=== PATIENT | female | born 1985 | race Caucasian/White ===

== ENCOUNTER 2016-02-13 06:37 | Inpatient (IN) | payer OTHER ==
[2016-02-13] MEDS ORDERED: OXYTOCIN/NORMAL SALINE 1,000 ML IV PRN ×2 (06:58→18:13)
[2016-02-13] MEDS ORDERED: RINGERS SOLUTION,LACTATED 300 ML IV ONE (06:58)
[2016-02-13 07:08] LABS: APPEARANCE,URINE CLOUDY; BILIRUBIN,URINE NEGATIVE (NEGATIVE); GLUCOSE, URINE NEGATIVE (NEGATIVE); KETONES,URINE NEGATIVE (NEGATIVE); LEUKOCYTE ESTERASE,URINE LARGE (NEGATIVE); NITRITE,URINE NEGATIVE (NEGATIVE); PROTEIN,URINE NEGATIVE (NEGATIVE); UROBILINOGEN,URINE NEGATIVE mg/dL (<2.0)
[2016-02-13 07:29] LABS: URINE BARBITURATES SCREEN NEGATIVE; URINE METHADONE SCREEN NEGATIVE; URINE PHENCYCLIDINE SCREEN NEGATIVE
[2016-02-13 07:39] LABS: ABSOLUTE EOSINOPHILS # (AUTO) 0.1 10^3/uL (0.0-0.6); ABSOLUTE LYMPHOCYTES (AUTO) 1.2 10^3/uL (0.5-4.7); ABSOLUTE MONOCYTES (AUTO) 0.7 10^3/uL (0.1-1.4); ABSOLUTE NEUT (AUTO) 7.1 10^3/uL (1.7-8.2); BASOPHILS % (AUTO) 0.3 % (0-2); EOSINOPHILS % (AUTO) 0.8 % (0-6); HEMATOCRIT 36.5 % (36.0-47.0); HEMOGLOBIN 12.5 g/dL (12.0-15.5); LYMPHOCYTES % (AUTO) 12.8 % (13-45); MEAN CORPUSCULAR HGB CONC 34.4 g/dL (32.0-36.0); MEAN CORPUSCULAR VOLUME 87 fl (80-97); MONOCYTES % (AUTO) 7.4 % (3-13); RED BLOOD COUNT 4.18 10^6/uL (3.72-5.28); RED CELL DISTRIBUTION WIDTH 13.5 % (11.5-14.0); SEGMENTED NEUTROPHILS % (AUTO) 78.7 % (42-78); WHITE BLOOD COUNT 9.1 10^3/uL (4.0-10.5)
[2016-02-13] MEDS ORDERED: MAG HYDROX/AL HYDROX/SIMETH SUSP 30 ML UDCUP ONE (07:59)
[2016-02-13] MEDS ORDERED: MAG HYDROX/AL HYDROX/SIMETH SUSP 30 ML UDCUP PO ONE (08:00)
--- NOTE | 2016-02-13 08:01 | L&D Flow Sheet ---
LD Flowsheet Datetime Report Generated by CPN: 02/13/2016 08:00 Datetime: 02/13/2016 07:33 NBP Sys/Dianne/Mean (mmHg): 116 (QS system process) : 74 (QS system process) : 90 (QS system process) Pulse: 93 (QS system process) LaborFlag: Labor (QS system process) Datetime: 02/13/2016 07:30 Vital Signs Stage of : Labor (Aida Mills, RN) Respirations: 16 (Aida Mills, RN) Temperature (F): 98.2 (Aida Mills, RN) Temperature (C): 36.8 (QS system process) Uterine Activity Monitor Mode: External (Aida Mills, RN) Frequency (min): NONE (Aida Mills, RN) Resting Tone (Palpate): Relaxed (Aida Mills, RN) Assessment A Monitor Mode: External US (Aida Mills, RN) FHR Baseline Rate : 140 (Aida Mills, RN) FHR Baseline Changes: No Baseline Change (Aida Mills, RN) Variability: Moderate 6-25 bpm (Aida Mills, RN) Accelerations: 15X15 (Aida Mills, RN) Decelerations: None (Aida Mills, RN) Pain Pain Scale: 0 (Aida Mills, [place]) Pain Presence: None/Denies (Aida Mills, RN) Pain Type: N/A (Aida Mills, RN) Pain Relief Measures: Comfort Measures (Aida Mills, RN) Vaginal Exam Membrane Status: Intact (Aida Mills, [place]) Patient Position/Activity: Left Tilt; Semi-Fowlers (Aida Mills, RN) Comfort Measures: Family Support (Aida Mills, [place]) Teaching Instructional Method: Verbal; Patient Instructed; Family/Support Person Instructed; Verbalized Understanding (Aida Mills RN) Plan of Care: Plan of Care Discussed; Induction (Aida Mills RN) Labor/Induction: Labor Stages; Induction (Aida Mills RN) Pain Management: Pain Scale/Goals; Comfort Measures (Aida Mills RN) Medications: Pitocin (Aida Mills RN) Communication Communication: RN at Bedside; RN Reviewed Strip (Aida Mills RN) LaborFlag: Labor (QS system process) Datetime: 02/13/2016 07:18 Communication Comments: Bedside report given to L Rouland, RN (Maame Seth, RN) Datetime: 02/13/2016 07:15 Patient Care IV/Blood Work: Labs Drawn (Maame Seth, RN) Datetime: 02/13/2016 07:11 Patient Care IV/Blood Work: IV Started; IV Bolus Started; IV Infusing per Order; New IV Bag Silvino (Opal Buck RN)
[2016-02-13] MEDS ORDERED: MISOPROSTOL 0.2 MG TABLET ONE (08:08)
[2016-02-13] MEDS ORDERED: OXYTOCIN/NORMAL SALINE 20 UNIT/1,000 ML RTUINJ ONE (08:08)
[2016-02-13] MEDS ORDERED: LIDOCAINE 1% INJ-PF (10 MG/ML) 30 ML SDV ONE (08:08)
[2016-02-13] MEDS: RINGERS SOLUTION,LACTATED 1,000 ML IV PRN ×3 (10:06→14:21)
[2016-02-13] MEDS ORDERED: ONDANSETRON 4 MG TAB.RAPDIS ONE (11:17)
[2016-02-13] MEDS ORDERED: ONDANSETRON 4 MG TAB.RAPDIS PO ONE (11:30)
--- NOTE | 2016-02-13 12:02 | L&D Flow Sheet ---
LD Flowsheet Datetime Report Generated by CPN: 02/13/2016 12:00 Datetime: 02/13/2016 11:45 Stage of : Labor (Aida Mills RN) Respirations: 18 (Aida Mills RN) Monitor Mode: External (Aida Mills RN) Monitor Interventions for UA: [place] Adjusted (Aida Mills RN) Frequency (min): 1.5-5.5 (Aida Mills RN) Quality: Mild/Moderate (Aida Mills RN) Duration (sec): 55-120 (Aida Mills RN) Resting Tone (Palpate): Relaxed (Aida Mills RN) Monitor Mode: External US (Aida Mills RN) Monitor Interventions for FHR: Ultrasound Adjusted (Aida Mills RN) FHR Baseline Rate : 130 (Aida Mills RN) FHR Baseline Changes: No Baseline Change (Aida Mills RN) Variability: Moderate 6-25 bpm (Aida Mills RN) Accelerations: None (Aida Mills RN) Decelerations: None (Aida Mills RN) Pain Scale: 1 (Aida Mills RN) Pain Presence: Intermittent (Aida Mills RN) Pain Type: Contraction (Aida Mills RN) Pain Location: Abdomen (Aida Mills RN) Pain Relief Measures: Comfort Measures (Aida Mills RN) Pain Coping: Talking Through Contractions (Aida Mills RN) Pitocin (milliunit): Pitocin Remains (milliunits) @ 20 (Aida Mills, [place]) IV/Blood Work: IV Infusing per Order (Adia Mills, [place]) Comfort Measures: Rocking Chair; Family Support (Aida Mills, [place]) Communication: RN at Bedside; RN Reviewed Strip (Aida Mills RN) LaborFlag: Labor (QS system process) Datetime: 02/13/2016 11:40 Stage of : Labor (Aida Mills RN) Monitor Interventions for FHR: Ultrasound Adjusted (Aida Mills RN) Communication: RN at Bedside; RN Reviewed Strip (Aida Mills RN) Datetime: 02/13/2016 11:33 NBP Sys/Dianne/Mean (mmHg): 114 (QS system process) : 72 (QS system process) : 87 (QS system process) Pulse: 94 (QS system process) LaborFlag: Labor (QS system process) Datetime: 02/13/2016 11:30 Stage of : Labor (Aida Mills RN) Respirations: 18 (Aida Mills RN) Monitor Mode: External (Aida Mills RN) Monitor Interventions for UA: [place] Adjusted (Aida Mills RN) Frequency (min): 2.5-3 (Aida Mills RN) Quality: Mild/Moderate (Aida Mills RN) Duration (sec): 60-70 (Aida Mills, RN) Resting Tone (Palpate): Relaxed (Aida Mills RN) Monitor Mode: External US (Aida Mills RN) Monitor Interventions for FHR: Ultrasound Adjusted (Aida Mills RN) FHR Baseline Rate : 125 (Aida Mills RN) FHR Baseline Changes: No Baseline Change (Aida Mills RN) Variability: Moderate 6-25 bpm (Aida Jess Roulund, RN) Accelerations: 15X15 (Aida Mills, [place]) Decelerations: None (Aida Mills, RN) Pain Scale: 1 (Aida Mills RN) Pain Presence: Intermittent (Aida Mills RN) Pain Type: Contraction (Aida Mills RN) Pain Location: Abdomen (Aida Mills, RN) Pain Relief Measures: Comfort Measures (Aida Mills RN) Pain Coping: Talking Through Contractions (iAda Mills, [place]) Pitocin (milliunit): Pitocin Remains (milliunits) @ 20 (Aida Mills, RN) IV/Blood Work: IV Infusing per Order; New IV Bag Hung (Aida Mills, [place]) Comfort Measures: Rocking Chair; Family Support (Aida Mills, [place]) I/O Interventions: Ice Chips Given (Aida Mills, RN) Communication: RN at Bedside; RN Reviewed Strip (Aida Mills, [place]) LaborFlag: Labor (QS system process) Datetime: 02/13/2016 11:20 Stage of : Labor (Aida Mills, [place]) Monitor Interventions for UA: [place] Adjusted (Aida Mills, [place]) Monitor Interventions for FHR: Ultrasound Adjusted (Aida Mills, [place]) Antiemetics/Antacids: Zofran PO (mg) @ 1120 (Aida Mills, RN) I/O Interventions: Up to BR (Aida Mills, [place]) Communication: RN at Bedside (Aida Mills RN) Datetime: 02/13/2016 11:15 Stage of : Labor (Aida Mills RN) Respirations: 18 (Aida Mills RN) Monitor Mode: External (Aida Mills RN) Frequency (min): 2-3 (Aida Mills RN) Quality: Mild/Moderate (Aida Mills RN) Duration (sec): 60-80 (Aida Mills RN) Resting Tone (Palpate): Relaxed (Aida Mills RN) Monitor Mode: External US (Aida Mills RN) FHR Baseline Rate : 130 (Aida Mills RN) FHR Baseline Changes: No Baseline Change (Aida Mills RN) Variability: Moderate 6-25 bpm (Aida Mills RN) Accelerations: 15X15 (Aida Mills RN) Decelerations: None (Aida Mills RN) Pain Scale: 1 (Aida Mills RN) Pain Presence: Intermittent (Aida Mills RN) Pain Type: Contraction (Aida Mills RN) Pain Location: Abdomen (Aida Mills RN) Pain Relief Measures: Comfort Measures (Aida Mills RN) Pain Coping: Talking Through Contractions (Aida Mills RN) Nausea/Vomiting: Present (Aida Mills RN) Pitocin (milliunit): Pitocin Remains (milliunits) @ 20 (Aida Mills RN) Patient Position/Activity: Right Tilt; Semi-Fowlers (Aida Mills, RN) Comfort Measures: Family Support (Aida Mills, RN) Patient Care Comments: emesis X1 (Aida Mills, RN) Communication: Provider Orders Received (Aida Mills, RN) Communication: RN at Bedside; RN Reviewed Strip; Report Given to @ Blanca TELLO CNM (Aida Mills, [place]) Notification Reason: Status Update (Aida Mills RN) LaborFlag: Labor (QS system process) Datetime: 02/13/2016 11:04 NBP Sys/Dianne/Mean (mmHg): 117 (QS system process) : 77 (QS system process) : 92 (QS system process) Pulse: 81 (QS system process) LaborFlag: Antepartum (QS system process) Datetime: 02/13/2016 11:00 Stage of : Antepartum (Aida Mills RN) Respirations: 18 (Aida Mills RN) Monitor Mode: External (Aida Mills RN) Frequency (min): 2.5-3 (Aida Mills RN) Quality: Mild (Aida Mills RN) Duration (sec): 60-80 (Aida Mills, [place]) Resting Tone (Palpate): Relaxed (Aida Mills, [place]) Monitor Mode: External US (Aida Mills RN) FHR Baseline Rate : 130 (Aida Mills RN) FHR Baseline Changes: No Baseline Change (Aida Mills RN) Variability: Moderate 6-25 bpm (Aida Mills, [place]) Accelerations: 15X15 (Aida Mills, [place]) Decelerations: None (Aida Mills, [place]) Pain Scale: 0 (Aida Mills RN) Pain Presence: Intermittent (Aida Mills RN) Pain Type: Cramping (Aida Mills, [place]) Pain Location: Abdomen (Aida Mills, [place]) Pain Relief Measures: Comfort Measures (Aida Mills, [place]) Pain Coping: Talking Through Contractions (Aida Mills, [place]) Pitocin (milliunit): Pitocin Remains (milliunits) @ 20 (Aida Mills, RN) IV/Blood Work: IV Infusing per Order (Aida Mills, RN) Patient Position/Activity: Left Tilt; Semi-Fowlers (Aida Mills, RN) Comfort Measures: Family Support (Aida Mills, RN) Communication: RN at Bedside; RN Reviewed Strip (Aida Mills, [place]) LaborFlag: Antepartum (QS system process) Datetime: 02/13/2016 10:45 Stage of : Antepartum (Aida Mills RN) Respirations: 16 (Aida Mills RN) Monitor Mode: External (Aida Mills RN) Frequency (min): 3.5 (Aida Mills RN) Quality: Mild (Aida Mills RN) Duration (sec): 60-80 (Aida Mills, RN) Resting Tone (Palpate): Relaxed (Aida Mills, [place]) Monitor Mode: External US (Aida Mills RN) FHR Baseline Rate : 130 (Aida Mills RN) FHR Baseline Changes: No Baseline Change (Aida Mills RN) Variability: Moderate 6-25 bpm (Aida Mills RN) Accelerations: 15X15 (Aida Mills, RN) Decelerations: None (Aida Mills, [place]) Pain Relief Measures: Comfort Measures (Aida Mills RN) Pain Coping: Talking Through Contractions (Aida Mills, [place]) Pitocin (milliunit): Pitocin Remains (milliunits) @ 20 (Aida Mills, [place]) IV/Blood Work: IV Infusing per Order (Aida Mills, [place]) Patient Position/Activity: Left Tilt; Semi-Fowlers (Aida Mills, RN) Comfort Measures: Family Support (Aida Mills, [place]) Communication: RN at Bedside; RN Reviewed Strip (Aida Mills RN) LaborFlag: Antepartum (QS system process) Datetime: 02/13/2016 10:33 NBP Sys/Dianne/Mean (mmHg): 120 (QS system process) : 74 (QS system process) : 91 (QS system process) Pulse: 86 (QS system process) LaborFlag: Antepartum (QS system process) Datetime: 02/13/2016 10:30 Stage of : Antepartum (Aida Mills RN) Respirations: 18 (Aida Mills RN) Monitor Mode: External (Aida Mills RN) Frequency (min): 3-4 (Aida Mills RN) Quality: Mild (Aida Mills RN) Duration (sec): 60-80 (Aida Mills RN) Resting Tone (Palpate): Relaxed (Aida Mills RN) Monitor Mode: External US (Aida Mills RN) FHR Baseline Rate : 135 (Aida Mills RN) FHR Baseline Changes: No Baseline Change (Aida Mills RN) Variability: Moderate 6-25 bpm (Aida Mills RN) Accelerations: 15X15 (Aida Mills RN) Decelerations: None (Aida Mills RN) Pain Relief Measures: Comfort Measures (Aida Mills RN) Pain Coping: Talking Through Contractions (Aida Mills RN) Pitocin (milliunit): Pitocin Increased to (milliunits) @ 20 (Aida Mills, [place]) Patient Position/Activity: Left Tilt; Semi-Fowlers (Aida Mills, [place]) Comfort Measures: Family Support (Aida Mills RN) Communication: RN at Bedside; RN Reviewed Strip (Aida Mills RN) LaborFlag: Antepartum (QS system process) Datetime: 02/13/2016 10:14 Stage of : Antepartum (Aida Mills RN) Respirations: 18 (Aida Mills RN) Monitor Mode: External (Aida Mills RN) Frequency (min): 2.5-3 (Aida Mills RN) Quality: Mild (Aida Mills RN) Duration (sec): 60-80 (Aida Mills RN) Resting Tone (Palpate): Relaxed (Aida Mills RN) Monitor Mode: External US (Aida Mills RN) FHR Baseline Rate : 135 (Aida Mills RN) FHR Baseline Changes: No Baseline Change (Aida Mills RN) Variability: Moderate 6-25 bpm (Aida Mills RN) Accelerations: 15X15 (Aida Mills RN) Decelerations: None (Aida Mills RN) Pain Relief Measures: Comfort Measures (Aida Mills RN) Pain Coping: Talking Through Contractions (Aida Mills RN) Pitocin (milliunit): Pitocin Increased to (milliunits) @ 18 (Aida Mills RN) Patient Position/Activity: Left Tilt; Semi-Fowlers (Aida Mills RN) Comfort Measures: Family Support (Aida Mills RN) Communication: RN at Bedside; RN Reviewed Strip (Aida Mills RN) LaborFlag: Antepartum (QS system process) Datetime: 02/13/2016 10:03 NBP Sys/Dianne/Mean (mmHg): 112 (QS system process) : 72 (QS system process) : 87 (QS system process) Pulse: 90 (QS system process) LaborFlag: Antepartum (QS system process) Datetime: 02/13/2016 10:00 Stage of : Antepartum (Aida Mills RN) Respirations: 16 (Aida Mills RN) Monitor Mode: External (Aida Mills RN) Frequency (min): 2.5-4 (Aida Mills RN) Quality: Mild (Aida Mills RN) Duration (sec): 80-100 (Aida Mills, [place]) Resting Tone (Palpate): Relaxed (Aida Mills RN) Monitor Mode: External US (Aida Mills RN) FHR Baseline Rate : 135 (Aida Mills RN) FHR Baseline Changes: No Baseline Change (Aida Mills RN) Variability: Moderate 6-25 bpm (Aida Mills, [place]) Accelerations: 15X15 (Aida Mills, [place]) Decelerations: None (Aida Mills RN) Pain Scale: 1 (Aida Mills RN) Pain Presence: None/Denies (Aida Mills RN) Pain Type: Cramping (Aida Mills RN) Pain Location: Abdomen (Aida Mills RN) Pain Relief Measures: Comfort Measures (Aida Mills RN) Pain Coping: Talking Through Contractions (Aida Mills, [place]) Pitocin (milliunit): Pitocin Increased to (milliunits) @ 16 (Aida Mills, [place]) Patient Position/Activity: Left Tilt; Semi-Fowlers (Aida Mills, RN) Comfort Measures: Family Support (Aida Mills, [place]) Communication: RN at Bedside; RN Reviewed Strip (Aida Mills RN) LaborFlag: Antepartum (QS system process) Datetime: 02/13/2016 09:45 Stage of : Antepartum (Aida Mills RN) Respirations: 16 (Aida Mills RN) Monitor Mode: External (Aida Mills RN) Frequency (min): 3-5 (Aida Mills RN) Quality: Mild (Aida Mills RN) Duration (sec): 80-120 (Aida Mills RN) Resting Tone (Palpate): Relaxed (Aida Mills RN) Monitor Mode: External US (Aida Mills RN) FHR Baseline Rate : 135 (Aida Mills RN) FHR Baseline Changes: No Baseline Change (Aida Mills RN) Variability: Moderate 6-25 bpm (Aida Mills RN) Accelerations: 15X15 (Aida Mills RN) Decelerations: None (Aida Mills RN) Pain Relief Measures: Comfort Measures (Aida Mills RN) Pain Coping: Talking Through Contractions (Aida Mills, [place]) Pitocin (milliunit): Pitocin Increased to (milliunits) @ 14 (Aida Mills, [place]) IV/Blood Work: IV Infusing per Order (Aida Mills, [place]) Patient Position/Activity: Left Tilt; Semi-Fowlers (Aida Mills, RN) Comfort Measures: Family Support (Aida Mills, [place]) Communication: RN at Bedside; RN Reviewed Strip (Aida Mills, [place]) LaborFlag: Antepartum (QS system process) Datetime: 02/13/2016 09:34 NBP Sys/Dianne/Mean (mmHg): 115 (QS system process) : 74 (QS system process) : 90 (QS system process) Pulse: 93 (QS system process) LaborFlag: Antepartum (QS system process) Datetime: 02/13/2016 09:30 Stage of : Antepartum (Aida Mills RN) Respirations: 16 (Aida Mlils RN) Monitor Mode: External (Aida Mills RN) Frequency (min): 3-4 (Aida Mills RN) Quality: Mild (Aida Mills RN) Duration (sec): 80-100 (Aida Mills RN) Resting Tone (Palpate): Relaxed (Aida Mills RN) Monitor Mode: External US (Aida Mills RN) FHR Baseline Rate : 135 (Aida Mills RN) FHR Baseline Changes: No Baseline Change (Aida Mills RN) Variability: Moderate 6-25 bpm (Aida Mills RN) Accelerations: 15X15 (Aida Mills RN) Decelerations: None (Aida Mills RN) Pain Scale: 0 (Aida Mills RN) Pain Presence: Intermittent (Aida Mills RN) Pain Type: Cramping (Aida Jess Roulund, RN) Pain Location: Abdomen (Aida Mills, RN) Pain Relief Measures: Comfort Measures (Aiad Mills, RN) Pain Coping: Talking Through Contractions (Aida Mills, RN) Pitocin (milliunit): Pitocin Increased to (milliunits) @ 12 (Aida Mills, RN) Patient Position/Activity: Left Tilt; Semi-Fowlers (Aida Mills, RN) Comfort Measures: Family Support (Aida Mills, RN) Communication: RN at Bedside; RN Reviewed Strip; Provider at Bedside (Aida Mills, RN) Communication Comments: Blanca TELLO, JEAN @ BS (Aida Mills, RN) LaborFlag: Antepartum (QS system process) Datetime: 02/13/2016 09:15 Stage of : Antepartum (Aida Mills RN) Respirations: 16 (Aida Mills RN) Monitor Mode: External (Aida Mills RN) Frequency (min): 3.5-4.5 (Aida Mills, [place]) Quality: Mild (Aida Mills, RN) Duration (sec): 70-90 (Aida Mills, RN) Resting Tone (Palpate): Relaxed (Aida Mills, [place]) Monitor Mode: External US (Aida Mills RN) FHR Baseline Rate : 135 (Aida Mills RN) FHR Baseline Changes: No Baseline Change (Aida Mills RN) Variability: Moderate 6-25 bpm (Aida Mills RN) Accelerations: 10X10 (Aida Mills RN) Decelerations: None (Aida Mills RN) Pain Relief Measures: Comfort Measures (Aida Mills RN) Pain Coping: Talking Through Contractions (Aida Mills RN) Pitocin (milliunit): Pitocin Increased to (milliunits) @ 10 (Aida Mills, RN) Patient Position/Activity: Left Tilt; Semi-Fowlers (Aida Mills, [place]) Comfort Measures: Family Support (Aida Mills RN) Communication: RN at Bedside; RN Reviewed Strip (Aida Mills RN) LaborFlag: Antepartum (QS system process) Datetime: 02/13/2016 09:04 NBP Sys/Dianne/Mean (mmHg): 111 (QS system process) : 71 (QS system process) : 85 (QS system process) Pulse: 93 (QS system process) LaborFlag: Antepartum (QS system process) Datetime: 02/13/2016 09:00 Stage of : Antepartum (Aida Mills RN) Respirations: 16 (Aida Mills RN) Monitor Mode: External (Aida Mills RN) Frequency (min): 2.5-4 (Aida Mills RN) Quality: Mild (Aida Mills RN) Duration (sec): 60-70 (Aida Mills RN) Resting Tone (Palpate): Relaxed (Aida Mills RN) Monitor Mode: External US (Aida Mills RN) FHR Baseline Rate : 135 (Aida Mills RN) FHR Baseline Changes: No Baseline Change (Aida Mills RN) Variability: Moderate 6-25 bpm (Aida Mills RN) Accelerations: 15X15 (Aida Mills, [place]) Decelerations: None (Aida Mills RN) Pain Scale: 0 (Aida Mills RN) Pain Presence: None/Denies (Aida Mills RN) Pain Type: N/A (Aida Mills, [place]) Pain Relief Measures: Comfort Measures (Aida Mills RN) Pain Coping: Talking Through Contractions (Aida Mills, [place]) Pitocin (milliunit): Pitocin Increased to (milliunits) @ 8 (Aida Mills, [place]) IV/Blood Work: IV Infusing per Order (Aida Mills, [place]) Patient Position/Activity: Left Tilt; Semi-Fowlers (Aida Mills, RN) Comfort Measures: Family Support (Aida Mlils, [place]) Communication: RN at Bedside; RN Reviewed Strip (Aida Mills RN) LaborFlag: Antepartum (QS system process) Datetime: 02/13/2016 08:45 Stage of : Antepartum (Aida Mills, [place]) Respirations: 16 (Aida Mills, RN) Monitor Mode: External (Aida Mills, RN) Monitor Interventions for UA: [place] Adjusted (Aida Mills, RN) Frequency (min): X2 (Aida Mills, RN) Quality: Mild (Aida Mills, [place]) Duration (sec): 80-150 (Aida Mills, RN) Resting Tone (Palpate): Relaxed (Aida Mills, RN) Monitor Mode: External US (Aida Mills, RN) Monitor Interventions for FHR: Ultrasound Adjusted (Aida Mills RN) FHR Baseline Rate : 135 (Aida Mills RN) FHR Baseline Changes: No Baseline Change (Aida Mills, [place]) Variability: Moderate 6-25 bpm (Aida Mills, [place]) Accelerations: 15X15 (Aida Mills, RN) Decelerations: None (Aida Mills, [place]) Pain Relief Measures: Comfort Measures (Aida Mills, [place]) Pain Coping: Talking Through Contractions (Aida Mills, [place]) Pitocin (milliunit): Pitocin Increased to (milliunits) @ 6 (Aida Mills, RN) IV/Blood Work: IV Infusing per Order (Aida Mills, [place]) Patient Position/Activity: Left Tilt; Semi-Fowlers (Aida Mills, RN) Comfort Measures: Family Support (Aida Mills, [place]) Communication: RN at Bedside; RN Reviewed Strip (Aida Mills, [place]) LaborFlag: Antepartum (QS system process) Datetime: 02/13/2016 08:30 Stage of : Antepartum (Aida Mills RN) Respirations: 16 (Aida Mills RN) Monitor Mode: External (Aida Mills RN) Monitor Interventions for UA: [place] Adjusted (Aida Mills RN) Frequency (min): X1 (Aida Mills RN) Quality: Mild (Aida Mills RN) Duration (sec): 120 (Aida Mills RN) Resting Tone (Palpate): Relaxed (Aida Mills RN) Monitor Mode: External US (Aida Mills RN) Monitor Interventions for FHR: Ultrasound Adjusted (Aida Mills RN) FHR Baseline Rate : 135 (Aida Mills RN) FHR Baseline Changes: No Baseline Change (Aida Mills, [place]) Variability: Moderate 6-25 bpm (Aida Mills RN) Accelerations: 15X15 (Aida Mills, [place]) Decelerations: None (Aida Mills, [place]) Pain Scale: 0 (Aida Mills RN) Pain Presence: None/Denies (Aida Mills RN) Pain Type: N/A (Aida Mills RN) Pain Relief Measures: Comfort Measures (Aida Mills RN) Pain Coping: Talking Through Contractions (Aida Mills RN) Pitocin (milliunit): Pitocin Increased to (milliunits) @ 4 (Aida Mills RN) IV/Blood Work: IV Infusing per Order (Aida Mills, RN) Patient Position/Activity: Left Tilt; Semi-Fowlers (Aida Mills, [place]) Comfort Measures: Family Support (Aida Mills RN) I/O Interventions: Up to BR (Aida Mills RN) Communication: RN at Bedside; RN Reviewed Strip (Aida Mills RN) LaborFlag: Antepartum (QS system process) Datetime: 02/13/2016 08:15 Stage of : Antepartum (Aida Mills RN) Respirations: 16 (Aida Mills RN) Monitor Mode: External (Aida Mills RN) Frequency (min): x1 (Aida Mills RN) Quality: Mild (Aida Mills RN) Duration (sec): 120 (Aida Mills RN) Resting Tone (Palpate): Relaxed (Aida Mills RN) Monitor Mode: External US (Aida Mills RN) FHR Baseline Rate : 135 (Aida Mills RN) FHR Baseline Changes: No Baseline Change (Aida Mills RN) Variability: Moderate 6-25 bpm (Aida Mills RN) Accelerations: 15X15 (Aida Mills, [place]) Decelerations: None (Aida Mills RN) Pain Relief Measures: Comfort Measures (Aida Mills RN) Pain Coping: Talking Through Contractions (Aida Mills RN) Pitocin (milliunit): Pitocin Started (milliunits) @ 2 (Aida Mills, RN) Patient Position/Activity: Left Tilt; Semi-Fowlers (Aida Mills, RN) Comfort Measures: Family Support (Aida Mills, RN) Instructional Method: Verbal; Patient Instructed; Family/Support Person Instructed; Verbalized Understanding (Aida Mills, [place]) Plan of Care: Plan of Care Discussed; Induction (Aida Mills, RN) Labor/Induction: Labor Stages; Induction (Aida Mills, RN) Pain Management: Epidural; Pain Scale/Goals; Comfort Measures (Aida Mills, [place]) Medications: Pitocin (Aida Mills, [place]) Communication: RN at Bedside; RN Reviewed Strip (Aida Mills RN) LaborFlag: Antepartum (QS system process) Datetime: 02/13/2016 08:03 NBP Sys/Dianne/Mean (mmHg): 107 (QS system process) : 70 (QS system process) : 84 (QS system process) Pulse: 101 (QS system process) LaborFlag: Antepartum (QS system process) Datetime: 02/13/2016 08:02 Stage of : Antepartum (Aida Mills RN) Respirations: 16 (Aida Mills RN) Monitor Mode: External (Aida Mills RN) Frequency (min): x1 (Aida Mills RN) Quality: Mild (Aida Mills RN) Duration (sec): 90 (Aida Mills RN) Resting Tone (Palpate): Relaxed (Aida Mills, [place]) Monitor Mode: External US (Aida Mills RN) FHR Baseline Rate : 135 (Aida Mills RN) FHR Baseline Changes: No Baseline Change (Aida Mills RN) Variability: Moderate 6-25 bpm (Aida Mills RN) Accelerations: 15X15 (Aida Mills, [place]) Decelerations: None (Aida Mills RN) Pain Scale: 0 (Aida Mills RN) Pain Presence: None/Denies (Aida Mills, [place]) Pain Type: N/A (Aida Mills, [place]) Pain Relief Measures: Comfort Measures (Aida Mills RN) Pain Coping: Talking Through Contractions (Aida Mills, [place]) IV/Blood Work: IV Infusing per Order (Aida Mills, [place]) Patient Position/Activity: Left Tilt; Semi-Fowlers (Aida Mills, [place]) Comfort Measures: Family Support (Aida Mills, [place]) Communication: RN at Bedside; RN Reviewed Strip (Aida Mills RN) LaborFlag: Antepartum (QS system process)
--- NOTE | 2016-02-13 12:08 | L&D Progress Notes ---
PROGRESS NOTES Datetime Report Generated by CPN: 02/13/2016 12:07 PROGRESS NOTE Impression Other: IOL-stable Procedures: Artificial ROM; Sterile Vag Exam Plan: Continue Present Management Plan Other: epidural for pain relief when requested Informed Consent Obtained: Vaginal Delivery; Vacuum/Forceps Assist; Risks, Benefits and Alternatives Discussed Vital Signs : Reviewed; Within Normal Limits Comment: S: Pt. breathing with contractions. Episode of vomiting x1 feeling better after zofran. Desires to proceed with AROM, desires epidural at some point for pain management O: as stated above, pit @ 20mu/min A: IOL-stable, progressing, AROM-Moderate amount of clear fluid P: continue IOL with pitocin, epidural prn. Reasess in 4 hours or as clinically indicated. Pt. and asked questions and verbalized understanding. VAGINAL EXAM Dilatation: 4 Effacement: 60 Station: -1 Contractions: q 2-4 min MEMBRANES Membranes: Ruptured Amniotic Fluid Color: Clear FETUS A FHR - Baseline: 125 Monitoring: External US Variability: Moderate 6-25bpm Accelerations: 15X15 Decelerations: None FHR Category: Category I Presentation: Vertex SIGNATURE SIGNATURE: [id number] Assignment: Harmony Cardona MD Signature: with User ID: Saira : with User ID: [email or web address]
[2016-02-13] MEDS ORDERED: FENTANYL CITRATE INJ/PF 100 MCG/2 ML AMPUL ONE ×2 (13:06→17:10)
[2016-02-13] MEDS ORDERED: PHENYLEPHRINE HCL INJ/PF 10 MG/1 ML SDV ONE (13:07)
[2016-02-13] MEDS ORDERED: FENTANYL/BUPIVACAINE/NS/PF 200 MCG/100 ML RTUINJ EPI ONE (13:07)
[2016-02-13] MEDS ORDERED: EPHEDRINE SULFATE INJ 50 MG/1 ML AMPULE ONE (13:07)
[2016-02-13] MEDS ORDERED: BUPIVACAINE HCL 0.25 % INJ/PF (2.5 MG/1 ML) 30 ML VIAL ONE (13:07)
--- NOTE | 2016-02-13 16:01 | L&D Flow Sheet ---
LD Flowsheet Datetime Report Generated by CPN: 02/13/2016 16:00 Datetime: 02/13/2016 15:57 Provider Reviewed Strip: Yes (Kamala Vitrano, RN) Communication: RN at Bedside; Provider at Bedside (Kamala Vitrano, RN) Communication Comments: C. Eason, CNM at bedside for delivery (Kamala Vitrano, RN) Datetime: 02/13/2016 15:56 I/O Interventions: Montes Discontinued (Kamala Vitrano, RN) Datetime: 02/13/2016 15:53 Dilatation (cm): 10.0 (Kamala Vitrano, RN) Effacement (%): 100 (Kamala Vitrano, RN) Station: 2 (Kamala Vitrano, RN) Exam by: Geovanna Mills RN (Kamala Vitrano, RN) Communication Comments: Kenney Eason CNM on unit and notified of SVE (Kamala Vitrano, RN) Datetime: 02/13/2016 15:51 Communication Comments: CHRISTY QuinnM called (Kamala Vitrano, RN) Datetime: 02/13/2016 15:46 Stage of : Labor (Aida Mills RN) NBP Sys/Dianne/Mean (mmHg): 98 (QS system process) : 67 (QS system process) : 78 (QS system process) Pulse: 107 (QS system process) Respirations: 18 (Aida Mills RN) Monitor Mode: External (Aida Mills RN) Frequency (min): 1.5-3 (Aida Mills RN) Quality: Moderate to Strong (Aida Mills RN) Duration (sec): 55-70 (Aida Mills RN) Resting Tone (Palpate): Relaxed (Aida Mills RN) Monitor Mode: External US (Aida Mills RN) FHR Baseline Rate : 125 (Aida Mills RN) FHR Baseline Changes: No Baseline Change (Aida Mills RN) Variability: Moderate 6-25 bpm (Aida Mills, HAMMAD) Accelerations: 15X15 (Aida Mills, HAMMAD) Decelerations: Early (Aida Mills, HAMMAD) Pain Scale: 1 (Aida Mills RN) Pain Presence: Intermittent (Aida Mills RN) Pain Type: Pressure (Aida Mills RN) Pain Location: Perineum (Aida Mills RN) Pain Relief Measures: Comfort Measures (Aida Mills RN) Pain Coping: Talking Through Contractions (Aida Mills, HAMMAD) Pitocin (milliunit): Pitocin Remains (milliunits) @ 14 (Aida Mills, HAMMAD) Patient Position/Activity: Peanut Ball; Right Extreme (Aida Mills, HAMMAD) Comfort Measures: Family Support (Aida Mills, HAMMAD) Communication: RN at Bedside; RN Reviewed Strip (Aida Mills RN) LaborFlag: Labor (QS system process) Datetime: 02/13/2016 15:33 Stage of : Labor (Aida Mills RN) Provider Reviewed Strip: Yes (Aida Mills RN) Communication: Report Given to @ Blanca EASON CNM (Aida Mills RN) Notification Reason: Status Update; Status; Labor Status (Aida Mills RN) Datetime: 02/13/2016 15:30 Stage of : Labor (Aida Mills RN) NBP Sys/Dianne/Mean (mmHg): 108 (QS system process) : 56 (QS system process) : 75 (QS system process) Pulse: 82 (QS system process) Respirations: 20 (Aida Mills RN) Monitor Mode: External (Aida Mills RN) Frequency (min): 2.5-3 (Aida Mills RN) Quality: Moderate to Strong (Aida Mills RN) Resting Tone (Palpate): Relaxed (Aida Mills RN) Monitor Mode: External US (Aida Mills RN) Monitor Interventions for FHR: Ultrasound Adjusted (Aida Mills RN) FHR Baseline Rate : 125 (Aida Mills RN) FHR Baseline Changes: No Baseline Change (Aida Mills RN) Variability: Moderate 6-25 bpm (Aida Mills, HAMMAD) Accelerations: 15X15 (Aida Mills, RN) Decelerations: Early (Aida Mills RN) Pain Scale: 1 (Aida Mills RN) Pain Presence: Intermittent (Aida Mills, HAMMAD) Pain Type: Pressure (Aida Mills, RN) Pain Location: Perineum (Aida Mills, HAMMAD) Pain Relief Measures: Comfort Measures (Aida Mills RN) Pain Coping: Talking Through Contractions (Aida Mills, HAMMAD) Pitocin (milliunit): Pitocin Remains (milliunits) @ 14 (Aida Mills, HAMMAD) Patient Position/Activity: Peanut Ball; Right Extreme (Aida Mills, RN) Comfort Measures: Family Support (Aida Mills, HAMMAD) Communication: RN at Bedside; RN Reviewed Strip (Aida Mills, HAMMAD) LaborFlag: Labor (QS system process) Datetime: 02/13/2016 15:14 Stage of : Labor (Aida Mills RN) NBP Sys/Dianne/Mean (mmHg): 100 (QS system process) : 61 (QS system process) : 76 (QS system process) Pulse: 89 (QS system process) Respirations: 20 (Aida Mills RN) Monitor Mode: External (Aida Mills RN) Frequency (min): 2-3.5 (Aida Mills RN) Quality: Moderate to Strong (Aida Mills RN) Duration (sec): 40-60 (Aida Mills, RN) Resting Tone (Palpate): Relaxed (Aida Mills RN) Monitor Mode: External US (Aida Mills RN) Monitor Interventions for FHR: Ultrasound Adjusted (Aida Mills RN) FHR Baseline Rate : 125 (Aida Mills, HAMMAD) FHR Baseline Changes: No Baseline Change (Aida Mills RN) Variability: Moderate 6-25 bpm (Aida Mills, [place]M[place]) Accelerations: 15X15 (Aida Mills, H[facility]MAD) Decelerations: Early (Aida Mills RN) Pain Scale: 1 (Aida Mills RN) Pain Presence: Intermittent (Aida Mills RN) Pain Type: Pressure (Aida Mills, HAMMAD) Pain Location: Perineum (Aida Mills, HAMMAD) Pain Relief Measures: Comfort Measures (Aida Mills RN) Pain Coping: Talking Through Contractions (Aida Mills, HAMMAD) Pitocin (milliunit): Pitocin Remains (milliunits) @ 14 (Aida Mills, HAMMAD) IV/Blood Work: IV Infusing per Order (Aida Mills, HAMMAD) Patient Position/Activity: Left Extreme; Peanut Ball (Aiad Mills, RN) Comfort Measures: Family Support (Aida Mills, HAMMAD) Communication: RN at Bedside; RN Reviewed Strip (Aida Mills RN) LaborFlag: Labor (QS system process) Datetime: 02/13/2016 15:02 Stage of : Labor (Aida Mills, HAMMAD) Respirations: 18 (Aida Mlils, HAMMAD) Monitor Mode: External (Aida Mills RN) Monitor Interventions for UA: [place] Adjusted (Aida Mills, HAMMAD) Frequency (min): 2-3.5 (Aida Mills, HAMMAD) Quality: Moderate to Strong (Aida Mills RN) Duration (sec): 55-70 (Aida Mills, RN) Resting Tone (Palpate): Relaxed (Aida Mills, HAMMAD) Monitor Mode: External US (Aida Mills RN) FHR Baseline Rate : 125 (Aida Mills RN) FHR Baseline Changes: No Baseline Change (Aida Mills, HAMMAD) Variability: Moderate 6-25 bpm (Aida Mills, HAMMAD) Accelerations: None (Aida Mills, HAMMAD) Decelerations: Early (Aida Mills, HAMMAD) Pain Scale: 1 (Aida Mills, H[place]MAD) Pain Presence: Intermittent (Aida Mills RN) Pain Type: Pressure (Aida Mills, H[place]) Pain Location: Perineum (Aida Mills, HAMMAD) Pain Relief Measures: Comfort Measures (Aida Mills, RN) Pain Coping: Talking Through Contractions (Aida Mills, HAMMAD) Pitocin (milliunit): Pitocin Remains (milliunits) @ 14 (Aida Mills, HAMMAD) IV/Blood Work: IV Infusing per Order (Aida Mills, HAMMAD) Patient Position/Activity: Left Extreme; Peanut Ball (Aida Mills, HAMMAD) Comfort Measures: Family Support (Aida Mills, HAMMAD) Communication: RN at Bedside; RN Reviewed Strip (Aida Mills RN) LaborFlag: Labor (QS system process) Datetime: 02/13/2016 14:59 NBP Sys/Dianne/Mean (mmHg): 100 (QS system process) : 61 (QS system process) : 75 (QS system process) Pulse: 91 (QS system process) LaborFlag: Labor (QS system process) Datetime: 02/13/2016 14:57 NBP Sys/Dianne/Mean (mmHg): 99 (QS system process) : 60 (QS system process) : 75 (QS system process) Pulse: 87 (QS system process) LaborFlag: Labor (QS system process) Datetime: 02/13/2016 14:53 NBP Sys/Dianne/Mean (mmHg): 98 (QS system process) : 58 (QS system process) : 72 (QS system process) Pulse: 84 (QS system process) LaborFlag: Labor (QS system process) Datetime: 02/13/2016 14:47 NBP Sys/Dianne/Mean (mmHg): 117 (QS system process) : 65 (QS system process) : 85 (QS system process) Pulse: 88 (QS system process) LaborFlag: Labor (QS system process) Datetime: 02/13/2016 14:45 Stage of : Labor (Aida Mills RN) Respirations: 20 (Aida Mills RN) Temperature (F): 98.2 (Aida Mills RN) Temperature (C): 36.8 (QS system process) Monitor Mode: External (Aida Mills RN) Frequency (min): 1.5-3 (Aida Mills RN) Quality: Moderate to Strong (Aida Mills RN) Duration (sec): 60-80 (Aida Mills RN) Resting Tone (Palpate): Relaxed (Aida Mills RN) Monitor Mode: External US (Aida Mills RN) FHR Baseline Rate : 125 (Aida Mills RN) FHR Baseline Changes: No Baseline Change (Aida Mills RN) Variability: Moderate 6-25 bpm (Aida Mills, HAMMAD) Accelerations: 10X10 (Aida Mills RN) Decelerations: Early (Aida Mills RN) Pain Scale: 1 (Aida Mills RN) Pain Presence: Intermittent (Aida Mills RN) Pain Type: Pressure (Aida Mills RN) Pain Location: Perineum (Aida Mills RN) Pain Relief Measures: Comfort Measures (Aida Mills RN) Pain Coping: Talking Through Contractions (Aida Mills, HAMMAD) Pitocin (milliunit): Pitocin Remains (milliunits) @ 14 (Aida Mills, HAMMAD) IV/Blood Work: IV Infusing per Order (Aida Mills, RN) Patient Position/Activity: Left Extreme; Peanut Ball (Aida Mills, RN) Comfort Measures: Family Support (Aida Mills, HAMMAD) Communication: RN at Bedside; RN Reviewed Strip (Aida Mills, HAMMAD) LaborFlag: Labor (QS system process) Datetime: 02/13/2016 14:43 NBP Sys/Dianne/Mean (mmHg): 106 (QS system process) : 62 (QS system process) : 78 (QS system process) Pulse: 80 (QS system process) LaborFlag: Labor (QS system process) Datetime: 02/13/2016 14:39 NBP Sys/Dianne/Mean (mmHg): 107 (QS system process) : 59 (QS system process) : 79 (QS system process) Pulse: 77 (QS system process) LaborFlag: Labor (QS system process) Datetime: 02/13/2016 14:33 NBP Sys/Dianne/Mean (mmHg): 107 (QS system process) : 64 (QS system process) : 80 (QS system process) Pulse: 77 (QS system process) LaborFlag: Labor (QS system process) Datetime: 02/13/2016 14:30 Stage of : Labor (Aida Mills RN) Respirations: 18 (Aida Mills RN) Monitor Mode: External (Aida Mills RN) Frequency (min): 2-4 (Aida Mills RN) Quality: Moderate to Strong (Aida Mills RN) Duration (sec): 60-70 (Aida Mills, HAMMAD) Resting Tone (Palpate): Relaxed (Aida Mills RN) Monitor Mode: External US (Aida Mills RN) FHR Baseline Rate : 125 (Aida Mills RN) FHR Baseline Changes: No Baseline Change (Aida Mills, HAMMAD) Variability: Moderate 6-25 bpm (Aida Mills, HAMMAD) Accelerations: 15X15 (Aida Mills, HAMMAD) Decelerations: Early (Aida Mills, HAMMAD) Pain Scale: 0 (Aida Mills, HAMMAD) Pain Presence: None/Denies (Aida Mills RN) Pain Type: Pressure (Aida Mills, HAMMAD) Pain Location: Perineum (Aida Mills, RN) Pain Relief Measures: Comfort Measures (Aida Mills, HAMMAD) Pain Coping: Sleeping (Aida Mills, HAMMAD) Pitocin (milliunit): Pitocin Remains (milliunits) @ 14 (Aida Mills, HAMMAD) Patient Position/Activity: Right Lateral; Low Fowlers (Aida Mills, HAMMAD) Comfort Measures: Family Support (Aida Mills, HAMMAD) Provider Reviewed Strip: Yes (Aida Mills RN) Communication: RN at Bedside; RN Reviewed Strip (Aida Mills RN) Notification Reason: Status Update (Aida Mills RN) Communication Comments: DR STEWART REVIEWED STRIP (Aida Mills RN) LaborFlag: Labor (QS system process) Datetime: 02/13/2016 14:27 NBP Sys/Dianne/Mean (mmHg): 101 (QS system process) : 59 (QS system process) : 76 (QS system process) Pulse: 79 (QS system process) LaborFlag: Labor (QS system process) Datetime: 02/13/2016 14:22 NBP Sys/Dianne/Mean (mmHg): 101 (QS system process) : 56 (QS system process) : 76 (QS system process) Pulse: 82 (QS system process) LaborFlag: Labor (QS system process) Datetime: 02/13/2016 14:17 NBP Sys/Dianne/Mean (mmHg): 102 (QS system process) : 53 (QS system process) : 74 (QS system process) Pulse: 75 (QS system process) LaborFlag: Labor (QS system process) Datetime: 02/13/2016 14:15 Stage of : Labor (Aida Mills RN) Respirations: 18 (Aida Mills RN) Monitor Mode: External (Aida Mills RN) Monitor Interventions for UA: [place] Adjusted (Aida Mills RN) Frequency (min): 1.5-3 (Aida Mills RN) Quality: Moderate to Strong (Aida Mills RN) Duration (sec): 60-70 (Aida Mills RN) Resting Tone (Palpate): Relaxed (Aida Mills RN) Monitor Mode: External US (Aida Mills RN) Monitor Interventions for FHR: Ultrasound Adjusted (Aida Mills RN) FHR Baseline Rate : 120 (Aida Mills RN) FHR Baseline Changes: No Baseline Change (Aida Mills RN) Variability: Moderate 6-25 bpm (Aida Mills, HAMM[place]) Accelerations: None (Aida iMlls, HAMMAD) Decelerations: Early; Prolonged (Aida Mills RN) Pain Scale: 0 (Aida Mills RN) Pain Presence: Intermittent (Aida Mills RN) Pain Type: Pressure (Aida Mills RN) Pain Location: Perineum (Aida Mills RN) Pain Relief Measures: Comfort Measures (Aida Mills RN) Pain Coping: Sleeping (Aida Mills RN) Pitocin (milliunit): Pitocin Remains (milliunits) @ 14 (Aida Mills, HAMMAD) IV/Blood Work: New IV Bag Hung (Aida Mills, RN) Patient Position/Activity: Left Lateral; Low Fowlers (Aida Mills, HAMMAD) Comfort Measures: Family Support (Aida Mills RN) Communication: RN at Bedside; RN Reviewed Strip (Aida Mills RN) LaborFlag: Labor (QS system process) Datetime: 02/13/2016 14:12 NBP Sys/Dianne/Mean (mmHg): 100 (QS system process) : 51 (QS system process) : 72 (QS system process) Pulse: 82 (QS system process) LaborFlag: Labor (QS system process) Datetime: 02/13/2016 14:11 NBP Sys/Dianne/Mean (mmHg): 102 (QS system process) : 57 (QS system process) : 74 (QS system process) Pulse: 76 (QS system process) LaborFlag: Labor (QS system process) Datetime: 02/13/2016 14:10 NBP Sys/Dianne/Mean (mmHg): 102 (QS system process) : 51 (QS system process) : 73 (QS system process) Pulse: 76 (QS system process) LaborFlag: Labor (QS system process) Datetime: 02/13/2016 14:09 NBP Sys/Dianne/Mean (mmHg): 136 (QS system process) : 53 (QS system process) : 74 (QS system process) Pulse: 88 (QS system process) LaborFlag: Labor (QS system process) Datetime: 02/13/2016 14:07 NBP Sys/Dianne/Mean (mmHg): 106 (QS system process) : 56 (QS system process) : 78 (QS system process) Pulse: 93 (QS system process) LaborFlag: Labor (QS system process) Datetime: 02/13/2016 14:06 Stage of : Labor (Aida Mills RN) NBP Sys/Dianne/Mean (mmHg): 107 (QS system process) : 56 (QS system process) : 78 (QS system process) Pulse: 87 (QS system process) Actions for Decelerations: Side to Side; IV Bolus; Sterile Vaginal Exam (Aida Mills RN) Dilatation (cm): 4.0 (Aida Mills RN) Effacement (%): 90 (Aida Mills RN) Station: 0 (Aida Mills RN) Exam by: JANET MILLS RN (Aida Mills RN) Vaginal Bleeding: Normal Show (Aida Mills RN) Cervix, Consistency: Soft (Aida Mills RN) Cervix, Position: Midposition (Aida Mills RN) Communication: RN at Bedside; RN Reviewed Strip (Aida Mills RN) LaborFlag: Labor (QS system process) Datetime: 02/13/2016 14:05 NBP Sys/Dianne/Mean (mmHg): 109 (QS system process) : 56 (QS system process) : 79 (QS system process) Pulse: 84 (QS system process) LaborFlag: Labor (QS system process) Datetime: 02/13/2016 14:04 NBP Sys/Dianne/Mean (mmHg): 101 (QS system process) : 54 (QS system process) : 75 (QS system process) Pulse: 84 (QS system process) LaborFlag: Labor (QS system process) Datetime: 02/13/2016 14:03 NBP Sys/Dianne/Mean (mmHg): 108 (QS system process) : 56 (QS system process) : 79 (QS system process) Pulse: 75 (QS system process) LaborFlag: Labor (QS system process) Datetime: 02/13/2016 14:02 Stage of : Labor (Aida Mills RN) NBP Sys/Dianne/Mean (mmHg): 106 (QS system process) : 58 (QS system process) : 78 (QS system process) Pulse: 78 (QS system process) Respirations: 18 (Aida Mills RN) Monitor Mode: External (Aida Mills RN) Frequency (min): 1.5-2.5 (Aida Mills RN) Quality: Moderate to Strong (Aida Mills RN) Duration (sec): 60-70 (Aida Mills RN) Resting Tone (Palpate): Relaxed (Aida Mills RN) Monitor Mode: External US (Aida Mills RN) FHR Baseline Rate : 120 (Aida Jess Roulund, RN) FHR Baseline Changes: No Baseline Change (Aida Mills RN) Variability: Moderate 6-25 bpm (Aida Mills, HAMMAD) Accelerations: 15X15 (Aida Mills, HAMMAD) Decelerations: None (Aida Mills RN) Pain Scale: 0 (Aida Mills RN) Pain Presence: Intermittent (iAda Mills RN) Pain Type: Pressure (Aida Mills RN) Pain Location: Perineum (Aida Mills RN) Pain Relief Measures: Comfort Measures (Aida Mills RN) Pain Coping: Talking Through Contractions (Aida Mills, HAMMAD) Pain Assessment Comments: pressure only (Aida Mills, HAMMAD) Pitocin (milliunit): Pitocin Remains (milliunits) @ 14 (Aida Mills, HAMMAD) Patient Position/Activity: Left Tilt; Low Fowlers (Aida Mills, HAMMAD) Comfort Measures: Family Support (Aida Mills, HAMMAD) Communication: RN at Bedside; RN Reviewed Strip (Aida Mills, HAMMAD) LaborFlag: Labor (QS system process) Datetime: 02/13/2016 14:01 NBP Sys/Dianne/Mean (mmHg): 105 (QS system process) : 59 (QS system process) : 78 (QS system process) Pulse: 87 (QS system process) LaborFlag: Labor (QS system process) Datetime: 02/13/2016 14:00 NBP Sys/Dianne/Mean (mmHg): 104 (QS system process) : 58 (QS system process) : 78 (QS system process) Pulse: 85 (QS system process) LaborFlag: Labor (QS system process) Datetime: 02/13/2016 13:59 NBP Sys/Dianne/Mean (mmHg): 100 (QS system process) : 53 (QS system process) : 74 (QS system process) Pulse: 84 (QS system process) LaborFlag: Labor (QS system process) Datetime: 02/13/2016 13:58 NBP Sys/Dianne/Mean (mmHg): 109 (QS system process) : 59 (QS system process) : 80 (QS system process) Pulse: 81 (QS system process) LaborFlag: Labor (QS system process) Datetime: 02/13/2016 13:57 NBP Sys/Dianne/Mean (mmHg): 105 (QS system process) : 55 (QS system process) : 72 (QS system process) Pulse: 88 (QS system process) LaborFlag: Labor (QS system process) Datetime: 02/13/2016 13:56 NBP Sys/Dianne/Mean (mmHg): 98 (QS system process) : 53 (QS system process) : 70 (QS system process) Pulse: 81 (QS system process) LaborFlag: Labor (QS system process) Datetime: 02/13/2016 13:55 NBP Sys/Dianne/Mean (mmHg): 91 (QS system process) : 53 (QS system process) : 68 (QS system process) Pulse: 80 (QS system process) LaborFlag: Labor (QS system process) Datetime: 02/13/2016 13:54 NBP Sys/Dianne/Mean (mmHg): 102 (QS system process) : 58 (QS system process) : 76 (QS system process) Pulse: 86 (QS system process) LaborFlag: Labor (QS system process) Datetime: 02/13/2016 13:53 NBP Sys/Dianne/Mean (mmHg): 105 (QS system process) : 59 (QS system process) : 77 (QS system process) Pulse: 86 (QS system process) LaborFlag: Labor (QS system process) Datetime: 02/13/2016 13:52 NBP Sys/Dianne/Mean (mmHg): 103 (QS system process) : 57 (QS system process) : 77 (QS system process) Pulse: 75 (QS system process) LaborFlag: Labor (QS system process) Datetime: 02/13/2016 13:51 NBP Sys/Dianne/Mean (mmHg): 113 (QS system process) : 58 (QS system process) : 78 (QS system process) Pulse: 78 (QS system process) LaborFlag: Labor (QS system process) Datetime: 02/13/2016 13:50 NBP Sys/Dianne/Mean (mmHg): 105 (QS system process) : 55 (QS system process) : 76 (QS system process) Pulse: 76 (QS system process) LaborFlag: Labor (QS system process) Datetime: 02/13/2016 13:49 Stage of : Labor (Aida Mills RN) NBP Sys/Dianne/Mean (mmHg): 112 (QS system process) : 59 (QS system process) : 80 (QS system process) Pulse: 75 (QS system process) Pitocin (milliunit): Pitocin Decreased to (milliunits) @ 14 (Aida Mills RN) IV/Blood Work: IV Infusing per Order (Aida Mills RN) I/O Interventions: Montes Cath Inserted (Aida Mills RN) Communication: RN at Bedside; RN Reviewed Strip (Aida Mills RN) LaborFlag: Labor (QS system process) Datetime: 02/13/2016 13:48 NBP Sys/Dianne/Mean (mmHg): 104 (QS system process) : 57 (QS system process) : 74 (QS system process) Pulse: 83 (QS system process) LaborFlag: Labor (QS system process) Datetime: 02/13/2016 13:47 NBP Sys/Dianne/Mean (mmHg): 103 (QS system process) : 60 (QS system process) : 78 (QS system process) Pulse: 95 (QS system process) LaborFlag: Labor (QS system process) Datetime: 02/13/2016 13:46 NBP Sys/Dianne/Mean (mmHg): 123 (QS system process) : 61 (QS system process) : 87 (QS system process) Pulse: 83 (QS system process) Epidural Procedure Other: Pump Started (Aida Mills RN) Anesthesia Level Check: T10- Umbilicus (Aida Mills RN) LaborFlag: Labor (QS system process) Datetime: 02/13/2016 13:45 Stage of : Labor (Aida Mills, RN) Respirations: 20 (Aida Mills, RN) Monitor Mode: External (Aida Mills, RN) Monitor Interventions for UA: [place] Adjusted (Aida Mills, RN) Frequency (min): 1.5-2.5 (Aida Mills, RN) Quality: Moderate to Strong (Aida Mills, RN) Duration (sec): 60-80 (Aida Mills, RN) Resting Tone (Palpate): Relaxed (Aida Mills, RN) Monitor Mode: External US (Aida Mills, RN) Monitor Interventions for FHR: Ultrasound Adjusted (Aida Mills, RN) Comments: UTD - EFM MOVED FOR EPIDURAL (Aida Mills, RN) Pain Scale: 4 (Aida Mills, RN) Pain Presence: Intermittent (Aida Mills, RN) Pain Type: Contraction; Pressure (Aida Mills, RN) Pain Location: Abdomen; Perineum (Aida Mills, RN) Pain Relief Measures: Epidural Given; Comfort Measures (Aida Mills, RN) Pain Coping: Breathing Through Contractions (Aida Mills, RN) Pitocin (milliunit): Pitocin Remains (milliunits) @ 20 (Aida Mills, RN) Comfort Measures: Breathing/Relaxation; Coaching (Aida Mills, RN) Communication: RN at Bedside; RN Reviewed Strip; Provider at Bedside (Aida Mills, HAMMAD) LaborFlag: Labor (QS system process) Datetime: 02/13/2016 13:44 NBP Sys/Dianne/Mean (mmHg): 129 (QS system process) : 78 (QS system process) : 98 (QS system process) Pulse: 82 (QS system process) LaborFlag: Labor (QS system process) Datetime: 02/13/2016 13:43 NBP Sys/Dianne/Mean (mmHg): 133 (QS system process) : 80 (QS system process) : 99 (QS system process) Pulse: 75 (QS system process) Pulse: 92 (QS system process) SpO2 (%): 97 (QS system process) LaborFlag: Labor (QS system process) Datetime: 02/13/2016 13:42 NBP Sys/Dianne/Mean (mmHg): 117 (QS system process) : 73 (QS system process) : 90 (QS system process) Pulse: 86 (QS system process) Epidural Procedure: Loading Dose (Aida Mills, RN) LaborFlag: Labor (QS system process) Datetime: 02/13/2016 13:41 NBP Sys/Dianne/Mean (mmHg): 132 (QS system process) : 79 (QS system process) : 101 (QS system process) Pulse: 76 (QS system process) Epidural Procedure: Cath Placed (Aida Mills, RN) LaborFlag: Labor (QS system process) Datetime: 02/13/2016 13:40 Epidural Procedure: Test Dose (Aida Mills, RN) Datetime: 02/13/2016 13:38 Pulse: 85 (QS system process) SpO2 (%): 99 (QS system process) LaborFlag: Labor (QS system process) Datetime: 02/13/2016 13:37 Stage of : Labor (Aida Mills RN) Pain Scale: 4 (Aida Mills RN) Pain Presence: Intermittent (Aida Mills RN) Pain Type: Contraction (Aida Mills RN) Pain Location: Abdomen (Aida Mills RN) Pain Relief Measures: Comfort Measures (Aida Mills RN) Pain Coping: Breathing Through Contractions (Aida Mills RN) Comfort Measures: Breathing/Relaxation; Coaching; Family Support (Aida Mills RN) Procedure Type: EPIDURAL (Aida Mills RN) Procedure Verify: Correct Patient Identity; Accurate Procedure Consent Form; Agreement on Procedure to be Done; Correct Patient Position; Relevant Images and Results are Properly Labeled and Displayed (Aida Mills RN) Anesthesia Plans: Epidural (Aida Mills RN) Epidural Positioning: Sitting (Aida Mills RN) Anesthesia Comments: DR ARCHIBALD @ BS (Aida Mills RN) Communication: RN at Bedside; RN Reviewed Strip (Aida Mills RN) LaborFlag: Labor (QS system process) Datetime: 02/13/2016 13:33 NBP Sys/Dianne/Mean (mmHg): 134 (QS system process) : 79 (QS system process) : 101 (QS system process) Pulse: 95 (QS system process) Pulse: 98 (QS system process) SpO2 (%): 100 (QS system process) LaborFlag: Labor (QS system process) Datetime: 02/13/2016 13:30 Stage of : Labor (Aida Mills RN) Respirations: 20 (Aida Mills RN) Monitor Mode: External (Aida Mills RN) Monitor Interventions for UA: [place] Adjusted (Aida Mills RN) Frequency (min): 2-2.5 (Aida Mills RN) Quality: Moderate (Aida Mills RN) Duration (sec): 60-70 (Aida Mills RN) Resting Tone (Palpate): Relaxed (Aida Mills, HAMMAD) Monitor Mode: External US (Aida Mills RN) Monitor Interventions for FHR: Ultrasound Adjusted (Aida Mills RN) FHR Baseline Rate : 125 (Aida Mills RN) FHR Baseline Changes: No Baseline Change (Aida Mills RN) Variability: Moderate 6-25 bpm (Aida Mills, HAMMAD) Accelerations: 15X15 (Aida Mills, RN) Decelerations: None (Aida Mills RN) Pain Scale: 4 (Aida Mills, HAMMAD) Pain Presence: Intermittent (Aida Mills, HAMMAD) Pain Type: Contraction (Aida Mills, HAMMAD) Pain Location: Abdomen (Aida Mills, HAMMAD) Pain Relief Measures: Comfort Measures (Aida Mills RN) Pain Coping: Breathing Through Contractions (Aida Mills, HAMMAD) Pitocin (milliunit): Pitocin Remains (milliunits) @ 20 (Aida Mills, HAMMAD) Comfort Measures: Breathing/Relaxation; Coaching; Family Support (Aida Mills, HAMMAD) Epidural Positioning: Sitting (Aida Mills, HAMMAD) Communication: RN at Bedside; RN Reviewed Strip (Aida Mills, H[facility]M[place]) LaborFlag: Labor (QS system process) Datetime: 02/13/2016 13:28 Pulse: 97 (QS system process) SpO2 (%): 100 (QS system process) LaborFlag: Labor (QS system process) Datetime: 02/13/2016 13:24 Anesthesia Comments: DR ARCHIBALD NOTIFIED OF EPIDURAL REQUEST (Aida Mills RN) Datetime: 02/13/2016 13:15 Stage of : Labor (Aida Mills RN) Respirations: 20 (Aida Mills RN) Monitor Mode: External (Aida Mills RN) Frequency (min): 2-3 (Aida Mills RN) Quality: Moderate (Aida Mills RN) Duration (sec): 60-70 (Aida Mills RN) Resting Tone (Palpate): Relaxed (Aida Mills RN) Monitor Mode: External US (Aida Mills RN) FHR Baseline Rate : 125 (Aida Mills RN) FHR Baseline Changes: No Baseline Change (Aida Mills RN) Variability: Moderate 6-25 bpm (Aida Jess Roulund, RN) Accelerations: 15X15 (Aida Mills, RN) Decelerations: None (Aida Mills, RN) Pain Scale: 4 (Aida Mills, RN) Pain Presence: Intermittent (Aida Mills, RN) Pain Type: Contraction (Aida Mills, RN) Pain Location: Abdomen (Aida Mills, RN) Pain Relief Measures: Comfort Measures (Aida Mills, RN) Pain Coping: Breathing Through Contractions (Aida Mills, RN) Pitocin (milliunit): Pitocin Remains (milliunits) @ 20 (Aida Mills, RN) IV/Blood Work: New IV Bag Hung (Aida Mills, RN) Comfort Measures: Rocking Chair; Family Support (Aida Mills, RN) Procedure Type: EPIDURAL (Aida Mills, [place]) Procedure Verify: Correct Patient Identity; Agreement on Procedure to be Done (Aida Mills, [place]) Anesthesia Plans: Epidural (Aida Mills, [place]) Communication: RN at Bedside; RN Reviewed Strip (Aida Mills, RN) LaborFlag: Labor (QS system process) Datetime: 02/13/2016 13:04 NBP Sys/Dianne/Mean (mmHg): 124 (QS system process) : 85 (QS system process) : 101 (QS system process) Pulse: 92 (QS system process) LaborFlag: Labor (QS system process) Datetime: 02/13/2016 13:00 Stage of : Labor (Aida Mills RN) Respirations: 18 (Aida Mills RN) Monitor Mode: External (Aida Mills RN) Frequency (min): 1.5-2.5 (Aida Mills RN) Quality: Moderate (Aida Mills RN) Duration (sec): 60-90 (Aida Mills RN) Resting Tone (Palpate): Relaxed (Aida Mills RN) Monitor Mode: External US (Aida Mills RN) FHR Baseline Rate : 125 (Aida Mills RN) FHR Baseline Changes: No Baseline Change (Aida Mills RN) Variability: Moderate 6-25 bpm (Aida Mills RN) Accelerations: 15X15 (Aida Mills RN) Decelerations: None (Aida Mills RN) Pain Scale: 3 (Aida Mills RN) Pain Presence: Intermittent (Aida Mills RN) Pain Type: Contraction (Aida Mills RN) Pain Location: Abdomen (Aida Mills RN) Pain Relief Measures: Comfort Measures (Aida Mills RN) Pain Coping: Breathing Through Contractions (Aida Mills RN) Pitocin (milliunit): Pitocin Remains (milliunits) @ 20 (Aida Mills RN) Comfort Measures: Breathing/Relaxation; Rocking Chair; Family Support (Aida Mills RN) Communication: RN at Bedside; RN Reviewed Strip (Aida Mills RN) LaborFlag: Labor (QS system process) Datetime: 02/13/2016 12:45 Stage of : Labor (Aida Mills RN) Respirations: 20 (Aida Mills RN) Monitor Mode: External (Aida Mills RN) Frequency (min): 2.5-3 (Aida Mills RN) Quality: Moderate (Aida Mills RN) Duration (sec): 65-80 (Aida Mills RN) Resting Tone (Palpate): Relaxed (Aida Mills RN) Monitor Mode: External US (Aida Mills RN) FHR Baseline Rate : 130 (Aida Mills RN) FHR Baseline Changes: No Baseline Change (Aida Mills RN) Variability: Moderate 6-25 bpm (Aida Mills RN) Accelerations: 15X15 (Aida Mills RN) Decelerations: None (Aida Mills RN) Pain Scale: 3 (Aida Mills RN) Pain Presence: Intermittent (Aida Mills RN) Pain Type: Contraction (Aida Mills RN) Pain Location: Abdomen (Aida Mills RN) Pain Relief Measures: Comfort Measures (Aida Mills RN) Pain Coping: Breathing Through Contractions; Requesting Pain Medication or Epidural (Aida Mills RN) Pitocin (milliunit): Pitocin Remains (milliunits) @ 20 (Aida Mills [facility]) IV/Blood Work: IV Bolus Started (Aida Mills, RN) Comfort Measures: Breathing/Relaxation; Family Support (Aida Mills, RN) Procedure Type: EPIDURAL (Aida Mills, RN) Procedure Verify: Correct Patient Identity; Agreement on Procedure to be Done; Relevant Images and Results are Properly Labeled and Displayed (Aida Mills, RN) Anesthesia Plans: Epidural (Aida Mills, RN) Instructional Method: Verbal; Patient Instructed; Family/Support Person Instructed; Verbalized Understanding (Aida Mills, RN) Plan of Care: Plan of Care Discussed (Aida Mills, RN) Pain Management: Epidural; Comfort Measures (Aida Mills, RN) Communication: RN at Bedside; RN Reviewed Strip (Aida Mills RN) LaborFlag: Labor (QS system process) Datetime: 02/13/2016 12:39 NBP Sys/Dianne/Mean (mmHg): 119 (QS system process) : 64 (QS system process) : 87 (QS system process) Pulse: 82 (QS system process) LaborFlag: Labor (QS system process) Datetime: 02/13/2016 12:33 NBP Sys/Dianne/Mean (mmHg): 120 (QS system process) : 77 (QS system process) : 93 (QS system process) Pulse: 86 (QS system process) LaborFlag: Labor (QS system process) Datetime: 02/13/2016 12:30 Stage of : Labor (Aida Mills RN) Respirations: 18 (Aida Mills RN) Monitor Mode: External (Aida Mills RN) Frequency (min): 1.5-3 (Aida Mills RN) Quality: Moderate (Aida Mills RN) Duration (sec): 60-80 (Aida Mills RN) Resting Tone (Palpate): Relaxed (Aida Mills RN) Monitor Mode: External US (Aida Mills RN) FHR Baseline Rate : 130 (Aida Mills RN) FHR Baseline Changes: No Baseline Change (Aida Mills RN) Variability: Moderate 6-25 bpm (Aida Mills RN) Accelerations: 15X15 (Aida Mills RN) Decelerations: None (Aida Mills RN) Pain Scale: 2 (Aida Mills RN) Pain Presence: Intermittent (Aida Mills RN) Pain Type: Contraction (Aida Mills RN) Pain Location: Abdomen (Aida Mills, RN) Pain Relief Measures: Comfort Measures (Aida Mills, RN) Pain Coping: Breathing Through Contractions (Aida Mills, RN) Pitocin (milliunit): Pitocin Remains (milliunits) @ 20 (Aida Mills, RN) IV/Blood Work: IV Infusing per Order (Aida Mills, RN) Patient Position/Activity: Right Tilt; High Fowlers (Aida Mills, RN) Comfort Measures: Breathing/Relaxation; Family Support (Aida Mills, [place]) Communication: RN at Bedside; RN Reviewed Strip (Aida Mills, [place]) LaborFlag: Labor (QS system process) Datetime: 02/13/2016 12:15 Stage of : Labor (Aida Mills RN) Respirations: 18 (Aida Mills RN) Monitor Mode: External (Aida Mills RN) Frequency (min): 2-4 (Aida Mills RN) Quality: Mild/Moderate (Aida Mills RN) Duration (sec): 60-80 (Aida Mills, RN) Resting Tone (Palpate): Relaxed (Aida Mills, [place]) Monitor Mode: External US (Aida Mills RN) FHR Baseline Rate : 125 (Aida Mills RN) FHR Baseline Changes: No Baseline Change (Aida Mills RN) Variability: Moderate 6-25 bpm (Aida Mills RN) Accelerations: 15X15 (Aida Mills RN) Decelerations: None (Aida Mills RN) Pain Scale: 1 (Aida Mills RN) Pain Presence: Intermittent (Aida Mills RN) Pain Type: Contraction (Aida Mills RN) Pain Location: Abdomen (Aida Mills, RN) Pain Relief Measures: Comfort Measures (Aida Mills RN) Pain Coping: Talking Through Contractions (Aida Mills RN) Pitocin (milliunit): Pitocin Remains (milliunits) @ 20 (Aida Mills, RN) IV/Blood Work: IV Infusing per Order (Aida Mills, [place]) Patient Position/Activity: Right Tilt; High Fowlers (Aida Mills, [place]) Comfort Measures: Family Support (Aida Mills, [place]) Communication: RN at Bedside; RN Reviewed Strip (Aida Mills RN) LaborFlag: Labor (QS system process) Datetime: 02/13/2016 12:03 NBP Sys/Dianne/Mean (mmHg): 120 (QS system process) : 75 (QS system process) : 92 (QS system process) Pulse: 82 (QS system process) LaborFlag: Labor (QS system process) Datetime: 02/13/2016 12:00 Stage of : Labor (Aida Mills RN) Respirations: 18 (Aida Mills RN) Temperature (F): 97.6 (Aida Mills RN) Temperature (C): 36.4 (QS system process) Monitor Mode: External (Aida Mills RN) Monitor Interventions for UA: [place] Adjusted (Aida Mills RN) Frequency (min): 1.5-5 (Aida Mills RN) Quality: Mild/Moderate (Aida Mills RN) Duration (sec): 60-80 (Aida Mills RN) Resting Tone (Palpate): Relaxed (Aida Mills RN) Monitor Mode: External US (Aida Mills RN) Monitor Interventions for FHR: Ultrasound Adjusted (Aida Mills RN) FHR Baseline Rate : 135 (Aida Mills RN) FHR Baseline Changes: No Baseline Change (Aida Mills RN) Variability: Moderate 6-25 bpm (Aida Mills RN) Accelerations: 15X15 (Aida Mills RN) Decelerations: None (Aida Mills RN) Pain Scale: 1 (Aida Mills RN) Pain Presence: Intermittent (Aida Mills RN) Pain Type: Contraction (Aida Mills RN) Pain Location: Abdomen (Aida Mills RN) Pain Relief Measures: Comfort Measures (Aida Mills RN) Pain Coping: Talking Through Contractions (Aida Mills RN) Dilatation (cm): 4.0 (Aida Mills RN) Effacement (%): 60 (Aida Mills RN) Station: -1 (Aida Mills RN) Exam by: Blanca EASON CNM (Aida Mills, RN) Membrane Status: Ruptured (Aida Mills RN) Membranes Rupture Method: Artificial (Aida Mills RN) Amniotic Fluid Color: Clear (Aida Mills, [place]) Amniotic Fluid Amount: Moderate (Aida Mills, [place]) Amniotic Fluid Odor: None (Aida Mills RN) Vaginal Bleeding: None (Aida Mills RN) Cervix, Consistency: Soft (Aida Mills RN) Cervix, Position: Posterior (Aida Mills, [place]) Pitocin (milliunit): Pitocin Remains (milliunits) @ 20 (Aida Mills, [place]) IV/Blood Work: IV Infusing per Order (Aida Mills, [place]) Patient Position/Activity: Right Tilt; High Fowlers (Aida Mills, [place]) Comfort Measures: Family Support (Aida Mills, [place]) Hygiene: Underpad Changed (Aida Mills, [place]) Provider Reviewed Strip: Yes (Aida Mills, [place]) Communication: RN at Bedside; RN Reviewed Strip; Provider at Bedside (Aida Mills, [place]) LaborFlag: Labor (QS system process)
[2016-02-13] MEDS ORDERED: CEFAZOLIN INJ 1 GM VIAL ONE (17:08)
[2016-02-13] MEDS ORDERED: ONDANSETRON HCL INJ/PF 4 MG/2 ML SDV ONE ×2 (17:14→19:39)
[2016-02-13] MEDS ORDERED: BENZOCAINE/MENTHOL AEROSOL SPRAY 56 ML ONE (17:39)
[2016-02-13] MEDS ORDERED: DIBUCAINE 1% OINTMENT 28 GM TP PRN (18:13)
[2016-02-13] MEDS ORDERED: MAGNESIUM HYDROXIDE SUSP 30 ML UDCUP PO PRN (18:13)
[2016-02-13] MEDS ORDERED: PROMETHAZINE HCL 25 MG TABLET PO PRN (18:13)
[2016-02-13] MEDS ORDERED: MEASLES,MUMPS&RUBELLA VACC/PF 0.5 ML VIAL SUBCUT PRN (18:13)
[2016-02-13] MEDS ORDERED: PROMETHAZINE HCL 25 MG SUPP.RECT PR PRN (18:13)
[2016-02-13] MEDS ORDERED: NA PHOS,M-B/NA PHOS,DI-BA (ADULT) 133 ML ENEMA PR PRN (18:13)
[2016-02-13] MEDS ORDERED: GLYCERIN/WITCH HAZEL LEAF 1 EACH MED..PAD TP PRN (18:13)
[2016-02-13] MEDS ORDERED: DIPH/PERTUSS(ACELL)/TETANUS VAC/PF 0.5 ML SYR (>=10YO) IM PRN (18:13)
[2016-02-13] MEDS ORDERED: PROMETHAZINE HCL INJ 25 MG/1 ML VIAL IV PRN (18:13)
[2016-02-13] MEDS ORDERED: ACETAMINOPHEN 650 MG SUPP.RECT PR PRN (18:13)
[2016-02-13] MEDS ORDERED: BENZOCAINE/MENTHOL AEROSOL SPRAY 56 ML TOP PRN (18:13)
[2016-02-13] MEDS ORDERED: ZOLPIDEM TARTRATE 5 MG TABLET PO PRN (18:13)
[2016-02-13] MEDS ORDERED: PSEUDOEPHEDRINE HCL 30 MG TABLET PO PRN (18:13)
[2016-02-13] MEDS ORDERED: DIPHENHYDRAMINE HCL 25 MG CAPSULE PO PRN (18:13)
[2016-02-13] MEDS ORDERED: ACETAMINOPHEN WITH CODEINE #3 TABLET PO PRN (18:13)
[2016-02-13] MEDS ORDERED: CEFAZOLIN 2 GM/D5W RTU 2 GM/50 ML RTUPB IV ONE (19:00)
[2016-02-13] MEDS ORDERED: ONDANSETRON HCL INJ/PF 4 MG/2 ML SDV IV PRN (19:24)
[2016-02-13] MEDS ORDERED: ACETAMINOPHEN WITH CODEINE #3 TABLET ONE (19:39)
[2016-02-13] MEDS ORDERED: IBUPROFEN 800 MG TABLET ONE (19:39)
[2016-02-13] MEDS: ACETAMINOPHEN WITH CODEINE #3 TABLET PO PRN (19:45)
[2016-02-13] MEDS ORDERED: ONDANSETRON HCL INJ/PF 4 MG/2 ML SDV IV ONE (20:00)
--- NOTE | 2016-02-13 20:01 | L&D Flow Sheet ---
LD Flowsheet Datetime Report Generated by CPN: 02/13/2016 20:00 Datetime: 02/13/2016 19:57 NBP Sys/Dianne/Mean (mmHg): 104 (QS system process) : 56 (QS system process) : 74 (QS system process) Pulse: 75 (QS system process) Datetime: 02/13/2016 19:56 Pulse: 78 (QS system process) SpO2 (%): 97 (QS system process) Datetime: 02/13/2016 19:43 NBP Sys/Dianne/Mean (mmHg): 99 (QS system process) : 60 (QS system process) : 73 (QS system process) Pulse: 122 (QS system process) Datetime: 02/13/2016 19:38 NBP Sys/Dianne/Mean (mmHg): 96 (QS system process) : 51 (QS system process) : 66 (QS system process) Pulse: 125 (QS system process) Datetime: 02/13/2016 19:33 NBP Sys/Dianne/Mean (mmHg): 100 (QS system process) : 55 (QS system process) : 72 (QS system process) Pulse: 116 (QS system process) Datetime: 02/13/2016 19:28 NBP Sys/Dianne/Mean (mmHg): 102 (QS system process) : 59 (QS system process) : 76 (QS system process) Pulse: 116 (QS system process) Datetime: 02/13/2016 19:23 NBP Sys/Dianne/Mean (mmHg): 96 (QS system process) : 52 (QS system process) : 67 (QS system process) Pulse: 120 (QS system process) Datetime: 02/13/2016 19:18 NBP Sys/Dianne/Mean (mmHg): 96 (QS system process) : 53 (QS system process) : 71 (QS system process) Pulse: 134 (QS system process) Datetime: 02/13/2016 19:13 NBP Sys/Dianne/Mean (mmHg): 97 (QS system process) : 54 (QS system process) : 69 (QS system process) Pulse: 122 (QS system process) Datetime: 02/13/2016 19:08 NBP Sys/Dianne/Mean (mmHg): 97 (QS system process) : 51 (QS system process) : 72 (QS system process) Pulse: 127 (QS system process) Datetime: 02/13/2016 19:03 Stage of : Recovery (Aida Mills RN) NBP Sys/Dianne/Mean (mmHg): 96 (QS system process) : 53 (QS system process) : 69 (QS system process) Pulse: 122 (QS system process) Respirations: 18 (Aida Mills RN) Pain Scale: 1 (Aida Mills RN) Pain Presence: Constant (Aida Mills RN) Pain Type: Burning; Dull (Aida Mills RN) Pain Location: Perineum (Aida Mills RN) Pain Relief Measures: Comfort Measures (Aida Mills RN) Datetime: 02/13/2016 18:58 NBP Sys/Dianne/Mean (mmHg): 89 (QS system process) : 53 (QS system process) : 66 (QS system process) Pulse: 133 (QS system process) Datetime: 02/13/2016 18:53 NBP Sys/Dianne/Mean (mmHg): 87 (QS system process) : 49 (QS system process) : 62 (QS system process) Pulse: 139 (QS system process) Datetime: 02/13/2016 18:48 NBP Sys/Dianne/Mean (mmHg): 89 (QS system process) : 52 (QS system process) : 67 (QS system process) Pulse: 134 (QS system process) Datetime: 02/13/2016 18:43 NBP Sys/Dianne/Mean (mmHg): 97 (QS system process) : 55 (QS system process) : 72 (QS system process) Pulse: 120 (QS system process) Datetime: 02/13/2016 18:38 NBP Sys/Dianne/Mean (mmHg): 114 (QS system process) : 55 (QS system process) : 77 (QS system process) Pulse: 134 (QS system process) Datetime: 02/13/2016 18:33 Stage of : Recovery (Aida Mills RN) NBP Sys/Dianne/Mean (mmHg): 105 (QS system process) : 53 (QS system process) : 76 (QS system process) Pulse: 129 (QS system process) Respirations: 18 (Aida Mills RN) Temperature (F): 98.4 (Aida Mills RN) Temperature (C): 36.9 (QS system process) Temperature Route: Oral (Aida Mills RN) Pain Scale: 1 (Aida Mills RN) Pain Presence: Constant (Aida Mills RN) Pain Type: Burning; Dull (Aida Mills RN) Pain Location: Perineum (Aida Mills RN) Pain Relief Measures: Comfort Measures (Aida Mills RN) Datetime: 02/13/2016 18:28 NBP Sys/Dianne/Mean (mmHg): 107 (QS system process) : 56 (QS system process) : 76 (QS system process) Pulse: 121 (QS system process) Datetime: 02/13/2016 18:23 NBP Sys/Dianne/Mean (mmHg): 104 (QS system process) : 54 (QS system process) : 77 (QS system process) Pulse: 125 (QS system process) Datetime: 02/13/2016 18:18 Stage of : Recovery (Aida Mills RN) NBP Sys/Dianne/Mean (mmHg): 113 (QS system process) : 59 (QS system process) : 82 (QS system process) Pulse: 114 (QS system process) Respirations: 18 (Aida Mills RN) Pain Scale: 2 (Aida Mills RN) Pain Presence: Constant (Aida Mills RN) Pain Type: Burning; Dull (Aida Mills RN) Pain Location: Perineum (Aida Mills RN) Pain Relief Measures: Comfort Measures (Aida Mills RN) Datetime: 02/13/2016 18:13 Stage of : Recovery (Aida Mills RN) NBP Sys/Dianne/Mean (mmHg): 105 (QS system process) : 59 (QS system process) : 77 (QS system process) Pulse: 120 (QS system process) Datetime: 02/13/2016 18:08 NBP Sys/Dianne/Mean (mmHg): 102 (QS system process) : 57 (QS system process) : 71 (QS system process) Pulse: 105 (QS system process) Datetime: 02/13/2016 18:03 Stage of : Recovery (Aida Mills RN) NBP Sys/Dianne/Mean (mmHg): 97 (QS system process) : 53 (QS system process) : 70 (QS system process) Pulse: 102 (QS system process) Respirations: 20 (Aida Mills RN) Pain Scale: 2 (Aida Mills RN) Pain Presence: Constant (Aida Mills RN) Pain Type: Burning; Dull (Aida Mills RN) Pain Location: Perineum (Aida Mills RN) Pain Relief Measures: Comfort Measures (Aida Mills RN) Datetime: 02/13/2016 17:58 NBP Sys/Dianne/Mean (mmHg): 102 (QS system process) : 54 (QS system process) : 76 (QS system process) Pulse: 112 (QS system process) Datetime: 02/13/2016 17:53 NBP Sys/Dianne/Mean (mmHg): 100 (QS system process) : 55 (QS system process) : 72 (QS system process) Pulse: 122 (QS system process) Datetime: 02/13/2016 17:51 Stage of : Recovery (Aida Mills RN) NBP Sys/Dianne/Mean (mmHg): 101 (QS system process) : 54 (QS system process) : 72 (QS system process) Pulse: 95 (QS system process) Respirations: 20 (Aida Mills RN) Pain Scale: 2 (Aida Mills RN) Pain Presence: Constant (Aida Mills RN) Pain Type: Burning; Dull (Aida Mills RN) Pain Location: Perineum (Aida Mills RN) Datetime: 02/13/2016 17:39 Stage of : Recovery (Aida Mills, RN) Datetime: 02/13/2016 17:38 NBP Sys/Dianne/Mean (mmHg): 110 (QS system process) : 54 (QS system process) : 78 (QS system process) Pulse: 93 (QS system process) Pulse: 98 (QS system process) SpO2 (%): 98 (QS system process) Datetime: 02/13/2016 17:33 NBP Sys/Dianne/Mean (mmHg): 143 (QS system process) : 66 (QS system process) : 92 (QS system process) Pulse: 103 (QS system process) Pulse: 111 (QS system process) SpO2 (%): 96 (QS system process) Datetime: 02/13/2016 17:30 Stage of : Recovery (Aida Mills RN) Respirations: 20 (Aida Mills RN) Pain Scale: 3 (Aida Mills RN) Pain Presence: Constant (Aida Mills RN) Pain Type: Burning; Sharp (Aida Mills RN) Pain Location: Perineum (Aida Mills RN) Pain Goal: 1 (Aida Mills RN) Pain Relief Measures: Comfort Measures (Aida Mills RN) Datetime: 02/13/2016 17:28 NBP Sys/Dianne/Mean (mmHg): 99 (QS system process) : 53 (QS system process) : 74 (QS system process) Pulse: 109 (QS system process) Pulse: 100 (QS system process) SpO2 (%): 97 (QS system process) Datetime: 02/13/2016 17:23 NBP Sys/Dianne/Mean (mmHg): 102 (QS system process) : 53 (QS system process) : 76 (QS system process) Pulse: 109 (QS system process) SpO2 (%): 94 (QS system process) Datetime: 02/13/2016 17:18 NBP Sys/Dianne/Mean (mmHg): 114 (QS system process) : 57 (QS system process) : 79 (QS system process) Pulse: 121 (QS system process) Pulse: 110 (QS system process) SpO2 (%): 98 (QS system process) Datetime: 02/13/2016 17:14 Stage of : Recovery (Kamala Vitrano, RN) Datetime: 02/13/2016 17:13 Pulse: 108 (QS system process) SpO2 (%): 97 (QS system process) Datetime: 02/13/2016 17:08 Stage of : Recovery (Aida Mills RN) Pulse: 132 (QS system process) SpO2 (%): 100 (QS system process) Pain Scale: 5 (Aida Mills RN) Pain Presence: Constant (Aida Mills RN) Pain Type: Burning; Sharp (Aida Mills RN) Pain Location: Perineum (Aida Mills RN) Pain Goal: 1 (Aida Mills RN) Pain Relief Measures: Comfort Measures (Aida Mills RN) Datetime: 02/13/2016 17:05 NBP Sys/Dianne/Mean (mmHg): 112 (QS system process) : 56 (QS system process) : 77 (QS system process) Pulse: 113 (QS system process) Datetime: 02/13/2016 17:03 Stage of : Recovery (Kamala Johnson RN) Pulse: 145 (QS system process) SpO2 (%): 100 (QS system process) Patient Care Comments: Spontaneous delivery of placenta. Pitocin 20 units in 1000 mL NS bolusing. Provider completing FR. (Kamala Johnson RN) Datetime: 02/13/2016 17:00 Pulse: 108 (QS system process) SpO2 (%): 87 (QS system process) Datetime: 02/13/2016 16:58 Stage of : Recovery (Kamala Johnson RN) NBP Sys/Dianne/Mean (mmHg): 108 (QS system process) : 62 (QS system process) : 69 (QS system process) Pulse: 97 (QS system process) Pulse: 118 (QS system process) SpO2 (%): 100 (QS system process) Datetime: 02/13/2016 16:55 Stage of : Labor (Aida Mills RN) Respirations: 24 (Aida Mills RN) Monitor Mode: Palpation (Aida Mills RN) Frequency (min): 2-3 (Aida Mills RN) Quality: Moderate to Strong (Aida Mills RN) Resting Tone (Palpate): Relaxed (Aida Mills RN) Monitor Mode: External US (Aida Mills RN) Monitor Interventions for FHR: Ultrasound Adjusted (Aida Mills RN) Accelerations: None (Aida Mills RN) Decelerations: Variable (Aida Mills RN) Comments: UTD BASELINE (Aida Mills, HAMMAD) Pain Scale: 5 (Aida Mills, RN) Pain Presence: Constant (Aida Mills, HAMMAD) Pain Type: Burning; Pressure (Aida Mills, RN) Pain Location: Perineum (Aida Mills, RN) Pain Relief Measures: Comfort Measures (Aida Mills, RN) Pain Coping: Crying (Aida Mills, HAMMAD) Pitocin (milliunit): Pitocin Remains (milliunits) @ 20 (Aida Mills, RN) IV/Blood Work: IV Infusing per Order (Aida Mills, RN) Comfort Measures: Coaching; Family Support (Aida Mills, HAMMAD) Provider Reviewed Strip: Yes (Aida Mills, HAMMAD) Pushing: Coached on Pushing; Urge to Push (Aida Mills, HAMMAD) Pushing Position: Pushing with Contractions; Pushing Lithotomy (Aida Mills, HAMMAD) Pushing Progress: Descent with Pushing; Perineal Bulging; Rectal Bulging; with Pushing; Pushing Effectively with Contractions (Aida Mills, HAMMAD) Stage 2 Comments: OF VIABLE MALE @ 1655, APGARS 8/9. SEE DELIVERY SUMMARY. (Aida Mills, HAMMAD) Communication: RN at Bedside; RN Reviewed Strip; Provider at Bedside (Aida Mills, HAMMAD) LaborFlag: Labor (QS system process) Datetime: 02/13/2016 16:48 Patient Care Comments: Pt feeling faint; cold pack provided, Ammonia per CNM; pt stable (Kamala Johnson RN) Datetime: 02/13/2016 16:47 NBP Sys/Dianne/Mean (mmHg): 140 (QS system process) : 61 (QS system process) : 88 (QS system process) Pulse: 131 (QS system process) LaborFlag: Labor (QS system process) Datetime: 02/13/2016 16:45 Stage of : Labor (Aida Mills RN) NBP Sys/Dianne/Mean (mmHg): 142 (QS system process) : 63 (QS system process) : 91 (QS system process) Pulse: 112 (QS system process) Respirations: 24 (Aida Mills RN) Monitor Mode: Palpation (Aida Mills RN) Frequency (min): 3-3.5 (Aida Mills RN) Quality: Moderate to Strong (Aida Mills RN) Resting Tone (Palpate): Relaxed (Aida Jess Roulund, RN) Monitor Mode: External US (Aida Mills, RN) FHR Baseline Rate : 135 (Aida Mills, RN) FHR Baseline Changes: No Baseline Change (Aida Mills RN) Variability: Minimal - Undetectable to <=5 bpm (Aida Mills, H[facility]) Accelerations: None (Aida Mills, RN) Decelerations: Variable (Aida Mills RN) Pain Scale: 5 (Aida Mills, RN) Pain Presence: Constant (Aida Mills, RN) Pain Type: Burning; Pressure (Aida Mills, RN) Pain Location: Perineum (Aida Mills, RN) Pain Relief Measures: Comfort Measures (Aida Mills, HAMMAD) Pitocin (milliunit): Pitocin Remains (milliunits) @ 18 (Aida Mills, RN) IV/Blood Work: IV Infusing per Order (Aida Mills, RN) Comfort Measures: Coaching; Family Support (Aida Mills, RN) Provider Reviewed Strip: Yes (Aida Mills, RN) Communication: RN at Bedside; RN Reviewed Strip; Provider at Bedside (Aida Mills, RN) LaborFlag: Labor (QS system process) Datetime: 02/13/2016 16:38 Pushing Progress: Presenting Part Visible (Kamala Johnson RN) Stage 2 Comments: Nursery nurse at bedside for delivery (Kamala Johnson RN) Datetime: 02/13/2016 16:30 NBP Sys/Dianne/Mean (mmHg): 110 (QS system process) : 54 (QS system process) : 78 (QS system process) Pulse: 86 (QS system process) Respirations: 22 (Aida Mills RN) Monitor Mode: Palpation (Aida Mills RN) Frequency (min): 2-3 (Aida Mills RN) Quality: Moderate to Strong (Aida Mills RN) Resting Tone (Palpate): Relaxed (Aida Mills RN) Monitor Mode: External US (Aida Mills RN) FHR Baseline Rate : 135 (Aida Mills RN) FHR Baseline Changes: No Baseline Change (Aida Mills RN) Variability: Minimal - Undetectable to <=5 bpm (Aida Mills, [place]) Accelerations: None (Aida Mills, [place]) Decelerations: Variable (Aida Mills RN) Pain Scale: 5 (Aida Mills RN) Pain Presence: Constant (Aida Mills, H[place]) Pain Type: Pressure (Aida Mills RN) Pain Location: Perineum (Aida Mills, [place]) Pain Relief Measures: Comfort Measures (Aida Mills RN) Pitocin (milliunit): Pitocin Remains (milliunits) @ 18 (Aida Mills, H[facility]) IV/Blood Work: IV Infusing per Order (Aida Mills, H[facility]) Comfort Measures: Coaching; Family Support (Aida Mills RN) Provider Reviewed Strip: Yes (Aida Mills RN) Communication: RN at Bedside; RN Reviewed Strip; Provider at Bedside (Aida Mills RN) Communication Comments: CNM REMAINS @ BS (Aida Mills RN) LaborFlag: Labor (QS system process) Datetime: 02/13/2016 16:26 Pitocin (milliunit): Pitocin Increased to (milliunits) @ 18 (Aida Mills RN) Datetime: 02/13/2016 16:20 Temperature (F): 99.1 (Aida Mills RN) Temperature (C): 37.3 (QS system process) LaborFlag: Labor (QS system process) Datetime: 02/13/2016 16:15 Stage of : Labor (Aida Mills RN) Respirations: 20 (Aida Mills, [place]) Monitor Mode: External (Aida Mills RN) Frequency (min): 2.5-3 (Aida Mills, [place]) Quality: Moderate to Strong (Aida Mills RN) Resting Tone (Palpate): Relaxed (Aida Mills, [place]) Monitor Mode: External US (Aida Mills RN) FHR Baseline Rate : 135 (Aida Mills RN) FHR Baseline Changes: No Baseline Change (Aida Mills RN) Variability: Minimal - Undetectable to <=5 bpm (Aida Mills RN) Accelerations: None (Aida Mills, H[facility]M[place]) Decelerations: Variable (Aida Mills RN) Pain Scale: 5 (Aida Mills, [place]) Pain Presence: Constant (Aida Mills RN) Pain Type: Pressure (Aida Mills, [place]) Pain Location: Perineum (Aida Mills, [place]) Pain Relief Measures: Comfort Measures (Aida Mills RN) Pitocin (milliunit): Pitocin Remains (milliunits) @ 16 (Aida Mills, RN) IV/Blood Work: IV Infusing per Order (Aida Mills, RN) Patient Position/Activity: Left Tilt (Aida Mills, RN) Comfort Measures: Coaching; Family Support (Aida Mills, H[facility]M[place]) Provider Reviewed Strip: Yes (Aida Mills, RN) Communication: RN at Bedside; RN Reviewed Strip; Provider at Bedside (Aida Mills, RN) Communication Comments: CNM REMAINS @ BS (Aida Mills, H[facility]M[place]) LaborFlag: Labor (QS system process) Datetime: 02/13/2016 16:13 Actions for Decelerations: Oxygen Applied (Aida Mills, RN) Oxygen Method: Non-Rebreather (Aida Mills, RN) Patient Position/Activity: Right Tilt (Aida Mills, RN) Datetime: 02/13/2016 16:10 Pitocin (milliunit): Pitocin Increased to (milliunits) @ 16 (Aida Mills, RN) Datetime: 02/13/2016 16:00 Stage of : Labor (Aida Mills RN) NBP Sys/Dianne/Mean (mmHg): 135 (QS system process) : 60 (QS system process) : 87 (QS system process) Pulse: 125 (QS system process) Respirations: 20 (Aida Mills RN) Monitor Mode: External (Aida Mills RN) Frequency (min): 2-3 (Aida Mills RN) Quality: Moderate to Strong (Aida Mills RN) Duration (sec): 55-65 (Aida Mills RN) Resting Tone (Palpate): Relaxed (Aida Mills RN) Monitor Mode: External US (Aida Mills RN) FHR Baseline Changes: No Baseline Change (Aida Mills RN) Variability: Moderate 6-25 bpm (Aida Mills RN) Accelerations: None (Aida Mills RN) Decelerations: Early; Variable (Aida Mills RN) Pain Scale: 5 (Aida Mills RN) Pain Presence: Intermittent (Aida Mills RN) Pain Type: Pressure (Aida Mills RN) Pain Location: Perineum (Aida Mills, [place]) Pain Relief Measures: Comfort Measures (Aida Mills RN) Pitocin (milliunit): Pitocin Remains (milliunits) @ 14 (Aida Mills, [place]) IV/Blood Work: IV Infusing per Order (Aida Mills, [place]) Comfort Measures: Coaching; Family Support (Aida Mills, [place]) Provider Reviewed Strip: Yes (Aida Mills RN) Instructional Method: Verbal; Patient Instructed; Family/Support Person Instructed; Verbalized Understanding (Aida Mills RN) Labor/Induction: Pushing Methods (Aida Mills RN) Pushing: Coached on Pushing (Aida Mills RN) Pushing Position: Pushing Lithotomy (Aida Mills, HAMM[place]) Pushing Progress: Descent with Pushing; Presenting Part Visible; Pushing Effectively with Contractions (Aida Mills, RN) Communication: RN at Bedside; RN Reviewed Strip; Provider at Bedside (Aida Mills, H[facility]M[place]) Communication Comments: CNM REMAINS @ BS (Aida Mills, HAMMAD) LaborFlag: Labor (QS system process)
--- NOTE | 2016-02-13 20:15 | Admission Physical ---
Datetime Report Generated by CPN: 02/13/2016 20:15 CURRENT ADMISSION Hx Assessment: The History has been Reviewed and is Current Chief Complaint: Scheduled Induction of Labor Indication for Induction: Postterm Admit Plan: Admit to Unit; Initiate Labor Induction Protocol ALLERGIES Medication Allergies: No Medication Allergies: No Known Drug Allergies (02/13/2016) Food Allergies: NONE Environmental Allergies: NONE OBSTETRICAL HISTORY EDC: 02/07/2016 00:00 : 4 Para: 2 Term: 2 : 0 SAB: 1 IAB: 0 Ectopic: 0 Livin Cesareans: 0 VBACs: 0 Multiple Births: 0 Gestational Diabetes: No Rh Sensitization: No Incompetent Cervix: No SAUL: No Infertility: No ART Treatment: No Uterine Anomaly: No IUGR: No Hx Previous C/S: No Macrosomia: No Hx Loss/Stillborn: No PIH: No Hx : No Placenta Previa/Abruption: No Depression/PP Depression: No PTL/PROM: No Post Hemorrhage: No Current Procedures: Ultrasound SEE RECORDS Alcohol: No Marijuana : No Cocaine: No Other Illicit Drugs: No Cigarettes: Never Smoker. [id number] MEDICAL HISTORY Diabetes: No Blood Transfusion: No Pulmonary Disease (Asthma, TB): No Breast Disease: No Hypertension: No [employer] Surgery: No Heart Disease: No Hosp/Surgery: Yes Autoimmune Disorder: No Anesthetic Complications: No Kidney Disease: No Abnormal Pap Smear: No Neuro/Epilepsy: No Psychiatric Disorders: No Other Medical Diseases: No Hepatitis/Liver Disease: No Significant Family History: No Varicosities/Phlebitis: No Trauma/Violence : No Thyroid Dysfunction: No INFECTIOUS HISTORY Gonorrhea: No Genital Herpes: No Chlamydia: No Tuberculosis: No Syphilis: No Hepatitis: No HIV/AIDS Exposure: No Rash or Viral Illness: No HPV: No PHYSICAL EXAM General: Normal HEENT: Normal Neurologic: Normal Thyroid: Normal Heart: Normal Lungs: Normal Breast: Normal Back: Normal Abdomen: Normal Genitourinary Exam: Normal Extremities: Normal DTRs: Normal Pelvic Type: Adequate Vital Signs: Reviewed; Within Normal Limits VAGINAL EXAM Dilatation: 4 Effacement: 60 Station: -1 Contraction Comments: q 2-4 min MEMBRANES Membranes: Ruptured Amniotic Fluid Color: Clear FETUS A EGA: 40.6 Monitoring: External US FHR- Baseline: 135 Variability: Moderate 6-25bpm Accelerations: 15X15 Decelerations: None Presentation: Vertex Admit Comment: 31yo at 40+6wga admitted earlier this AM for IOL. Pt. is Opos, RI, GBS neg. complications include bilateral renal dilation. No other significant hx. Pelvis proven to 9lbs 5 oz. Plan is to continue pitocin then AROM and epidural for pain control. Pt. and asked questions and verbalized understanding. Agree with plan of care. PLANS FOR LABOR AND DELIVERY Labor and Delivery: None Pain Management: Epidural Feeding Preference: Breast Benefit of Breast Feed Discussed: Yes Circumcision: Yes INFORMED CONSENT Informed Consent Obtained: Vaginal Delivery; Vacuum/Forceps Assist; Risks, Benefits and Alternatives Discussed Assignment: Harmony Cardona MD Signature: with User ID: [email or web address] : with User ID: [email or web address]
--- NOTE | 2016-02-13 21:15 | Delivery Summary ---
Del Sum A-C Datetime Report Generated by CPN: 02/13/2016 21:15 ADMISSION DATA Chief Complaint: Scheduled Induction of Labor Indication for Induction: Postterm Admission Impression: Term, Intrauterine Admit Provider Comments: 31yo at 40+6wga admitted earlier this AM for IOL. Pt. is Opos, RI, GBS neg. complications include bilateral renal dilation. No other significant hx. Pelvis proven to 9lbs 5 oz. Plan is to continue pitocin then AROM and epidural for pain control. Pt. and asked questions and verbalized understanding. Agree with plan of care. DELIVERY PERSONNEL Delivery Doctor:: Blanca EASON CNM Labor and Delivery Nurse:: Aida Mills RN Labor and Delivery Nurse:: Kamala Johnson RN Nursery Nurse:: Misty Villalobos RN Video Technician/CANDY WRAPPING MACHINE OPERATOR: Michelle An CNA II MATERNAL INFORMATION Delivery Anesthesia: Epidural Medications After Delivery: Pitocin Bolus-Please Comment; Pitocin Drip 20 Units/1000ml NSS Estimated Blood Loss (ml): 300 Maternal Complications: None Provider Comments: pt. progressed to c/c/+2 with urge to push. Pushed well but baby remained in OP presentation. After trying different positions baby rotated and delivered in straight OA position. Vigorous resp. effort and cry with tactile stimulation. Cord clamped x2 and cut by FOB. Baby to maternal abdomen. Large blood clot noted attached to cord noted. Placenta delivered spontaneously intact (3vc noted, large placenta with extra lobe-sent to pathology for eval). Large bleeding continued and clots noted at cervical os. Vaginal sweep performed and several large clots obtained with small amount of membranes, fundus firm @ u-1, bleeding small. Vaginal and perineal inspection revealed edematous tissue with superficial and ML laceration repaired as stated above. Mother and baby remain in room and Stable. LABOR SUMMARY EDC: 02/07/2016 00:00 No. Babies in Womb: 1 Attempted: No Labor Anesthesia: Epidural LABOR INFORMATION Reason for Induction: Post Dates Onset of Labor: 02/13/2016 12:00 Complete Dilatation: 02/13/2016 15:50 Oxytocin: Induction Group B Beta Strep: Negative Antibiotics # of Doses: 0 Steroids Given: None Reason Steroids Not Administered: Not Applicable MEMBRANES Membranes Rupture Method: Artificial Rupture of Membranes: 02/13/2016 12:00 Length of Rupture (hr): 4.92 Amniotic Fluid Color: Clear Amniotic Fluid Amount: Moderate Amniotic Fluid Odor: None STAGES OF LABOR Stage 1 hr: 3 Stage 1 min: 50 Stage 2 hr: 1 Stage 2 min: 5 Stage 3 hr: 0 Stage 3 min: 8 Total Time in Labor hr: 5 Total Time in Labor min: 3 VAGINAL DELIVERY Episiotomy: None Laceration Extension: First Degree Laceration Type: Perineal Other Laceration: LT MEDIOLATERAL LAC Laceration Repair: Yes Laceration Repair Note: edematous vaginal tissue with superficial mediolateral tear that was repaired with 2-0 chromic. Sponge Count Correct: N/A Sharps Count Correct: N/A CSECTION DELIVERY Primary Indication: N/A Secondary Indication: N/A BABY A INFORMATION Delivery Date/Time: 02/13/2016 16:55 Method of Delivery: Vaginal Born in Route : No : N/A Forceps: N/A Vacuum Extraction: N/A Shoulder Dystocia : No PRESENTATION/POSITION BABY A Presentation: Cephalic Cephalic Presentation: Vertex Vertex Position: STRAIGHT OA Breech Presentation: N/A PLACENTA INFORMATION BABY A Placenta Delivery Time : 02/13/2016 17:03 Placenta Method of Delivery: Spontaneous Placenta Status: Delivered SCORES BABY A Heart Rate 1 min: >100 bpm Resp Effort 1 min: Good Cry Reflex Irritability 1 min: Cough or Sneeze or Pulls Away Muscle Tone 1 min: Active Motion Color 1 min: Blue/Pale Resuscitation Effort 1 min: Tactile Stimulation SCORE 1 MIN: 8 Heart Rate 5 min: >100 bpm Resp Effort 5 min: Good Cry Reflex Irritability 5 min: Cough or Sneeze or Pulls Away Muscle Tone 5 min: Active Motion Color 5 min: Body [place], Extremities Blue Resuscitation Effort 5 min: N/A SCORE 5 MIN: 9 INFORMATION BABY A Gestational Age at Delivery: 40.6 Gestational Status: Full Term- 39- 40.6 Weeks Infant Outcome : Liveborn Infant Condition : Stable Sex: Male IDENTIFICATION BABY A Infant Verification Date/Time: 02/13/2016 17:24 ID Band Number: [id number] Mother's Name Verified: Yes RN Verifying Infant: Francisco Javier Johnson [facility] Additional Verifying Personnel: Paz Troy CNA WEIGHT/LENGTH BABY A Birthweight (gm): 3840 Infant Weight (lb): 8 Infant Weight (oz): 7 Infant Length (in): 21.00 Length (cm): 53.34 CORD INFORMATION BABY A No. Cord Vessels: 3 Nuchal Cord : N/A Cord Blood Taken: Yes-For Eval (Mom's Blood Type - or O+) Suction: None ASSESSMENT BABY A Infant Complications: Multiple Variable Decels Physical Findings at Delivery: Within Normal Limits Infant Respirations: Appears Normal Skin to Skin: Yes Skin to Skin Time (min): 60 Oil Filters Inspector/ALS Called : No Care By: Tavon Villalobos RN Transferred To: Remains with Mother BABY B INFORMATION : N/A SIGNATURES Assignment: Harmony Cardona MD Signature: with User ID: Saira : with User ID: Saira
[2016-02-13] MEDS: IBUPROFEN 800 MG TABLET PO SCH (22:32)
[2016-02-13] MEDS: FAMOTIDINE 20 MG TABLET PO SCH (22:32)
[2016-02-14] MEDS: ACETAMINOPHEN WITH CODEINE #3 TABLET PO PRN ×5 (00:49→21:05)
[2016-02-14] MEDS ORDERED: CEFAZOLIN INJ 1 GM VIAL ONE (01:42)
[2016-02-14] MEDS ORDERED: CEFAZOLIN 2 GM/D5W RTU 2 GM/50 ML RTUPB IV SCH ×2 (02:00→18:00)
--- NOTE | 2016-02-14 04:46 | L&D General Admission ---
General Admit Datetime Report Generated by CPN: 02/14/2016 04:45 INFORMATION Patient Age: 31 (02/13/2016 06:37:QS system process) EDC: 02/07/2016 00:00 (02/13/2016 06:42:Jonna Lei RN) : 4 (02/13/2016 06:42:Jonna Lei RN) Para: 2 (02/13/2016 06:42:Jonna Lei RN) Term: 2 (02/13/2016 06:42:Jonna Lei RN) : 0 (02/13/2016 06:42:Jonna Lei RN) Spontaneous Abortions: 1 (02/13/2016 06:42:Jonna Lei RN) Induced Abortions: 0 (02/13/2016 06:42:Jonna Lei RN) Livin (02/13/2016 06:42:Jonna Lei RN) Cesareans: 0 (02/13/2016 06:42:Jonna Lei RN) VBACs: 0 (02/13/2016 06:42:Jonna Lei RN) Ectopic: 0 (02/13/2016 06:42:Jonna Lei RN) Multiple Births: 0 (02/13/2016 06:42:Jonna Lei RN) Baby, Number in Womb: 1 (02/13/2016 06:42:Jonna Lei RN) CARE Primary Tear Down Matcher: [facility] (02/13/2016 06:42:Jonna Lei RN) Adequate Care: Yes (02/13/2016 06:42:Aida Mills RN) Height (in): 66 (02/13/2016 20:14:QS system process) Height (in): 66 (02/13/2016 13:36:QS system process) Height (in): 66 (02/13/2016 10:22:QS system process) Height (in): 66 (02/13/2016 08:23:QS system process) Height (in): 66 (02/13/2016 08:07:QS system process) Height (in): 66 (02/13/2016 06:51:QS system process) ALLERGIES Medication Allergy: No (02/13/2016 06:42:Jonna Lei RN) Medication Allergies: No Known Drug Allergies (02/13/2016) (02/13/2016 06:51:QS system process) Medication Allergies: No Known Drug Allergies (03/27/2014) (02/13/2016 06:37:QS system process) Food Allergies: NONE (02/13/2016 06:42:Aida Mills RN) Environmental Allergies: NONE (02/13/2016 06:42:Aida Mills RN) COMMUNICATION Primary Language: [place] (02/13/2016 06:42:Aida Mills RN) Medical Tx Preferred Language: [place] (02/13/2016 06:42:Aida Mills RN) Communication Barrier(s): None (02/13/2016 06:42:Aida Mills RN) DEMOGRAPHICS Address: [address] [place] [id number] (02/13/2016 06:37:QS system process) Zipcode: [address] (02/13/2016 06:37:QS system process) Home (02/13/2016 06:37:QS system process) SSN: [id number] (02/13/2016 06:37:QS system process) Next of Kin Name: CHRISTINA PALACIOS (02/13/2016 06:37:QS system process) Next of Kin (02/13/2016 06:37:QS system process) Next of Kin Relationship: SPO (02/13/2016 06:37:QS system process) Date of : 1985 (02/13/2016 06:37:QS system process) Marital Status: Single (02/13/2016 06:37:QS system process) Sex: Female (02/13/2016 06:37:QS system process) Race: (02/13/2016 06:37:QS system process) Ethnicity: Non- or (02/13/2016 06:37:QS system process) Sikhism: Evangelical (02/13/2016 06:37:QS system process) DRUG AND ALCOHOL USE Alcohol: No (02/13/2016 06:42:Aida Mills RN) Cigarettes: Never Smoker. [id number] (02/13/2016 06:42:Aida Mills RN) Marijuana: No (02/13/2016 06:42:Aida Mills RN) Cocaine: No (02/13/2016 06:42:Aida Mills RN) Other Illicit Drugs: No (02/13/2016 06:42:Aida Mills RN) VACCINE HISTORY Influenza Vaccine: Yes (02/13/2016 06:42:Aida Mills RN) Influenza Date: 12/2015 (02/13/2016 06:42:Aida Mills RN) Pneumococcal Vaccine: No (02/13/2016 06:42:Aida Mills RN) Tetanus Vaccine: Yes (02/13/2016 06:42:Aida Mills RN) Tdap Vaccine: Yes (02/13/2016 06:42:Aida Mills RN) Tdap Date: 01/2016 (02/13/2016 06:42:Aida Mills RN) Hepatitis B Vaccine: Yes (02/13/2016 06:42:Aida Mills RN) Product Development Consultant: [facility] (02/13/2016 06:42:Aida Mills RN) Feeding Preference: Breast (02/13/2016 06:42:Aida Mills RN) Benefit of Breast Feed Discussed: Yes (02/13/2016 06:42:Aida Mills RN) Circumcision: Yes (02/13/2016 06:42:Aida Mills RN) Classes Attended: No (02/13/2016 06:42:Aida Mills RN) Tubal Ligation: No (02/13/2016 06:42:Aida Mills RN) Tubal Authorization Signed: N/A (02/13/2016 06:42:Aida Mills RN) Consent: N/A (02/13/2016 06:42:Aida Mills RN) Consent Signed: N/A (02/13/2016 06:42:Aida Mills RN) Pain Management Plans: Epidural (02/13/2016 06:42:Aida Mills RN) Plans for Labor and Delivery: None (02/13/2016 06:42:Aida Mills RN) Support Person: CHRISTINA (02/13/2016 06:42:Aida Mills RN) Support Person Relationship: (02/13/2016 06:42:Aida Mills RN) Cultural/Spritual Practice: No (02/13/2016 06:42:Aida Mills RN) Spir/Cult Dietary Needs: No (02/13/2016 06:42:Aida Mills RN) LIVING SITUATION/DISCHARGE PLAN Living Arrangements: House (02/13/2016 06:42:Aida Mills RN) Adequate Access to:: Electric; Heat; Refrigeration; Plumbing/Running water; Phone; Transportation (02/13/2016 06:42:Aida Mills RN) WIC Program: No (02/13/2016 06:42:Aida Mills RN) Discharge Medical Records Specialist Person: CHRISTINA (02/13/2016 06:42:Aida Mills RN) Person to Help after Discharge: ARLIN (02/13/2016 06:42:Aida Mills RN) Currently Using Commun Resources: No (02/13/2016 06:42:Aida Mills RN) Outside Agency/Educational Speech Language Clinician: No (02/13/2016 06:42:Aida Mills RN) Car Seat for Discharge: Yes (02/13/2016 06:42:Aida Mills RN) Adoption Requested: No (02/13/2016 06:42:Aida Mills RN) Pt Contact w/infant Post : N/A (02/13/2016 06:42:Aida Mills RN) LABS Blood Type: O Positive (02/13/2016 06:42:Jonna Lei RN) Antibody Screen: Negative (02/13/2016 06:42:Jonna Lei RN) Rho(G) this : Not Applicable (02/13/2016 06:42:Jonna Lei RN) Hemoglobin: 12.5 (02/13/2016 07:14:QS system process) Hematocrit: 36.5 (02/13/2016 07:14:QS system process) MCV: 87 (02/13/2016 07:14:QS system process) Group Beta Strep: Negative (02/13/2016 06:42:Jonna Lei RN) Gonorrhea: Negative (02/13/2016 06:42:Jonna Lei RN) Chlamydia: Negative (02/13/2016 06:42:Jonna Lei RN) RPR/VDRL: Nonreactive (02/13/2016 06:42:Jonna Lei RN) HIV Results: Negative (02/13/2016 06:42:Jonna Lei RN) Hepatitis B: Negative (02/13/2016 06:42:Jonna Lei RN) Rubella: Immune (02/13/2016 06:42:Jonna Lei RN) OB/PREVIOUS HISTORY Previous Procedures: Ultrasound (02/13/2016 06:42:Aida Mills RN) Current Procedures: Ultrasound (02/13/2016 06:42:Aida Mills RN) History of Previous : No (02/13/2016 06:42:Aida Mills RN) History of Gestational Diabetes: No (02/13/2016 06:42:Aida Mills RN) History of PIH: No (02/13/2016 06:42:Aida Mills RN) History of Incompetent Cervix: No (02/13/2016 06:42:Aida Mills RN) History of Placenta Previa/Abrup: No (02/13/2016 06:42:Aida Mills RN) History of Macrosomia: No (02/13/2016 06:42:Aida Mills RN) History of IUGR: No (02/13/2016 06:42:Aida Mills RN) History of Hemorrhage: No (02/13/2016 06:42:Aida Mills RN) History of Loss/Stillborn: No (02/13/2016 06:42:Aida Mills RN) History of : No (02/13/2016 06:42:Aida Mills RN) History of D (Rh) Sensitization: No (02/13/2016 06:42:Aida Mills RN) History Recurrent Loss/Stillborn: No (02/13/2016 06:42:Aida Mills RN) History Depression/PP Depression: No (02/13/2016 06:42:Aida Mills RN) History of Uterine Anomaly/SALU: No (02/13/2016 06:42:Aida Mills RN) History of Infertility: No (02/13/2016 06:42:Aida Mills RN) History of ART Treatment: No (02/13/2016 06:42:Aida Mills RN) History of SAUL: No (02/13/2016 06:42:Aida Mills RN) MEDICAL HISTORY Med Hx Diabetes: No (02/13/2016 06:42:Aida Mills RN) Med Hx Hypertension: No (02/13/2016 06:42:Aida Mills RN) Med Hx Heart Disease: No (02/13/2016 06:42:Aida Mills RN) Med Hx Autoimmune Disorder: No (02/13/2016 06:42:Aida Mills RN) Med Hx Kidney Disease/UTI: No (02/13/2016 06:42:Aida Mills RN) Med Hx Neurologic/Epilepsy: No (02/13/2016 06:42:Aida Mills RN) Med Hx Psychiatric Disorders: No (02/13/2016 06:42:Aida Mills RN) Med Hx Hepatitis/Liver Disease: No (02/13/2016 06:42:Aida Mills RN) Med Hx Varicosities/Phlebitis: No (02/13/2016 06:42:Aida Mills RN) Med Hx Thyroid Dysfunction: No (02/13/2016 06:42:Aida Mills RN) Med Hx Trauma/Violence: No (02/13/2016 06:42:Aida Mills RN) Med Hx Blood Transfusion: No (02/13/2016 06:42:Aida Mills RN) Med Hx Pulmonary (Asthma,TB): No (02/13/2016 06:42:Aida Mills RN) Med Hx Breast: No (02/13/2016 06:42:Aida Mills RN) Med Hx PUTTYING AND CALKING SUPERVISOR Surgery: No (02/13/2016 06:42:Aida Mills, [facility]) Med Hx Hospitalization/Surgery: Yes (02/13/2016 06:42:Aida Mills RN) Med Hx Anesthetic Complications: No (02/13/2016 06:42:Aida Mills RN) Med Hx Abnormal Pap Smear: No (02/13/2016 06:42:Aida Mills RN) Other Medical Diseases: No (02/13/2016 06:42:Aida Mills RN) Med Hx Significant Family Hx: No (02/13/2016 06:42:Aida Mills RN) INFECTIOUS HISTORY Inf Hx Gonorrhea: No (02/13/2016 06:42:Aida Mills RN) Inf Hx Chlamydia: No (02/13/2016 06:42:Aida Mills RN) Inf Hx Syphilis: No (02/13/2016 06:42:Aida iMlls RN) Inf Hx HIV/AIDS: No (02/13/2016 06:42:Aida Mills RN) Inf Hx Human Papilloma Virus: No (02/13/2016 06:42:Aida Mills RN) Inf Hx Pt/Partner Genital Herpes: No (02/13/2016 06:42:Aida Mills RN) Inf Hx Tuberculosis/Exposure: No (02/13/2016 06:42:Aida Mills RN) Inf Hx Hepatitis B,C: No (02/13/2016 06:42:Aida Mills RN) Inf Hx Rash or Viral Illness: No (02/13/2016 06:42:Aida Mills RN) GENETIC HISTORY Gen Hx Age >=35 at ALEM: No (02/13/2016 06:42:Aida Mills RN) Gen Hx Thalassemia: No (02/13/2016 06:42:Aida Mills RN) Gen Hx Congenital Heart Defect: No (02/13/2016 06:42:Aida Mills RN) Gen Hx Neural Tube Defect: No (02/13/2016 06:42:Aida Mills RN) Gen Hx Down's Syndrome: No (02/13/2016 06:42:Aida Mills RN) Gen Hx Bassem-Sachs: No (02/13/2016 06:42:Aida Mills RN) Gen Hx Ludy: No (02/13/2016 06:42:Aida Mills RN) Gen Hx Familial Dysautonomia: No (02/13/2016 06:42:Aida Mills RN) Gen Hx Sickle Cell Disease/Trait: No (02/13/2016 06:42:Aida Mills RN) Gen Hx Hemophilia/Blood Disorder: No (02/13/2016 06:42:Aida Mills RN) Gen Hx Muscular Dystrophy: No (02/13/2016 06:42:Aida Mills RN) Gen Hx Cystic Fibrosis: No (02/13/2016 06:42:Aida Mills RN) Gen Hx [place] Chorea: No (02/13/2016 06:42:Aida Mills RN) Gen Hx Mental Retardation/Autism: No (02/13/2016 06:42:Aida Mills RN) Gen Hx Tested for Fragile X: No (02/13/2016 06:42:Aida Mills RN) Gen Hx Other Inher/Chromosomal: No (02/13/2016 06:42:Aida Mills RN) Gen Hx Maternal Metabolic DO: No (02/13/2016 06:42:Aida Mills RN) Gen Hx Pt Father or FOB Defect: No (02/13/2016 06:42:Aida Mills RN) Gen Hx Other Genetic History: No (02/13/2016 06:42:Aida Mills RN) Gen Hx Drugs/Meds since LMP: No (02/13/2016 06:42:Aida Mills RN)
--- NOTE | 2016-02-14 04:46 | L&D Current Admission ---
Current Admit Datetime Report Generated by CPN: 02/14/2016 04:45 ADMISSION INFORMATION Current Admit Date/Time: 02/13/2016 07:47 (02/13/2016 07:47:Aida Mills RN) Reason for Admission: Induction of Labor (02/13/2016 07:47:Aida Mills RN) Chief Complaint: Scheduled Induction of Labor (02/13/2016 07:30:Aida Mills RN) EGA per Dates: 40.6 (02/13/2016 07:47:QS system process) Method of Arrival: Ambulatory (02/13/2016 07:47:Aida Mills RN) Reason for Induction: Postterm (02/13/2016 07:47:Aida Mills RN) Records Available: Yes (02/13/2016 07:47:Aida Mills RN) General Admission Information: Reviewed (02/13/2016 07:47:Aida Mills RN) BELONGINGS/ADVANCED DIRECTIVES Valuables/Personal Effects: Cell Phone (02/13/2016 07:47:Aida Mills RN) Other Belongings: SEE VALUABLES CONSENT (02/13/2016 07:47:Aida Mills RN) Disposition of Belongings: Kept with Patient (02/13/2016 07:47:Aida Mills RN) Advance Direct for Healthcare: No, and Wants No Information (02/13/2016 07:47:Aida Mills RN) Indicate Intent if Not With Pt: RECEIVED IN REGISTRATION (02/13/2016 07:47:Aida Mills RN) Durable Power of Professor Of Industrial Technology: No (02/13/2016 07:47:Aida Mills RN) Living Will: No (02/13/2016 07:47:Aida Mills RN) Organ Donor: Yes (02/13/2016 07:47:Aida Mills RN) Pt Rights Information Given: Yes (02/13/2016 07:47:Aida Mills RN) Pt Understands Pt Rights: Yes (02/13/2016 07:47:Aida Mills RN) LEARNING ASSESSMENT Knowledge Level: Understands L_D Process; Understands Care Activities; Understands Diagnosis (02/13/2016 07:47:Aida Mills RN) Barriers to Learning: None (02/13/2016 07:47:Aida Mills RN) Learning Readiness: Motivated (02/13/2016 07:47:Aida Mills RN) Learns Best By: 1 to 1 Instruction; Reading; Videos; Demonstration (02/13/2016 07:47:Aida Mills RN) Learning Needs: Labor and Delivery Process; Pain Management; Symptoms to Report; Treatment Plan; Medication; Diagnosis; Nutrition; Equipment; Infant Care; Community Resources (02/13/2016 07:47:Aida Mills RN) DOMESTIC VIOLANCE SCREENING Dom Viol Threatened/Hurt: No (02/13/2016 07:47:Aida Mills RN) Hx of Abuse/Neglect past 2yrs: No (02/13/2016 07:47:Aida Mills RN) Feel Unsafe Going Home: No (02/13/2016 07:47:Aida Mills RN) Addt'l Observ Indicating Abuse: No (02/13/2016 07:47:Aida Mills RN) Reason Unable to Complete Screen: N/A, Screen Completed (02/13/2016 07:47:Aida Mills RN) Considered Personal Harm/Suicide: No (02/13/2016 07:47:Aida Mills RN) NUTRITIONAL/FUNCTIONAL SCREENING Problem with Appetite >5 Days: No (02/13/2016 07:47:Aida Mills RN) Chew/Swallow Difficulties: No (02/13/2016 07:47:Aida Mills RN) Inappropriate Wt Gain/Loss: No (02/13/2016 07:47:Aida Mills RN) Presence Skin Breakdown/Ulcer: No (02/13/2016 07:47:Aida Mills RN) Special Diet: No (02/13/2016 07:47:Aida Mills RN) Pt Requests Railcar Brake Operator Visit: No (02/13/2016 07:47:Aida Mills RN) Hx of Any of the Following?: N/A (02/13/2016 07:47:Aida Mills RN) New Diagnosis of: N/A (02/13/2016 07:47:Aida Mills RN) Requires Assist w/Ambulation: No (02/13/2016 07:47:Aida Mills RN) Uses Assist Device to Ambulate: No (02/13/2016 07:47:Aida Mills RN) Pt Requires Help w/ADL's: No (02/13/2016 07:47:Aida Mills RN)
--- NOTE | 2016-02-14 04:46 | L&D Flow Sheet ---
LD Flowsheet Datetime Report Generated by CPN: 02/14/2016 04:45 Datetime: 02/13/2016 20:23 Bedside Blood Glucose: 185 H (Annotations: BS reading by S Violet RN, pt ate meal approx 45 minutes prior to BS reading. ) (Crystal Amy, RN) Datetime: 02/13/2016 20:07 NBP Sys/Dianne/Mean (mmHg): 103 (QS system process) : 58 (QS system process) : 77 (QS system process) Pulse: 96 (QS system process) Respirations: 17 (Crystal Amy, RN) Datetime: 02/13/2016 20:06 Pulse: 98 (QS system process) SpO2 (%): 98 (QS system process) Datetime: 02/13/2016 20:01 Pulse: 91 (QS system process) Pulse: 85 (QS system process) SpO2 (%): 93 (Annotations: Slow, deep breathing encouraged ) (Crystal Mishicot, RN) Datetime: 02/13/2016 19:57 NBP Sys/Dianne/Mean (mmHg): 104 (QS system process) : 56 (QS system process) : 74 (QS system process) Pulse: 75 (QS system process) Respirations: 18 (Julia Reyes, RN) Datetime: 02/13/2016 19:56 Pulse: 78 (QS system process) SpO2 (%): 97 (QS system process) Datetime: 02/13/2016 19:43 NBP Sys/Dianne/Mean (mmHg): 99 (QS system process) : 60 (QS system process) : 73 (QS system process) Pulse: 122 (QS system process) Respirations: 16 (Zaina Sandhu RN) Temperature (F): 98.2 (Zaina Sandhu RN) Temperature (C): 36.8 (QS system process) Temperature Route: Oral (Zaina Sandhu RN) Datetime: 02/13/2016 19:38 NBP Sys/Dianne/Mean (mmHg): 96 (QS system process) : 51 (QS system process) : 66 (QS system process) Pulse: 125 (QS system process) Datetime: 02/13/2016 19:33 NBP Sys/Dianne/Mean (mmHg): 100 (QS system process) : 55 (QS system process) : 72 (QS system process) Pulse: 116 (QS system process) Datetime: 02/13/2016 19:28 NBP Sys/Dianne/Mean (mmHg): 102 (QS system process) : 59 (QS system process) : 76 (QS system process) Pulse: 116 (QS system process) Datetime: 02/13/2016 19:23 NBP Sys/Dianne/Mean (mmHg): 96 (QS system process) : 52 (QS system process) : 67 (QS system process) Pulse: 120 (QS system process) Datetime: 02/13/2016 19:18 NBP Sys/Dianne/Mean (mmHg): 96 (QS system process) : 53 (QS system process) : 71 (QS system process) Pulse: 134 (QS system process) Datetime: 02/13/2016 19:13 NBP Sys/Dianne/Mean (mmHg): 97 (QS system process) : 54 (QS system process) : 69 (QS system process) Pulse: 122 (QS system process) Datetime: 02/13/2016 19:08 NBP Sys/Dianne/Mean (mmHg): 97 (QS system process) : 51 (QS system process) : 72 (QS system process) Pulse: 127 (QS system process) Datetime: 02/13/2016 19:03 Stage of : Recovery (Aida Mills RN) NBP Sys/Dianne/Mean (mmHg): 96 (QS system process) : 53 (QS system process) : 69 (QS system process) Pulse: 122 (QS system process) Respirations: 18 (Aida Mills RN) Pain Scale: 1 (Aida Mills RN) Pain Presence: Constant (Aida Mills RN) Pain Type: Burning; Dull (Aida Mills RN) Pain Location: Perineum (Aida Mills RN) Pain Relief Measures: Comfort Measures (Aida Jess Roulund, RN) Datetime: 02/13/2016 18:58 NBP Sys/Dianne/Mean (mmHg): 89 (QS system process) : 53 (QS system process) : 66 (QS system process) Pulse: 133 (QS system process) Datetime: 02/13/2016 18:53 NBP Sys/Dianne/Mean (mmHg): 87 (QS system process) : 49 (QS system process) : 62 (QS system process) Pulse: 139 (QS system process) Datetime: 02/13/2016 18:48 NBP Sys/Dianne/Mean (mmHg): 89 (QS system process) : 52 (QS system process) : 67 (QS system process) Pulse: 134 (QS system process) Datetime: 02/13/2016 18:43 NBP Sys/Dianne/Mean (mmHg): 97 (QS system process) : 55 (QS system process) : 72 (QS system process) Pulse: 120 (QS system process) Datetime: 02/13/2016 18:38 NBP Sys/Dianne/Mean (mmHg): 114 (QS system process) : 55 (QS system process) : 77 (QS system process) Pulse: 134 (QS system process) Datetime: 02/13/2016 18:33 Stage of : Recovery (Aida Mills RN) NBP Sys/Dianne/Mean (mmHg): 105 (QS system process) : 53 (QS system process) : 76 (QS system process) Pulse: 129 (QS system process) Respirations: 18 (Aida Mills RN) Temperature (F): 98.4 (Aida Mills RN) Temperature (C): 36.9 (QS system process) Temperature Route: Oral (Aida Mills RN) Pain Scale: 1 (Aida Mills RN) Pain Presence: Constant (Aida Mills RN) Pain Type: Burning; Dull (Aida Mills RN) Pain Location: Perineum (Aida Mills RN) Pain Relief Measures: Comfort Measures (Aida Mills RN) Datetime: 02/13/2016 18:28 NBP Sys/Dianne/Mean (mmHg): 107 (QS system process) : 56 (QS system process) : 76 (QS system process) Pulse: 121 (QS system process) Datetime: 02/13/2016 18:23 NBP Sys/Dianne/Mean (mmHg): 104 (QS system process) : 54 (QS system process) : 77 (QS system process) Pulse: 125 (QS system process) Datetime: 02/13/2016 18:18 Stage of : Recovery (Aida Mills RN) NBP Sys/Dianne/Mean (mmHg): 113 (QS system process) : 59 (QS system process) : 82 (QS system process) Pulse: 114 (QS system process) Respirations: 18 (Aida Mills RN) Pain Scale: 2 (Aida Mills RN) Pain Presence: Constant (Aida Mills RN) Pain Type: Burning; Dull (Aida Mills RN) Pain Location: Perineum (Aida Mills RN) Pain Relief Measures: Comfort Measures (Aida Mills RN) Datetime: 02/13/2016 18:13 Stage of : Recovery (Aida Mills RN) NBP Sys/Dianne/Mean (mmHg): 105 (QS system process) : 59 (QS system process) : 77 (QS system process) Pulse: 120 (QS system process) Datetime: 02/13/2016 18:08 NBP Sys/Dianne/Mean (mmHg): 102 (QS system process) : 57 (QS system process) : 71 (QS system process) Pulse: 105 (QS system process) Datetime: 02/13/2016 18:03 Stage of : Recovery (Aida Mills RN) NBP Sys/Dianne/Mean (mmHg): 97 (QS system process) : 53 (QS system process) : 70 (QS system process) Pulse: 102 (QS system process) Respirations: 20 (Aida Mills RN) Pain Scale: 2 (Aida Mills RN) Pain Presence: Constant (Aida Mills RN) Pain Type: Burning; Dull (Aida Mills RN) Pain Location: Perineum (Aida Mills RN) Pain Relief Measures: Comfort Measures (Aida Mills RN) Datetime: 02/13/2016 17:58 NBP Sys/Dianne/Mean (mmHg): 102 (QS system process) : 54 (QS system process) : 76 (QS system process) Pulse: 112 (QS system process) Datetime: 02/13/2016 17:53 NBP Sys/Dianne/Mean (mmHg): 100 (QS system process) : 55 (QS system process) : 72 (QS system process) Pulse: 122 (QS system process) Datetime: 02/13/2016 17:51 Stage of : Recovery (Aida Mills RN) NBP Sys/Dianne/Mean (mmHg): 101 (QS system process) : 54 (QS system process) : 72 (QS system process) Pulse: 95 (QS system process) Respirations: 20 (Aida Mills RN) Pain Scale: 2 (Aida Mills RN) Pain Presence: Constant (Aida Mills RN) Pain Type: Burning; Dull (Aida Mills RN) Pain Location: Perineum (Aida Mills RN) Datetime: 02/13/2016 17:39 Stage of : Recovery (Aida Mills RN) Datetime: 02/13/2016 17:38 NBP Sys/Dianne/Mean (mmHg): 110 (QS system process) : 54 (QS system process) : 78 (QS system process) Pulse: 93 (QS system process) Pulse: 98 (QS system process) SpO2 (%): 98 (QS system process) Datetime: 02/13/2016 17:33 NBP Sys/Dianne/Mean (mmHg): 143 (QS system process) : 66 (QS system process) : 92 (QS system process) Pulse: 103 (QS system process) Pulse: 111 (QS system process) SpO2 (%): 96 (QS system process) Datetime: 02/13/2016 17:30 Stage of : Recovery (Aida Mills RN) Respirations: 20 (Aida Mills RN) Pain Scale: 3 (Aida Mills RN) Pain Presence: Constant (Aida Mills RN) Pain Type: Burning; Sharp (Aida Jess Roulund, RN) Pain Location: Perineum (Aida Mills RN) Pain Goal: 1 (Aida Mills RN) Pain Relief Measures: Comfort Measures (Aida Mills RN) Datetime: 02/13/2016 17:28 NBP Sys/Dianne/Mean (mmHg): 99 (QS system process) : 53 (QS system process) : 74 (QS system process) Pulse: 109 (QS system process) Pulse: 100 (QS system process) SpO2 (%): 97 (QS system process) Datetime: 02/13/2016 17:23 NBP Sys/Dianne/Mean (mmHg): 102 (QS system process) : 53 (QS system process) : 76 (QS system process) Pulse: 109 (QS system process) SpO2 (%): 94 (QS system process) Datetime: 02/13/2016 17:18 NBP Sys/Dianne/Mean (mmHg): 114 (QS system process) : 57 (QS system process) : 79 (QS system process) Pulse: 121 (QS system process) Pulse: 110 (QS system process) SpO2 (%): 98 (QS system process) Datetime: 02/13/2016 17:14 Stage of : Recovery (Kamala Vitrano, RN) Datetime: 02/13/2016 17:13 Pulse: 108 (QS system process) SpO2 (%): 97 (QS system process) Datetime: 02/13/2016 17:08 Stage of : Recovery (Aida Mills RN) Pulse: 132 (QS system process) SpO2 (%): 100 (QS system process) Pain Scale: 5 (Aida Mills RN) Pain Presence: Constant (Aida Mills RN) Pain Type: Burning; Sharp (Aida Mills RN) Pain Location: Perineum (Aida Mills RN) Pain Goal: 1 (Aida Mills RN) Pain Relief Measures: Comfort Measures (Aida Mills RN) Datetime: 02/13/2016 17:05 NBP Sys/Dianne/Mean (mmHg): 112 (QS system process) : 56 (QS system process) : 77 (QS system process) Pulse: 113 (QS system process) Datetime: 02/13/2016 17:03 Stage of : Recovery (Kamala Johnson RN) Pulse: 145 (QS system process) SpO2 (%): 100 (QS system process) Patient Care Comments: Spontaneous delivery of placenta. Pitocin 20 units in 1000 mL NS bolusing. Provider completing FR. (Kamala Johnson RN) Datetime: 02/13/2016 17:00 Pulse: 108 (QS system process) SpO2 (%): 87 (QS system process) Datetime: 02/13/2016 16:58 Stage of : Recovery (Kamala Johnson RN) NBP Sys/Dianne/Mean (mmHg): 108 (QS system process) : 62 (QS system process) : 69 (QS system process) Pulse: 97 (QS system process) Pulse: 118 (QS system process) SpO2 (%): 100 (QS system process) Datetime: 02/13/2016 16:55 Stage of : Labor (Aida Mills RN) Respirations: 24 (Aida Mills, RN) Monitor Mode: Palpation (Aida Mills RN) Frequency (min): 2-3 (Aida Mills, RN) Quality: Moderate to Strong (Aida Mills, RN) Resting Tone (Palpate): Relaxed (Aida Mills, RN) Monitor Mode: External US (Aida Mills, RN) Monitor Interventions for FHR: Ultrasound Adjusted (Aida Mills, RN) Accelerations: None (Aida Mills, RN) Decelerations: Variable (Aida Mills, [place]) Comments: UTD BASELINE (Aida Mills RN) Pain Scale: 5 (Aida Mills, [place]) Pain Presence: Constant (Aida Mills, [place]) Pain Type: Burning; Pressure (Aida Mills, [place]) Pain Location: Perineum (Aida Mills, RN) Pain Relief Measures: Comfort Measures (Aida Mills, RN) Pain Coping: Crying (Aida Mills, [place]) Pitocin (milliunit): Pitocin Remains (milliunits) @ 20 (Aida Mills, [place]) IV/Blood Work: IV Infusing per Order (Aida Mills, RN) Comfort Measures: Coaching; Family Support (Aida Mills, [place]) Provider Reviewed Strip: Yes (Aida Mills RN) Pushing: Coached on Pushing; Urge to Push (Aida Mills RN) Pushing Position: Pushing with Contractions; Pushing Lithotomy (Aida Mills RN) Pushing Progress: Descent with Pushing; Perineal Bulging; Rectal Bulging; with Pushing; Pushing Effectively with Contractions (Aida Mills RN) Stage 2 Comments: OF VIABLE MALE @ 1655, APGARS 8/9. SEE DELIVERY SUMMARY. (Aida Mills RN) Communication: RN at Bedside; RN Reviewed Strip; Provider at Bedside (Aida Mills RN) LaborFlag: Labor (QS system process) Datetime: 02/13/2016 16:48 Patient Care Comments: Pt feeling faint; cold pack provided, Ammonia per CNM; pt stable (Kamala Johnson RN) Datetime: 02/13/2016 16:47 NBP Sys/Dianne/Mean (mmHg): 140 (QS system process) : 61 (QS system process) : 88 (QS system process) Pulse: 131 (QS system process) LaborFlag: Labor (QS system process) Datetime: 02/13/2016 16:45 Stage of : Labor (Aida Mills RN) NBP Sys/Dianne/Mean (mmHg): 142 (QS system process) : 63 (QS system process) : 91 (QS system process) Pulse: 112 (QS system process) Respirations: 24 (Aida Mills RN) Monitor Mode: Palpation (Aida Mills RN) Frequency (min): 3-3.5 (Aida Mills RN) Quality: Moderate to Strong (Aida Mills RN) Resting Tone (Palpate): Relaxed (Aida Mills RN) Monitor Mode: External US (Aida Mills RN) FHR Baseline Rate : 135 (Aida Mills RN) FHR Baseline Changes: No Baseline Change (Aida Mills RN) Variability: Minimal - Undetectable to <=5 bpm (Aida Mills RN) Accelerations: None (Aida Mills RN) Decelerations: Variable (Aida Mills RN) Pain Scale: 5 (Aida Mills RN) Pain Presence: Constant (Aida Mills RN) Pain Type: Burning; Pressure (Aida Mills RN) Pain Location: Perineum (Aida Mlils RN) Pain Relief Measures: Comfort Measures (Aida Mills RN) Pitocin (milliunit): Pitocin Remains (milliunits) @ 18 (Aida Mills RN) IV/Blood Work: IV Infusing per Order (Aida Mills, [place]) Comfort Measures: Coaching; Family Support (Aida Mills, [place]) Provider Reviewed Strip: Yes (Aida Mills, [place]) Communication: RN at Bedside; RN Reviewed Strip; Provider at Bedside (Aida Mills, [place]) LaborFlag: Labor (QS system process)
--- NOTE | 2016-02-14 04:47 | L&D Discharge Summary ---
OB Discharge Summary Datetime Report Generated by CPN: 02/14/2016 04:45 DISCHARGE DIAGNOSIS Gestation: 40.6 Number of Babies in Womb: 1 Parity: 2
--- NOTE | 2016-02-14 04:47 | L&D Admission Assessment ---
LD ADM ASMT Datetime Report Generated by CPN: 02/14/2016 04:45 PATIENT ASSESSMENT Assessment Type: Admission Assessment (02/13/2016 07:30:Aida Limfabricio Mills, RN) WEIGHT Weight (lb): 145 (02/13/2016 20:14:QS system process) Weight (lb): 145 (02/13/2016 13:36:QS system process) Weight (lb): 145 (02/13/2016 10:22:QS system process) Weight (lb): 145 (02/13/2016 08:23:QS system process) Weight (lb): 145 (02/13/2016 08:07:QS system process) Weight (lb): 145 (02/13/2016 06:51:QS system process) Weight (kg): 65.9 (02/13/2016 20:14:QS system process) Weight (kg): 65.9 (02/13/2016 13:36:QS system process) Weight (kg): 65.9 (02/13/2016 10:22:QS system process) Weight (kg): 65.9 (02/13/2016 08:23:QS system process) Weight (kg): 65.9 (02/13/2016 08:07:QS system process) Weight (kg): 65.9 (02/13/2016 06:51:QS system process) BMI: 23.4 (02/13/2016 20:14:QS system process) BMI: 23.4 (02/13/2016 13:36:QS system process) BMI: 23.4 (02/13/2016 10:22:QS system process) BMI: 23.4 (02/13/2016 08:23:QS system process) BMI: 23.4 (02/13/2016 08:07:QS system process) ONSET OF LABOR Onset of Labor: 02/13/2016 12:00 (02/13/2016 06:42:Aida Mills RN) PAIN Pain Scale: 1 (02/13/2016 19:03:Aida Mills RN) Pain Scale: 1 (02/13/2016 18:33:Aida Mills RN) Pain Scale: 2 (02/13/2016 18:18:Aida Mills RN) Pain Scale: 2 (02/13/2016 18:03:Aida Mills RN) Pain Scale: 2 (02/13/2016 17:51:Aida Mills RN) Pain Scale: 3 (02/13/2016 17:30:iAda Mills RN) Pain Scale: 5 (02/13/2016 17:08:Aida Mills RN) Pain Scale: 5 (02/13/2016 16:55:Aida Mills RN) Pain Scale: 5 (02/13/2016 16:45:Aida Mills RN) Pain Scale: 5 (02/13/2016 16:30:Aida Mills RN) Pain Scale: 5 (02/13/2016 16:15:Aida Mills RN) Pain Scale: 5 (02/13/2016 16:00:Aida Mills RN) Pain Scale: 4 (02/13/2016 15:50:Aida Mills RN) Pain Scale: 1 (02/13/2016 15:46:Aida Mills RN) Pain Scale: 1 (02/13/2016 15:30:Aida Mills RN) Pain Scale: 1 (02/13/2016 15:14:Aida Mlils RN) Pain Scale: 1 (02/13/2016 15:02:Aida Mills RN) Pain Scale: 1 (02/13/2016 14:45:Aida Mills RN) Pain Scale: 0 (02/13/2016 14:30:Aida Mills RN) Pain Scale: 0 (02/13/2016 14:15:Aida Mills RN) Pain Scale: 0 (02/13/2016 14:02:Aida Mills RN) Pain Scale: 4 (02/13/2016 13:45:Aida Mills RN) Pain Scale: 4 (02/13/2016 13:37:Aiad Mills RN) Pain Scale: 4 (02/13/2016 13:30:Aida Mills RN) Pain Scale: 4 (02/13/2016 13:15:Aida Mills RN) Pain Scale: 3 (02/13/2016 13:00:Aida Mills RN) Pain Scale: 3 (02/13/2016 12:45:Aida Mills RN) Pain Scale: 2 (02/13/2016 12:30:Aida Mills RN) Pain Scale: 1 (02/13/2016 12:15:Aida Mills RN) Pain Scale: 1 (02/13/2016 12:00:Aida Mills RN) Pain Scale: 1 (02/13/2016 11:45:Aida Mills RN) Pain Scale: 1 (02/13/2016 11:30:Aida Mills RN) Pain Scale: 1 (02/13/2016 11:15:Aida Mills RN) Pain Scale: 0 (02/13/2016 11:00:Aida Mills RN) Pain Scale: 1 (02/13/2016 10:00:Aida Mills RN) Pain Scale: 0 (02/13/2016 09:30:Aida Mills RN) Pain Scale: 0 (02/13/2016 09:00:Aida Mills RN) Pain Scale: 0 (02/13/2016 08:30:Aida Mills RN) Pain Scale: 0 (02/13/2016 08:02:Aida Mills RN) Pain Scale: 0 (02/13/2016 07:30:Aida Mills RN) Pain Presence: Constant (02/13/2016 19:03:Aida Mills RN) Pain Presence: Constant (02/13/2016 18:33:Aida Mills RN) Pain Presence: Constant (02/13/2016 18:18:Aida Mills RN) Pain Presence: Constant (02/13/2016 18:03:Aida Mills RN) Pain Presence: Constant (02/13/2016 17:51:Aida Mills RN) Pain Presence: Constant (02/13/2016 17:30:Aida Mills RN) Pain Presence: Constant (02/13/2016 17:08:Aida Mills RN) Pain Presence: Constant (02/13/2016 16:55:Aida Mills RN) Pain Presence: Constant (02/13/2016 16:45:Aida Mills RN) Pain Presence: Constant (02/13/2016 16:30:Aida Mills RN) Pain Presence: Constant (02/13/2016 16:15:Aida Mills RN) Pain Presence: Intermittent (02/13/2016 16:00:Aida Mills RN) Pain Presence: Intermittent (02/13/2016 15:50:Aida Mills RN) Pain Presence: Intermittent (02/13/2016 15:46:Aida Mills RN) Pain Presence: Intermittent (02/13/2016 15:30:Aida Mills RN) Pain Presence: Intermittent (02/13/2016 15:14:Aida Mills RN) Pain Presence: Intermittent (02/13/2016 15:02:Aida Mills RN) Pain Presence: Intermittent (02/13/2016 14:45:Aida Mills RN) Pain Presence: None/Denies (02/13/2016 14:30:Aida Mills RN) Pain Presence: Intermittent (02/13/2016 14:15:Aida Mills RN) Pain Presence: Intermittent (02/13/2016 14:02:Aida Mills RN) Pain Presence: Intermittent (02/13/2016 13:45:Adia Mills RN) Pain Presence: Intermittent (02/13/2016 13:37:Aida Mills RN) Pain Presence: Intermittent (02/13/2016 13:30:Aida Mills RN) Pain Presence: Intermittent (02/13/2016 13:15:Aida Mills RN) Pain Presence: Intermittent (02/13/2016 13:00:Aida Mills RN) Pain Presence: Intermittent (02/13/2016 12:45:Aida Mills RN) Pain Presence: Intermittent (02/13/2016 12:30:Aida Mills RN) Pain Presence: Intermittent (02/13/2016 12:15:Aida Mills RN) Pain Presence: Intermittent (02/13/2016 12:00:Aida Mills RN) Pain Presence: Intermittent (02/13/2016 11:45:Aida Mills RN) Pain Presence: Intermittent (02/13/2016 11:30:Aida Mills RN) Pain Presence: Intermittent (02/13/2016 11:15:Aida Mills RN) Pain Presence: Intermittent (02/13/2016 11:00:Aida Mills RN) Pain Presence: None/Denies (02/13/2016 10:00:Aida Mills RN) Pain Presence: Intermittent (02/13/2016 09:30:Aida Mills RN) Pain Presence: None/Denies (02/13/2016 09:00:Aida Mills RN) Pain Presence: None/Denies (02/13/2016 08:30:Aida Mills RN) Pain Presence: None/Denies (02/13/2016 08:02:Aida Mills RN) Pain Presence: None/Denies (02/13/2016 07:30:Aida Mills RN) Pain Type: Burning; Dull (02/13/2016 19:03:Aida Mills RN) Pain Type: Burning; Dull (02/13/2016 18:33:Aida Mills RN) Pain Type: Burning; Dull (02/13/2016 18:18:Aida Mills RN) Pain Type: Burning; Dull (02/13/2016 18:03:Aida Mills RN) Pain Type: Burning; Dull (02/13/2016 17:51:Aida Mills RN) Pain Type: Burning; Sharp (02/13/2016 17:30:Aida Mills RN) Pain Type: Burning; Sharp (02/13/2016 17:08:Aida Mills RN) Pain Type: Burning; Pressure (02/13/2016 16:55:Aida Mills RN) Pain Type: Burning; Pressure (02/13/2016 16:45:Aida Mills RN) Pain Type: Pressure (02/13/2016 16:30:Aida Mills RN) Pain Type: Pressure (02/13/2016 16:15:Aida Mills RN) Pain Type: Pressure (02/13/2016 16:00:Aida Mills RN) Pain Type: Pressure (02/13/2016 15:50:Aida Mills RN) Pain Type: Pressure (02/13/2016 15:46:Aida Mills RN) Pain Type: Pressure (02/13/2016 15:30:Aida Mills RN) Pain Type: Pressure (02/13/2016 15:14:Aida Mills RN) Pain Type: Pressure (02/13/2016 15:02:Aida Mills RN) Pain Type: Pressure (02/13/2016 14:45:Aida Mills RN) Pain Type: Pressure (02/13/2016 14:30:Aida Mills RN) Pain Type: Pressure (02/13/2016 14:15:Aida Mills RN) Pain Type: Pressure (02/13/2016 14:02:Aida Mills RN) Pain Type: Contraction; Pressure (02/13/2016 13:45:Aida Mills RN) Pain Type: Contraction (02/13/2016 13:37:Aida Mills RN) Pain Type: Contraction (02/13/2016 13:30:Aida Mills RN) Pain Type: Contraction (02/13/2016 13:15:Aida Mills RN) Pain Type: Contraction (02/13/2016 13:00:Aida Mills RN) Pain Type: Contraction (02/13/2016 12:45:Aida Mills RN) Pain Type: Contraction (02/13/2016 12:30:Aida Mills RN) Pain Type: Contraction (02/13/2016 12:15:Aida Mills RN) Pain Type: Contraction (02/13/2016 12:00:Aida Mills RN) Pain Type: Contraction (02/13/2016 11:45:Aida Mills RN) Pain Type: Contraction (02/13/2016 11:30:Aida Mills RN) Pain Type: Contraction (02/13/2016 11:15:Aida Mills RN) Pain Type: Cramping (02/13/2016 11:00:Aida Mills RN) Pain Type: Cramping (02/13/2016 10:00:Aida Mills RN) Pain Type: Cramping (02/13/2016 09:30:Aida Mills RN) Pain Type: N/A (02/13/2016 09:00:Aida Mills RN) Pain Type: N/A (02/13/2016 08:30:Aida Mills RN) Pain Type: N/A (02/13/2016 08:02:Aida Mills RN) Pain Type: N/A (02/13/2016 07:30:Aida Mills RN) Pain Location: Perineum (02/13/2016 19:03:Aida Mills RN) Pain Location: Perineum (02/13/2016 18:33:iAda Mills RN) Pain Location: Perineum (02/13/2016 18:18:Aida Mills RN) Pain Location: Perineum (02/13/2016 18:03:Aida Mills RN) Pain Location: Perineum (02/13/2016 17:51:Aida Mills RN) Pain Location: Perineum (02/13/2016 17:30:Aida Mills RN) Pain Location: Perineum (02/13/2016 17:08:Aida Mills RN) Pain Location: Perineum (02/13/2016 16:55:Aida Mills RN) Pain Location: Perineum (02/13/2016 16:45:Aida Mills RN) Pain Location: Perineum (02/13/2016 16:30:Aida Mills RN) Pain Location: Perineum (02/13/2016 16:15:Aida Mills RN) Pain Location: Perineum (02/13/2016 16:00:Aida Mills RN) Pain Location: Perineum (02/13/2016 15:50:Aida Mills RN) Pain Location: Perineum (02/13/2016 15:46:Aida iMlls RN) Pain Location: Perineum (02/13/2016 15:30:Aida Mills RN) Pain Location: Perineum (02/13/2016 15:14:Aida Mills RN) Pain Location: Perineum (02/13/2016 15:02:Aida Mills RN) Pain Location: Perineum (02/13/2016 14:45:Aida Mills RN) Pain Location: Perineum (02/13/2016 14:30:Aida Mills RN) Pain Location: Perineum (02/13/2016 14:15:Aida Mills RN) Pain Location: Perineum (02/13/2016 14:02:Aida Mills RN) Pain Location: Abdomen; Perineum (02/13/2016 13:45:Aida Mills RN) Pain Location: Abdomen (02/13/2016 13:37:Aida Mills RN) Pain Location: Abdomen (02/13/2016 13:30:Aida Mills RN) Pain Location: Abdomen (02/13/2016 13:15:Aida Mills RN) Pain Location: Abdomen (02/13/2016 13:00:Aida Mills RN) Pain Location: Abdomen (02/13/2016 12:45:Aida Mills RN) Pain Location: Abdomen (02/13/2016 12:30:Aida Mills RN) Pain Location: Abdomen (02/13/2016 12:15:Aida Mills RN) Pain Location: Abdomen (02/13/2016 12:00:Aida Mills RN) Pain Location: Abdomen (02/13/2016 11:45:Aida Mills RN) Pain Location: Abdomen (02/13/2016 11:30:Aida Mills RN) Pain Location: Abdomen (02/13/2016 11:15:Aida Mills RN) Pain Location: Abdomen (02/13/2016 11:00:Aida Mills RN) Pain Location: Abdomen (02/13/2016 10:00:Aida Mills RN) Pain Location: Abdomen (02/13/2016 09:30:Aida Mills RN) Pain Goal: 1 (02/13/2016 17:30:Aida Mills RN) Pain Goal: 1 (02/13/2016 17:08:Aida Mills RN) Pain Comments: pressure only (02/13/2016 14:02:Aida Mills RN) CONTRACTIONS Frequency (min): 2-3 (02/13/2016 16:55:Aida Mills, RN) Frequency (min): 3-3.5 (02/13/2016 16:45:Aida Mills, RN) Frequency (min): 2-3 (02/13/2016 16:30:Aida Mills, RN) Frequency (min): 2.5-3 (02/13/2016 16:15:Aida Mills, RN) Frequency (min): 2-3 (02/13/2016 16:00:Aida Mills RN) Frequency (min): 1.5-3 (02/13/2016 15:46:Aida Mills, RN) Frequency (min): 2.5-3 (02/13/2016 15:30:Aida Mills, RN) Frequency (min): 2-3.5 (02/13/2016 15:14:Aida Mills, RN) Frequency (min): 2-3.5 (02/13/2016 15:02:Aida Mills RN) Frequency (min): 1.5-3 (02/13/2016 14:45:Aida Mills, RN) Frequency (min): 2-4 (02/13/2016 14:30:Aida Mills, RN) Frequency (min): 1.5-3 (02/13/2016 14:15:Aida Mills, RN) Frequency (min): 1.5-2.5 (02/13/2016 14:02:Aida Mills RN) Frequency (min): 1.5-2.5 (02/13/2016 13:45:Aida Jess Roulund, RN) Frequency (min): 2-2.5 (02/13/2016 13:30:Aida Jess Roulund, RN) Frequency (min): 2-3 (02/13/2016 13:15:Aida Jess Roulund, RN) Frequency (min): 1.5-2.5 (02/13/2016 13:00:Aida Jess Roulund, RN) Frequency (min): 2.5-3 (02/13/2016 12:45:Aida Jess Roulund, RN) Frequency (min): 1.5-3 (02/13/2016 12:30:Aida Jess Roulund, RN) Frequency (min): 2-4 (02/13/2016 12:15:Aida Jess Roulund, RN) Frequency (min): 1.5-5 (02/13/2016 12:00:Aida Jess Roulund, RN) Frequency (min): 1.5-5.5 (02/13/2016 11:45:Aida Jess Roulund, RN) Frequency (min): 2.5-3 (02/13/2016 11:30:Aida Jess Roulund, RN) Frequency (min): 2-3 (02/13/2016 11:15:Aida Jess Roulund, RN) Frequency (min): 2.5-3 (02/13/2016 11:00:Aida Jess Roulund, RN) Frequency (min): 3.5 (02/13/2016 10:45:Aida Jess Roulund, RN) Frequency (min): 3-4 (02/13/2016 10:30:Aida Jess Roulund, RN) Frequency (min): 2.5-3 (02/13/2016 10:14:Aida Jess Roulund, RN) Frequency (min): 2.5-4 (02/13/2016 10:00:Aida Jess Roulund, RN) Frequency (min): 3-5 (02/13/2016 09:45:Aida Jess Roulund, RN) Frequency (min): 3-4 (02/13/2016 09:30:Aida Raynd, RN) Frequency (min): 3.5-4.5 (02/13/2016 09:15:Aida Raynd, RN) Frequency (min): 2.5-4 (02/13/2016 09:00:Aida Raynd, RN) Frequency (min): X2 (02/13/2016 08:45:Aida Raynd, RN) Frequency (min): X1 (02/13/2016 08:30:Aida Jess Kylelund, RN) Frequency (min): x1 (02/13/2016 08:15:Aida Jess Raynd, RN) Frequency (min): x1 (02/13/2016 08:02:Aida Raynd, RN) Frequency (min): NONE (02/13/2016 07:30:Aida Raynd, RN) Duration (sec): 55-65 (02/13/2016 16:00:Aida Raynd, RN) Duration (sec): 55-70 (02/13/2016 15:46:Aida Raynd, RN) Duration (sec): 40-60 (02/13/2016 15:14:Aida Raynd, RN) Duration (sec): 55-70 (02/13/2016 15:02:Aida Raynd, RN) Duration (sec): 60-80 (02/13/2016 14:45:Aida Raynd, RN) Duration (sec): 60-70 (02/13/2016 14:30:Aida Raynd, RN) Duration (sec): 60-70 (02/13/2016 14:15:Aida Raynd, RN) Duration (sec): 60-70 (02/13/2016 14:02:Aida Raynd, RN) Duration (sec): 60-80 (02/13/2016 13:45:Aida Mills, RN) Duration (sec): 60-70 (02/13/2016 13:30:Aida Raynd, RN) Duration (sec): 60-70 (02/13/2016 13:15:Aida Mills RN) Duration (sec): 60-90 (02/13/2016 13:00:Aida Mills RN) Duration (sec): 65-80 (02/13/2016 12:45:Aida Mills RN) Duration (sec): 60-80 (02/13/2016 12:30:Aida Mills RN) Duration (sec): 60-80 (02/13/2016 12:15:Aida Mills RN) Duration (sec): 60-80 (02/13/2016 12:00:Aida Mills RN) Duration (sec): 55-120 (02/13/2016 11:45:Aida Mills RN) Duration (sec): 60-70 (02/13/2016 11:30:Aida Mills RN) Duration (sec): 60-80 (02/13/2016 11:15:Aida Mills RN) Duration (sec): 60-80 (02/13/2016 11:00:Aida Mills RN) Duration (sec): 60-80 (02/13/2016 10:45:Aida Mills RN) Duration (sec): 60-80 (02/13/2016 10:30:Aida Mills RN) Duration (sec): 60-80 (02/13/2016 10:14:Aida Mills RN) Duration (sec): 80-100 (02/13/2016 10:00:Aida Mills RN) Duration (sec): 80-120 (02/13/2016 09:45:Aida Mills RN) Duration (sec): 80-100 (02/13/2016 09:30:Aida Mills RN) Duration (sec): 70-90 (02/13/2016 09:15:Aida Mills RN) Duration (sec): 60-70 (02/13/2016 09:00:Aida Mills RN) Duration (sec): 80-150 (02/13/2016 08:45:Aida Mills RN) Duration (sec): 120 (02/13/2016 08:30:Aida Mills RN) Duration (sec): 120 (02/13/2016 08:15:Aida Mills RN) Duration (sec): 90 (02/13/2016 08:02:Aida Mills RN) Quality: Moderate to Strong (02/13/2016 16:55:Aida Mills RN) Quality: Moderate to Strong (02/13/2016 16:45:Aida Mills RN) Quality: Moderate to Strong (02/13/2016 16:30:Aida Mills RN) Quality: Moderate to Strong (02/13/2016 16:15:Aida Mills RN) Quality: Moderate to Strong (02/13/2016 16:00:Aida Mills RN) Quality: Moderate to Strong (02/13/2016 15:46:Aida Mills RN) Quality: Moderate to Strong (02/13/2016 15:30:Aida Mills RN) Quality: Moderate to Strong (02/13/2016 15:14:Aida Mills RN) Quality: Moderate to Strong (02/13/2016 15:02:Aida Mills RN) Quality: Moderate to Strong (02/13/2016 14:45:Aida Mills RN) Quality: Moderate to Strong (02/13/2016 14:30:Aida Mills RN) Quality: Moderate to Strong (02/13/2016 14:15:Aida Mills RN) Quality: Moderate to Strong (02/13/2016 14:02:Aida Mills RN) Quality: Moderate to Strong (02/13/2016 13:45:Aida Mills RN) Quality: Moderate (02/13/2016 13:30:Aida Mills RN) Quality: Moderate (02/13/2016 13:15:Aida Mills RN) Quality: Moderate (02/13/2016 13:00:Aida Mills RN) Quality: Moderate (02/13/2016 12:45:Aida Mills RN) Quality: Moderate (02/13/2016 12:30:Aida Mills RN) Quality: Mild/Moderate (02/13/2016 12:15:Aida Mills RN) Quality: Mild/Moderate (02/13/2016 12:00:Aida Mills RN) Quality: Mild/Moderate (02/13/2016 11:45:Aida Mills RN) Quality: Mild/Moderate (02/13/2016 11:30:Aida Mills RN) Quality: Mild/Moderate (02/13/2016 11:15:Aida Mills RN) Quality: Mild (02/13/2016 11:00:Aida Mills RN) Quality: Mild (02/13/2016 10:45:Aida Mills RN) Quality: Mild (02/13/2016 10:30:Aida Mills RN) Quality: Mild (02/13/2016 10:14:Aida Mills RN) Quality: Mild (02/13/2016 10:00:Aida Mills RN) Quality: Mild (02/13/2016 09:45:Aida Mills RN) Quality: Mild (02/13/2016 09:30:Aida Mills RN) Quality: Mild (02/13/2016 09:15:Aida Mills RN) Quality: Mild (02/13/2016 09:00:Aida Mills RN) Quality: Mild (02/13/2016 08:45:Aida Mills RN) Quality: Mild (02/13/2016 08:30:Aida Mills RN) Quality: Mild (02/13/2016 08:15:Aida Mills RN) Quality: Mild (02/13/2016 08:02:Aida Mills RN) Resting Tone Spooner: Relaxed (02/13/2016 16:55:Aida Mills RN) Resting Tone [place]: Relaxed (02/13/2016 16:45:Aida Mills RN) Resting Tone [place]: Relaxed (02/13/2016 16:30:Aida Mills RN) Resting Tone [place]ooner: Relaxed (02/13/2016 16:15:Aida Mills RN) Resting Tone [place]ooner: Relaxed (02/13/2016 16:00:Aida Mills RN) Resting Tone [place]ooner: Relaxed (02/13/2016 15:46:Aida Mills RN) Resting Tone Spooner: Relaxed (02/13/2016 15:30:Aida Mills RN) Resting Tone Spooner: Relaxed (02/13/2016 15:14:Aida Mills RN) Resting Tone [place]ooner: Relaxed (02/13/2016 15:02:Adia Mills RN) Resting Tone Spooner: Relaxed (02/13/2016 14:45:Aida Mills RN) Resting Tone [place]ooner: Relaxed (02/13/2016 14:30:Aida Mills RN) Resting Tone [place]ooner: Relaxed (02/13/2016 14:15:Aida Mills RN) Resting Tone Spooner: Relaxed (02/13/2016 14:02:Aida Mills RN) Resting Tone Spooner: Relaxed (02/13/2016 13:45:Aida Mills RN) Resting Tone [place]ooner: Relaxed (02/13/2016 13:30:Aida Mills RN) Resting Tone [place]er: Relaxed (02/13/2016 13:15:Aida Mills RN) Resting Tone [place]: Relaxed (02/13/2016 13:00:Aida Mills RN) Resting Tone [place]ooner: Relaxed (02/13/2016 12:45:Aida Mills RN) Resting Tone [place]: Relaxed (02/13/2016 12:30:Aida Mills RN) Resting Tone [place]: Relaxed (02/13/2016 12:15:Aida Mills RN) Resting Tone [place]: Relaxed (02/13/2016 12:00:Aida Mills RN) Resting Tone [place]: Relaxed (02/13/2016 11:45:Aida Mills RN) Resting Tone [place]: Relaxed (02/13/2016 11:30:Aiad Mills RN) Resting Tone [place]ooner: Relaxed (02/13/2016 11:15:Aida Mills RN) Resting Tone [place]: Relaxed (02/13/2016 11:00:Aida Mills RN) Resting Tone [place]er: Relaxed (02/13/2016 10:45:Aida Mills RN) Resting Tone Spooner: Relaxed (02/13/2016 10:30:Aida Mills RN) Resting Tone [place]ooner: Relaxed (02/13/2016 10:14:Aida Mills RN) Resting Tone [place]er: Relaxed (02/13/2016 10:00:Aida Mills RN) Resting Tone [place]er: Relaxed (02/13/2016 09:45:Aida Mills RN) Resting Tone [place]: Relaxed (02/13/2016 09:30:Aida Mills RN) Resting Tone [place]: Relaxed (02/13/2016 09:15:Aida Mills RN) Resting Tone [place]ooner: Relaxed (02/13/2016 09:00:Aida Mills RN) Resting Tone [place]ooner: Relaxed (02/13/2016 08:45:Aida Mills RN) Resting Tone [place]: Relaxed (02/13/2016 08:30:Aida Mills RN) Resting Tone [place]: Relaxed (02/13/2016 08:15:Aida Mills RN) Resting Tone [place]er: Relaxed (02/13/2016 08:02:Aida Mills RN) Resting Tone Spooner: Relaxed (02/13/2016 07:30:Aida Mills RN) VAGINAL EXAM Dilatation (cm): 10.0 (02/13/2016 15:53:Kamala Johnson RN) Dilatation (cm): 10.0 (02/13/2016 15:50:Aida Mills RN) Dilatation (cm): 4.0 (02/13/2016 14:06:Aida Mills RN) Dilatation (cm): 4.0 (02/13/2016 12:00:Aida Mills RN) Effacement (%): 100 (02/13/2016 15:53:Kamala Johnson RN) Effacement (%): 100 (02/13/2016 15:50:Aida Mills RN) Effacement (%): 90 (02/13/2016 14:06:Aida Mills RN) Effacement (%): 60 (02/13/2016 12:00:Aida Mills RN) Station: 2 (02/13/2016 15:53:Kamala Johnson RN) Station: 2 (02/13/2016 15:50:Aida Mills RN) Station: 0 (02/13/2016 14:06:Aida Mills RN) Station: -1 (02/13/2016 12:00:Aida Mills RN) Membranes Status: Ruptured (02/13/2016 12:00:Aida Mills RN) Membranes Status: Intact (02/13/2016 07:30:Aida Mills RN) Membranes Rupture D/ (02/13/2016 06:42:Aida Mills RN) ROM Method: Artificial (02/13/2016 12:00:Aida Mills RN) Amniotic Fluid Color: Clear (02/13/2016 12:00:Aida Mills RN) Amniotic Fluid Amount: Moderate (02/13/2016 12:00:Aida Mills RN) Amniotic Fluid Odor: None (02/13/2016 12:00:Aida Mills RN) NEURO Level of Consciousness: Fully Conscious (02/13/2016 07:30:Aida Mills RN) DTR's/Clonus: DTRs 2+; No Clonus (02/13/2016 07:30:Aida Mills RN) Headache: Denies (02/13/2016 07:30:Aida Mills RN) Dizziness: No (02/13/2016 07:30:Aida Mills RN) Blurred Vision: No (02/13/2016 07:30:Aida Mills RN) Extremity Numbness/Tingling : None (02/13/2016 07:30:Aida Mills RN) Extremity Movement: Full Range of Motion (02/13/2016 07:30:Aida Mills RN) CARDIOVASCULAR Heart Rhythm: Regular (02/13/2016 07:30:Aida Mills RN) Nailbeds: [place] (02/13/2016 07:30:Aida Mills RN) Capillary Refill: Less than 3 Seconds (02/13/2016 07:30:Aida Mills RN) Lower Extremities Edema: None (02/13/2016 07:30:Aida Mills RN) Lower Extremities Edema Degree: None (02/13/2016 07:30:Aida Mills RN) Upper Extremities Edema: None (02/13/2016 07:30:Aida Mills RN) Upper Extremities Edema Degree: None (02/13/2016 07:30:Aida Mills RN) Facial Edema: None (02/13/2016 07:30:Aida Mills RN) Marilee's Sign Left Leg: Negative (02/13/2016 07:30:Aida Mills RN) Marilee's Sign Right Leg: Negative (02/13/2016 07:30:Aida Mills RN) DVT RISK ASSESSMENT DVT Risk Age: Age less than 41 years (02/13/2016 07:30:Aida Mills RN) DVT Risk BMI: BMI<31 (02/13/2016 07:30:Aida Mills RN) DVT Risk Surgery: None Applicable (02/13/2016 07:30:Aida Mills RN) DVT Risk Other: None Applicable (02/13/2016 07:30:Aida Mills RN) DVT Risk Total: 0 (02/13/2016 07:30:QS system process) DVT Risk Text: Low Risk (<10%) No specific measures, early ambulation (02/13/2016 07:30:QS system process) RESPIRATORY Respiratory Effort: Unlabored; Regular Rhythm; Equal Expansion (02/13/2016 07:30:Aida Mills RN) Breath Sounds, Left: Clear and Equal (02/13/2016 07:30:Aida Mills RN) Breath Sounds, Right: Clear and Equal (02/13/2016 07:30:Aida Mills RN) Cough Productivity: None (02/13/2016 07:30:Aida Mills RN) GASTROINTESTINAL Nausea/Vomiting: Present (02/13/2016 11:15:Aida Mills RN) Nausea/Vomiting: Present (Annotations: H/O GERD- TOOK ZANTAC THIS AM) (02/13/2016 07:30:Aida Mills RN) RUQ Epigastric Pain: Denies (02/13/2016 07:30:Aida Mills RN) Bowel Patterns: Soft, Formed Stool (02/13/2016 07:30:Aida Mills RN) Hemorrhoids: None (02/13/2016 07:30:Aida Mills RN) Diet Type: Regular diet (02/13/2016 07:30:Aida Mills RN) Last Meal: 02/13/2016 06:00 (02/13/2016 07:30:Aida Mills RN) GENITOURINARY Bladder: Nondistended (02/13/2016 07:30:Aida Mills RN) Frequency of Urination: No (02/13/2016 07:30:Aida Mills RN) Urination Burning: No (02/13/2016 07:30:Aida Mills RN) Vaginal Bleeding: None (02/13/2016 07:30:Aida Mills RN) Vaginal Discharge Amount: None (02/13/2016 07:30:Aida Mills RN) Vaginal Discharge Color: N/A (02/13/2016 07:30:Aida Mills RN) Vaginal Discharge Character: None (02/13/2016 07:30:Aida Mills RN) INTEGUMENTARY Skin Color: Normal for Race (02/13/2016 07:30:Aida Mills RN) Skin Temperature: Warm (02/13/2016 07:30:Aida Mills RN) Skin Moisture: Dry (02/13/2016 07:30:Aida Mills RN) Surgical Scars: NONE (02/13/2016 07:30:Aida Mills RN) Body Piercings/Tattoos: EARS PIERCED (02/13/2016 07:30:Aida Mills RN) TAZ SKIN ASSESSMENT Taz Scale Sensory Perception: No Impairment- Responds to verbal commands. Has no sensory deficit which would limit ability to feel or voice pain or discomfort (02/13/2016 07:30:Aida Mills RN) Taz Scale Moisture: Rarely Moist- Skin is usually dry. Linen only requires changing at routine intervals (02/13/2016 07:30:Aida Mills RN) Taz Scale Activity: Walks Frequently- Walks outside the room at least twice a day and inside room at least every 2 hours during the day. (02/13/2016 07:30:Aida Mills RN) Taz Scale Mobility: No Limitations- Makes major and frequent changes in position without assistance (02/13/2016 07:30:Aida Mills RN) Taz Scale Nutrition: Excellent- Eats most of every meal. Never refuses a meal. Usually eats a total of 4 or more servings of meat and dairy products. Occasionally eats between meals. Does not require supplementation (02/13/2016 07:30:Aida Mills RN) Taz Scale Friction and Shear: No Apparent Problem- Moves in bed and in chair independently and has sufficient muscle strength to lift up completely during move. Maintains good position in bed or chair at all times (02/13/2016 07:30:Aida Mills RN) Taz Scale Total: 23 (02/13/2016 07:30:QS system process) Taz Scale Risk: No Risk of Pressure Ulcer Noted at this Time (02/13/2016 07:30:QS system process) SUPPORT Family Support: Significant Other supportive, at bedside frequently (02/13/2016 07:30:Aida Mills RN) Emotional State: Calm/Relaxed (02/13/2016 07:30:Aida Mills RN) SAFETY Call [place] Within Reach: Yes (02/13/2016 07:30:Aida Mills RN) Side Rails Up: Yes (02/13/2016 07:30:Aida Mills RN) Bed Wheels Locked: Yes (02/13/2016 07:30:Aida Mills RN) Arm Bands Present: Yes (02/13/2016 07:30:Aida Mills RN) Isolation: [place] (02/13/2016 07:30:Aida Mills RN) FALL SCREEN Fall Risk History of Falling: (0) No (02/13/2016 07:30:Aida Mills RN) Fall Risk Secondary Diagnosis: (0) No (02/13/2016 07:30:Aida Mills RN) Fall Risk Ambulatory Aid: (0) None/Bedrest/Wheelchair/Nurse Assist (02/13/2016 07:30:Aida Mills RN) Fall Risk IV Therapy: (20) Yes (02/13/2016 07:30:Aida Mills RN) Fall Risk Gait: (0) Normal/Bedrest/Immobile (02/13/2016 07:30:Aida Mills RN) Fall Risk Mental Status: (0) Oriented to Own Ability (02/13/2016 07:30:Aida Mills RN) Fall Risk Score: 20 (02/13/2016 07:30:QS system process) Fall Risk Score Definition: No Risk: No action required (02/13/2016 07:30:QS system process) RECENT TRAVEL/INFECTIOUS DISEASE Recent Exp Communicable Disease: No (02/13/2016 07:30:Aida Mills RN) Cough or Fever: No (02/13/2016 07:30:Aida Mills RN) Foreign Travel Past 10 Days: No (02/13/2016 07:30:Aida Mills RN) Open Wounds or Sores: No (02/13/2016 07:30:Aida Mills RN) Prior Antibiotic Resistance Tx: No (02/13/2016 07:30:Aida Mills RN) Cultures Obtained: Not Applicable (02/13/2016 07:30:Aida Mills RN) Isolation Initiated: No (02/13/2016 07:30:Aida Mills RN) Pt/Family Education: Not Applicable (02/13/2016 07:30:Aida Mills RN) BABY A FHR Baseline Rate (bpm) Baby A: 135 (02/13/2016 16:45:Aida Mills RN) FHR Baseline Rate (bpm) Baby A: 135 (02/13/2016 16:30:Aida Mills RN) FHR Baseline Rate (bpm) Baby A: 135 (02/13/2016 16:15:Aida Mills RN) FHR Baseline Rate (bpm) Baby A: 125 (02/13/2016 15:46:Aida Mills RN) FHR Baseline Rate (bpm) Baby A: 125 (02/13/2016 15:30:Aida Mills RN) FHR Baseline Rate (bpm) Baby A: 125 (02/13/2016 15:14:Aida Mills RN) FHR Baseline Rate (bpm) Baby A: 125 (02/13/2016 15:02:Aida Mills RN) FHR Baseline Rate (bpm) Baby A: 125 (02/13/2016 14:45:Aida Mills RN) FHR Baseline Rate (bpm) Baby A: 125 (02/13/2016 14:30:Aida Mills RN) FHR Baseline Rate (bpm) Baby A: 120 (02/13/2016 14:15:Aida Mills RN) FHR Baseline Rate (bpm) Baby A: 120 (02/13/2016 14:02:Aida Mills RN) FHR Baseline Rate (bpm) Baby A: 125 (02/13/2016 13:30:Aida Mills RN) FHR Baseline Rate (bpm) Baby A: 125 (02/13/2016 13:15:Aida Mills RN) FHR Baseline Rate (bpm) Baby A: 125 (02/13/2016 13:00:Aida Mills RN) FHR Baseline Rate (bpm) Baby A: 130 (02/13/2016 12:45:Aida Mills RN) FHR Baseline Rate (bpm) Baby A: 130 (02/13/2016 12:30:Aida Mills RN) FHR Baseline Rate (bpm) Baby A: 125 (02/13/2016 12:15:Aida Mills RN) FHR Baseline Rate (bpm) Baby A: 135 (02/13/2016 12:00:Aida Mills RN) FHR Baseline Rate (bpm) Baby A: 130 (02/13/2016 11:45:Aida Mills RN) FHR Baseline Rate (bpm) Baby A: 125 (02/13/2016 11:30:Aida Mills RN) FHR Baseline Rate (bpm) Baby A: 130 (02/13/2016 11:15:Aida Mills RN) FHR Baseline Rate (bpm) Baby A: 130 (02/13/2016 11:00:Aida Mills RN) FHR Baseline Rate (bpm) Baby A: 130 (02/13/2016 10:45:Aida Mills RN) FHR Baseline Rate (bpm) Baby A: 135 (02/13/2016 10:30:Aida Mills RN) FHR Baseline Rate (bpm) Baby A: 135 (02/13/2016 10:14:Aida Mills RN) FHR Baseline Rate (bpm) Baby A: 135 (02/13/2016 10:00:Aida Mills RN) FHR Baseline Rate (bpm) Baby A: 135 (02/13/2016 09:45:Aida Mills RN) FHR Baseline Rate (bpm) Baby A: 135 (02/13/2016 09:30:Aida Mills RN) FHR Baseline Rate (bpm) Baby A: 135 (02/13/2016 09:15:Aida Mills RN) FHR Baseline Rate (bpm) Baby A: 135 (02/13/2016 09:00:Aida Mills RN) FHR Baseline Rate (bpm) Baby A: 135 (02/13/2016 08:45:Aida Mills RN) FHR Baseline Rate (bpm) Baby A: 135 (02/13/2016 08:30:Aida Mills RN) FHR Baseline Rate (bpm) Baby A: 135 (02/13/2016 08:15:Aida Mills RN) FHR Baseline Rate (bpm) Baby A: 135 (02/13/2016 08:02:Aida Mills RN) FHR Baseline Rate (bpm) Baby A: 140 (02/13/2016 07:30:Aida Mills RN) Variability Baby A: Minimal - Undetectable to <=5 bpm (02/13/2016 16:45:Aida Mills RN) Variability Baby A: Minimal - Undetectable to <=5 bpm (02/13/2016 16:30:Aida Mills RN) Variability Baby A: Minimal - Undetectable to <=5 bpm (02/13/2016 16:15:Aida Mills RN) Variability Baby A: Moderate 6-25 bpm (02/13/2016 16:00:Aida Mills RN) Variability Baby A: Moderate 6-25 bpm (02/13/2016 15:46:Aida Mills RN) Variability Baby A: Moderate 6-25 bpm (02/13/2016 15:30:Aida Mills RN) Variability Baby A: Moderate 6-25 bpm (02/13/2016 15:14:Aida Mills RN) Variability Baby A: Moderate 6-25 bpm (02/13/2016 15:02:Aida Mills RN) Variability Baby A: Moderate 6-25 bpm (02/13/2016 14:45:Aida Mills RN) Variability Baby A: Moderate 6-25 bpm (02/13/2016 14:30:Aida Mills RN) Variability Baby A: Moderate 6-25 bpm (02/13/2016 14:15:Aida Mills RN) Variability Baby A: Moderate 6-25 bpm (02/13/2016 14:02:Aida Mills RN) Variability Baby A: Moderate 6-25 bpm (02/13/2016 13:30:Aida Mills RN) Variability Baby A: Moderate 6-25 bpm (02/13/2016 13:15:Aida Mills RN) Variability Baby A: Moderate 6-25 bpm (02/13/2016 13:00:Aida Mills RN) Variability Baby A: Moderate 6-25 bpm (02/13/2016 12:45:Aida Mills RN) Variability Baby A: Moderate 6-25 bpm (02/13/2016 12:30:Aida Mills RN) Variability Baby A: Moderate 6-25 bpm (02/13/2016 12:15:Aida Mills RN) Variability Baby A: Moderate 6-25 bpm (02/13/2016 12:00:Aida Mills RN) Variability Baby A: Moderate 6-25 bpm (02/13/2016 11:45:Aida Mills RN) Variability Baby A: Moderate 6-25 bpm (02/13/2016 11:30:Aida Mills RN) Variability Baby A: Moderate 6-25 bpm (02/13/2016 11:15:Aida Mills RN) Variability Baby A: Moderate 6-25 bpm (02/13/2016 11:00:Aida Mills RN) Variability Baby A: Moderate 6-25 bpm (02/13/2016 10:45:Aida Mills RN) Variability Baby A: Moderate 6-25 bpm (02/13/2016 10:30:Aida Mills RN) Variability Baby A: Moderate 6-25 bpm (02/13/2016 10:14:Aida Mills RN) Variability Baby A: Moderate 6-25 bpm (02/13/2016 10:00:Aida Mills RN) Variability Baby A: Moderate 6-25 bpm (02/13/2016 09:45:Aida Mills RN) Variability Baby A: Moderate 6-25 bpm (02/13/2016 09:30:Aida Mills RN) Variability Baby A: Moderate 6-25 bpm (02/13/2016 09:15:Aida Mills RN) Variability Baby A: Moderate 6-25 bpm (02/13/2016 09:00:Aida Mills RN) Variability Baby A: Moderate 6-25 bpm (02/13/2016 08:45:Aida Mills RN) Variability Baby A: Moderate 6-25 bpm (02/13/2016 08:30:Aida Mills RN) Variability Baby A: Moderate 6-25 bpm (02/13/2016 08:15:Aida Mills RN) Variability Baby A: Moderate 6-25 bpm (02/13/2016 08:02:Aida Mills RN) Variability Baby A: Moderate 6-25 bpm (02/13/2016 07:30:Aida Mills RN) Accelerations Baby A: None (02/13/2016 16:55:Aida Mills RN) Accelerations Baby A: None (02/13/2016 16:45:Aida Mills RN) Accelerations Baby A: None (02/13/2016 16:30:Aida Mills RN) Accelerations Baby A: None (02/13/2016 16:15:Aida Mills RN) Accelerations Baby A: None (02/13/2016 16:00:Aida Mills RN) Accelerations Baby A: 15X15 (02/13/2016 15:46:Aida Mills RN) Accelerations Baby A: 15X15 (02/13/2016 15:30:Aida Mills RN) Accelerations Baby A: 15X15 (02/13/2016 15:14:Aida Mills RN) Accelerations Baby A: None (02/13/2016 15:02:Aida Mills RN) Accelerations Baby A: 10X10 (02/13/2016 14:45:Adia Mills RN) Accelerations Baby A: 15X15 (02/13/2016 14:30:Aida Mills RN) Accelerations Baby A: None (02/13/2016 14:15:Aida Mills RN) Accelerations Baby A: 15X15 (02/13/2016 14:02:Aida Mills RN) Accelerations Baby A: 15X15 (02/13/2016 13:30:Aida Mills RN) Accelerations Baby A: 15X15 (02/13/2016 13:15:Aida Mills RN) Accelerations Baby A: 15X15 (02/13/2016 13:00:Aida Mills RN) Accelerations Baby A: 15X15 (02/13/2016 12:45:Aida Mills RN) Accelerations Baby A: 15X15 (02/13/2016 12:30:Aida Mills RN) Accelerations Baby A: 15X15 (02/13/2016 12:15:Aida Mills RN) Accelerations Baby A: 15X15 (02/13/2016 12:00:Aida Mills RN) Accelerations Baby A: None (02/13/2016 11:45:Aida Mills RN) Accelerations Baby A: 15X15 (02/13/2016 11:30:Aida Mills RN) Accelerations Baby A: 15X15 (02/13/2016 11:15:Aida Mills RN) Accelerations Baby A: 15X15 (02/13/2016 11:00:Aida Mills RN) Accelerations Baby A: 15X15 (02/13/2016 10:45:Aida Mills RN) Accelerations Baby A: 15X15 (02/13/2016 10:30:Aida Mills RN) Accelerations Baby A: 15X15 (02/13/2016 10:14:Aida Mills RN) Accelerations Baby A: 15X15 (02/13/2016 10:00:Aida Mills RN) Accelerations Baby A: 15X15 (02/13/2016 09:45:Aida Mills RN) Accelerations Baby A: 15X15 (02/13/2016 09:30:Aida Mills RN) Accelerations Baby A: 10X10 (02/13/2016 09:15:Aida Mills RN) Accelerations Baby A: 15X15 (02/13/2016 09:00:Aida Mills RN) Accelerations Baby A: 15X15 (02/13/2016 08:45:Aida Mills RN) Accelerations Baby A: 15X15 (02/13/2016 08:30:Aida Mills RN) Accelerations Baby A: 15X15 (02/13/2016 08:15:Aida Mills RN) Accelerations Baby A: 15X15 (02/13/2016 08:02:Aida Mills RN) Accelerations Baby A: 15X15 (02/13/2016 07:30:Aida Mills RN) Decelerations Baby A: Variable (02/13/2016 16:55:Aida Mills RN) Decelerations Baby A: Variable (02/13/2016 16:45:Aida Mills RN) Decelerations Baby A: Variable (02/13/2016 16:30:Aida Mills RN) Decelerations Baby A: Variable (02/13/2016 16:15:Aida Mills RN) Decelerations Baby A: Early; Variable (02/13/2016 16:00:Aida Mills RN) Decelerations Baby A: Early (02/13/2016 15:46:Aida Mills RN) Decelerations Baby A: Early (02/13/2016 15:30:Aida Mills RN) Decelerations Baby A: Early (02/13/2016 15:14:Aida Mills RN) Decelerations Baby A: Early (02/13/2016 15:02:Aida Mills RN) Decelerations Baby A: Early (02/13/2016 14:45:Aida Mills RN) Decelerations Baby A: Early (02/13/2016 14:30:Aida Mills RN) Decelerations Baby A: Early; Prolonged (02/13/2016 14:15:Aida Mills RN) Decelerations Baby A: None (02/13/2016 14:02:Aida Mills RN) Decelerations Baby A: None (02/13/2016 13:30:Aida Mills RN) Decelerations Baby A: None (02/13/2016 13:15:Aida Mills RN) Decelerations Baby A: None (02/13/2016 13:00:Aida Mills RN) Decelerations Baby A: None (02/13/2016 12:45:Aida Mills RN) Decelerations Baby A: None (02/13/2016 12:30:Aida Mills RN) Decelerations Baby A: None (02/13/2016 12:15:Aida Mills RN) Decelerations Baby A: None (02/13/2016 12:00:Aida Mills RN) Decelerations Baby A: None (02/13/2016 11:45:Aida Mills RN) Decelerations Baby A: None (02/13/2016 11:30:Aida Mills RN) Decelerations Baby A: None (02/13/2016 11:15:Aida Mills RN) Decelerations Baby A: None (02/13/2016 11:00:Aida Mills RN) Decelerations Baby A: None (02/13/2016 10:45:Aida Mills RN) Decelerations Baby A: None (02/13/2016 10:30:Aida Mills RN) Decelerations Baby A: None (02/13/2016 10:14:Aida Mills RN) Decelerations Baby A: None (02/13/2016 10:00:Aida Mills RN) Decelerations Baby A: None (02/13/2016 09:45:Aida Mills RN) Decelerations Baby A: None (02/13/2016 09:30:Aida Mills RN) Decelerations Baby A: None (02/13/2016 09:15:Aida Mills RN) Decelerations Baby A: None (02/13/2016 09:00:Aida Mills RN) Decelerations Baby A: None (02/13/2016 08:45:Aida Mills RN) Decelerations Baby A: None (02/13/2016 08:30:Aida Mills RN) Decelerations Baby A: None (02/13/2016 08:15:Aida Mills RN) Decelerations Baby A: None (02/13/2016 08:02:Aida Mills RN) Decelerations Baby A: None (02/13/2016 07:30:Aida Mills RN) ADDITIONAL COMMENTS Assessment Flag: Admission Assessment (02/13/2016 07:30:QS system process)
[2016-02-14] MEDS: IBUPROFEN 800 MG TABLET PO SCH ×3 (05:07→21:04)
--- NOTE | 2016-02-14 06:22 | L&D Current Admission ---
Current Admit Datetime Report Generated by CPN: 02/14/2016 06:00 ADMISSION INFORMATION Current Admit Date/Time: 02/13/2016 07:47 (02/13/2016 07:47:Aida Mills RN) Reason for Admission: Induction of Labor (02/13/2016 07:47:Aida Mills RN) Chief Complaint: Scheduled Induction of Labor (02/13/2016 07:30:Aida Mills RN) EGA per Dates: 40.6 (02/13/2016 07:47:QS system process) Method of Arrival: Ambulatory (02/13/2016 07:47:Aida Mills RN) Reason for Induction: Postterm (02/13/2016 07:47:Aida Mills RN) Records Available: Yes (02/13/2016 07:47:Aida Mills RN) General Admission Information: Reviewed (02/13/2016 07:47:Aida Mills RN) BELONGINGS/ADVANCED DIRECTIVES Valuables/Personal Effects: Cell Phone (02/13/2016 07:47:Aida Mills RN) Other Belongings: SEE VALUABLES CONSENT (02/13/2016 07:47:Aida Mills RN) Disposition of Belongings: Kept with Patient (02/13/2016 07:47:Aida Mills RN) Advance Direct for Healthcare: No, and Wants No Information (02/13/2016 07:47:Aida Mills RN) Indicate Intent if Not With Pt: RECEIVED IN REGISTRATION (02/13/2016 07:47:Aida Mills RN) Durable Power of Line Maintainer: No (02/13/2016 07:47:Aida Mills RN) Living Will: No (02/13/2016 07:47:Aida Mills RN) Organ Donor: Yes (02/13/2016 07:47:Aida Mills RN) Pt Rights Information Given: Yes (02/13/2016 07:47:Aida Mills RN) Pt Understands Pt Rights: Yes (02/13/2016 07:47:Aida Mills RN) LEARNING ASSESSMENT Knowledge Level: Understands L_D Process; Understands Care Activities; Understands Diagnosis (02/13/2016 07:47:Aida Mills RN) Barriers to Learning: None (02/13/2016 07:47:Aida Mills RN) Learning Readiness: Motivated (02/13/2016 07:47:Aida Mills RN) Learns Best By: 1 to 1 Instruction; Reading; Videos; Demonstration (02/13/2016 07:47:Aida Mills RN) Learning Needs: Labor and Delivery Process; Pain Management; Symptoms to Report; Treatment Plan; Medication; Diagnosis; Nutrition; Equipment; Infant Care; Community Resources (02/13/2016 07:47:Aida Mills RN) DOMESTIC VIOLANCE SCREENING Dom Viol Threatened/Hurt: No (02/13/2016 07:47:Aida Mills RN) Hx of Abuse/Neglect past 2yrs: No (02/13/2016 07:47:Aida Mills RN) Feel Unsafe Going Home: No (02/13/2016 07:47:Aida Mills RN) Addt'l Observ Indicating Abuse: No (02/13/2016 07:47:Aida Mills RN) Reason Unable to Complete Screen: N/A, Screen Completed (02/13/2016 07:47:Aida Mills RN) Considered Personal Harm/Suicide: No (02/13/2016 07:47:Aida Mills RN) NUTRITIONAL/FUNCTIONAL SCREENING Problem with Appetite >5 Days: No (02/13/2016 07:47:iAda Mills RN) Chew/Swallow Difficulties: No (02/13/2016 07:47:Aida Mills RN) Inappropriate Wt Gain/Loss: No (02/13/2016 07:47:Aida Mills RN) Presence Skin Breakdown/Ulcer: No (02/13/2016 07:47:Aida Mills RN) Special Diet: No (02/13/2016 07:47:Aida Mills RN) Pt Requests In House Cra Visit: No (02/13/2016 07:47:Aida Mills RN) Hx of Any of the Following?: N/A (02/13/2016 07:47:Aida Mills RN) New Diagnosis of: N/A (02/13/2016 07:47:Aida Mills RN) Requires Assist w/Ambulation: No (02/13/2016 07:47:Aida Mills RN) Uses Assist Device to Ambulate: No (02/13/2016 07:47:Aida Mills RN) Pt Requires Help w/ADL's: No (02/13/2016 07:47:Aida Mills RN)
--- NOTE | 2016-02-14 06:23 | L&D General Admission ---
General Admit Datetime Report Generated by CPN: 02/14/2016 06:00 INFORMATION Patient Age: 31 (02/13/2016 06:37:QS system process) EDC: 02/07/2016 00:00 (02/13/2016 06:42:Jonna Lei RN) : 4 (02/13/2016 06:42:Jonna Lei RN) Para: 2 (02/13/2016 06:42:Jonna Lei RN) Term: 2 (02/13/2016 06:42:Jonna Lei RN) : 0 (02/13/2016 06:42:Jonna Lei RN) Spontaneous Abortions: 1 (02/13/2016 06:42:Jonna Lei RN) Induced Abortions: 0 (02/13/2016 06:42:Jonna Lei RN) Livin (02/13/2016 06:42:Jonna Lei RN) Cesareans: 0 (02/13/2016 06:42:Jonna Lei RN) VBACs: 0 (02/13/2016 06:42:Jonna Lei RN) Ectopic: 0 (02/13/2016 06:42:Jonna Lei RN) Multiple Births: 0 (02/13/2016 06:42:Jonna Lei RN) Baby, Number in Womb: 1 (02/13/2016 06:42:Jonna Lei RN) CARE Primary Hides And Skins Colorer: [facility] (02/13/2016 06:42:Jonna Lei RN) Adequate Care: Yes (02/13/2016 06:42:Aida Mills RN) Height (in): 66 (02/13/2016 20:14:QS system process) ALLERGIES Medication Allergy: No (02/13/2016 06:42:Jonna Lei RN) Medication Allergies: No Known Drug Allergies (02/13/2016) (02/13/2016 06:51:QS system process) Food Allergies: NONE (02/13/2016 06:42:Aida Mills RN) Environmental Allergies: NONE (02/13/2016 06:42:Aida Mills RN) COMMUNICATION Primary Language: Japanese (02/13/2016 06:42:Aida Mills RN) Medical Tx Preferred Language: Japanese (02/13/2016 06:42:Aida Mills RN) Communication Barrier(s): None (02/13/2016 06:42:Aida Mills RN) DEMOGRAPHICS Address: [address] [place] [id number] (02/13/2016 06:37:QS system process) Zipcode: [address] (02/13/2016 06:37:QS system process) Home (02/13/2016 06:37:QS system process) SSN: [id number] (02/13/2016 06:37:QS system process) Next of Kin Name: CHRISTINAROSELYN PALACIOS (02/13/2016 06:37:QS system process) Next of Kin (02/13/2016 06:37:QS system process) Next of Kin Relationship: SPO (02/13/2016 06:37:QS system process) Date of : 1985 (02/13/2016 06:37:QS system process) Marital Status: Single (02/13/2016 06:37:QS system process) Sex: Female (02/13/2016 06:37:QS system process) Race: (02/13/2016 06:37:QS system process) Ethnicity: Non- or (02/13/2016 06:37:QS system process) Gnosticist: Confucianist (02/13/2016 06:37:QS system process) DRUG AND ALCOHOL USE Alcohol: No (02/13/2016 06:42:Aida Mills RN) Cigarettes: Never Smoker. [id number] (02/13/2016 06:42:Aida Mills RN) Marijuana: No (02/13/2016 06:42:Aida Mills RN) Cocaine: No (02/13/2016 06:42:Aida Mills RN) Other Illicit Drugs: No (02/13/2016 06:42:Aida Mills RN) VACCINE HISTORY Influenza Vaccine: Yes (02/13/2016 06:42:Aida Mills RN) Influenza Date: 12/2015 (02/13/2016 06:42:Aida Mills RN) Pneumococcal Vaccine: No (02/13/2016 06:42:Aida Mills RN) Tetanus Vaccine: Yes (02/13/2016 06:42:Aida Mills RN) Tdap Vaccine: Yes (02/13/2016 06:42:Aida Mills RN) Tdap Date: 01/2016 (02/13/2016 06:42:Aida Mills RN) Hepatitis B Vaccine: Yes (02/13/2016 06:42:Aida Mills RN) Senior Biostatistician/Group Leader: [facility] [place] (02/13/2016 06:42:Aida Mills RN) Feeding Preference: Breast (02/13/2016 06:42:Aida Mills RN) Benefit of Breast Feed Discussed: Yes (02/13/2016 06:42:Aida Mills RN) Circumcision: Yes (02/13/2016 06:42:Aida Mills RN) Classes Attended: No (02/13/2016 06:42:Aida Mills RN) Tubal Ligation: No (02/13/2016 06:42:Aida Mills RN) Tubal Authorization Signed: N/A (02/13/2016 06:42:Aida Mills RN) Consent: N/A (02/13/2016 06:42:Aida Mills RN) Consent Signed: N/A (02/13/2016 06:42:Aida Mills RN) Pain Management Plans: Epidural (02/13/2016 06:42:Aida Mills RN) Plans for Labor and Delivery: None (02/13/2016 06:42:Aida Mills RN) Support Person: CHRISTINA (02/13/2016 06:42:Aida Mills RN) Support Person Relationship: (02/13/2016 06:42:Aida Mills RN) Cultural/Spritual Practice: No (02/13/2016 06:42:Aida Mills RN) Spir/Cult Dietary Needs: No (02/13/2016 06:42:Aida Mills RN) LIVING SITUATION/DISCHARGE PLAN Living Arrangements: House (02/13/2016 06:42:Aida Mills RN) Adequate Access to:: Electric; Heat; Refrigeration; Plumbing/Running water; Phone; Transportation (02/13/2016 06:42:Aida Mills RN) WIC Program: No (02/13/2016 06:42:Aida Mills RN) Discharge Computer Information Systems Instructor Person: CHRISTINA (02/13/2016 06:42:Aida Mills RN) Person to Help after Discharge: ARLIN (02/13/2016 06:42:Aida Mills RN) Currently Using Commun Resources: No (02/13/2016 06:42:Aida Mills RN) Outside Agency/Manager Loan: No (02/13/2016 06:42:Aida Mills RN) Car Seat for Discharge: Yes (02/13/2016 06:42:Aida Mills RN) Adoption Requested: No (02/13/2016 06:42:Aida Mills RN) Pt Contact w/ Post : N/A (02/13/2016 06:42:Aida Mills RN) LABS Blood Type: O Positive (02/13/2016 06:42:Jonna Lei RN) Antibody Screen: Negative (02/13/2016 06:42:Jonna Lei RN) Rho(G) this : Not Applicable (02/13/2016 06:42:Jonna Lei RN) Hemoglobin: 12.5 (02/13/2016 07:14:QS system process) Hematocrit: 36.5 (02/13/2016 07:14:QS system process) MCV: 87 (02/13/2016 07:14:QS system process) Group Beta Strep: Negative (02/13/2016 06:42:Jonna Lei RN) Gonorrhea: Negative (02/13/2016 06:42:Jonna Lei RN) Chlamydia: Negative (02/13/2016 06:42:Jonna Lei RN) RPR/VDRL: Nonreactive (02/13/2016 06:42:Jonna Lei RN) HIV Results: Negative (02/13/2016 06:42:Jonna Lei RN) Hepatitis B: Negative (02/13/2016 06:42:Jonna Lei RN) Rubella: Immune (02/13/2016 06:42:Jonna Lei RN) OB/PREVIOUS HISTORY Previous Procedures: Ultrasound (02/13/2016 06:42:Aida Mills RN) Current Procedures: Ultrasound (02/13/2016 06:42:Aida Mills RN) History of Previous : No (02/13/2016 06:42:Aida Mills RN) History of Gestational Diabetes: No (02/13/2016 06:42:Aida Mills RN) History of PIH: No (02/13/2016 06:42:Aida Mills RN) History of Incompetent Cervix: No (02/13/2016 06:42:Aida Mills RN) History of Placenta Previa/Abrup: No (02/13/2016 06:42:Aida Mills RN) History of Macrosomia: No (02/13/2016 06:42:Aida Mills RN) History of IUGR: No (02/13/2016 06:42:Aida Mills RN) History of Hemorrhage: No (02/13/2016 06:42:Aida Mills RN) History of Loss/Stillborn: No (02/13/2016 06:42:Aida Mills RN) History of : No (02/13/2016 06:42:Aida Mills RN) History of D (Rh) Sensitization: No (02/13/2016 06:42:Aida Mills RN) History Recurrent Loss/Stillborn: No (02/13/2016 06:42:Aida Mills RN) History Depression/PP Depression: No (02/13/2016 06:42:Aida Mills RN) History of Uterine Anomaly/SAUL: No (02/13/2016 06:42:Aida Mills RN) History of Infertility: No (02/13/2016 06:42:Aida Mills RN) History of ART Treatment: No (02/13/2016 06:42:Aida Mills RN) History of SAUL: No (02/13/2016 06:42:Aida Mills RN) MEDICAL HISTORY Med Hx Diabetes: No (02/13/2016 06:42:Aida Mills RN) Med Hx Hypertension: No (02/13/2016 06:42:Aida Mills RN) Med Hx Heart Disease: No (02/13/2016 06:42:Aida Mills RN) Med Hx Autoimmune Disorder: No (02/13/2016 06:42:Aida Mills RN) Med Hx Kidney Disease/UTI: No (02/13/2016 06:42:Aida Mills RN) Med Hx Neurologic/Epilepsy: No (02/13/2016 06:42:Aida Mills RN) Med Hx Psychiatric Disorders: No (02/13/2016 06:42:Aida Mills RN) Med Hx Hepatitis/Liver Disease: No (02/13/2016 06:42:Aida Mills RN) Med Hx Varicosities/Phlebitis: No (02/13/2016 06:42:Aida Mills RN) Med Hx Thyroid Dysfunction: No (02/13/2016 06:42:Aida Mills RN) Med Hx Trauma/Violence: No (02/13/2016 06:42:Aida Mills RN) Med Hx Blood Transfusion: No (02/13/2016 06:42:Aida Mills RN) Med Hx Pulmonary (Asthma,TB): No (02/13/2016 06:42:Aida Mills RN) Med Hx Breast: No (02/13/2016 06:42:Aida Mills RN) Med Hx APPRAISAL MANAGER Surgery: No (02/13/2016 06:42:Aida Mills RN) Med Hx Hospitalization/Surgery: Yes (02/13/2016 06:42:Aida Mills RN) Med Hx Anesthetic Complications: No (02/13/2016 06:42:Aida Mills RN) Med Hx Abnormal Pap Smear: No (02/13/2016 06:42:Aida Mills RN) Other Medical Diseases: No (02/13/2016 06:42:Aida Mills RN) Med Hx Significant Family Hx: No (02/13/2016 06:42:Aida Mills RN) INFECTIOUS HISTORY Inf Hx Gonorrhea: No (02/13/2016 06:42:Aida Mills RN) Inf Hx Chlamydia: No (02/13/2016 06:42:Aida Mills RN) Inf Hx Syphilis: No (02/13/2016 06:42:Aida Mills RN) Inf Hx HIV/AIDS: No (02/13/2016 06:42:Aida Mills RN) Inf Hx Human Papilloma Virus: No (02/13/2016 06:42:Aida Mills RN) Inf Hx Pt/Partner Genital Herpes: No (02/13/2016 06:42:Aida Mills RN) Inf Hx Tuberculosis/Exposure: No (02/13/2016 06:42:Aida Mills RN) Inf Hx Hepatitis B,C: No (02/13/2016 06:42:Aida Mills RN) Inf Hx Rash or Viral Illness: No (02/13/2016 06:42:Aida Mills RN) GENETIC HISTORY Gen Hx Age >=35 at ALEM: No (02/13/2016 06:42:Aida Mills RN) Gen Hx Thalassemia: No (02/13/2016 06:42:Aida Mills RN) Gen Hx Congenital Heart Defect: No (02/13/2016 06:42:Aida Mills RN) Gen Hx Neural Tube Defect: No (02/13/2016 06:42:Aida Mills RN) Gen Hx Down's Syndrome: No (02/13/2016 06:42:Aida Mills RN) Gen Hx Bassem-Sachs: No (02/13/2016 06:42:Aida Mills RN) Gen Hx Ludy: No (02/13/2016 06:42:Aida Mills RN) Gen Hx Familial Dysautonomia: No (02/13/2016 06:42:Aida Mills RN) Gen Hx Sickle Cell Disease/Trait: No (02/13/2016 06:42:Aida Mills RN) Gen Hx Hemophilia/Blood Disorder: No (02/13/2016 06:42:Aida Mills RN) Gen Hx Muscular Dystrophy: No (02/13/2016 06:42:Aida Mills RN) Gen Hx Cystic Fibrosis: No (02/13/2016 06:42:Aida Mills RN) Gen Hx Huntingtons Chorea: No (02/13/2016 06:42:Aida Mills RN) Gen Hx Mental Retardation/Autism: No (02/13/2016 06:42:Aida Mills RN) Gen Hx Tested for Fragile X: No (02/13/2016 06:42:Aida Mills RN) Gen Hx Other Inher/Chromosomal: No (02/13/2016 06:42:Aida Mills RN) Gen Hx Maternal Metabolic DO: No (02/13/2016 06:42:Aida Mills RN) Gen Hx Pt Father or FOB Defect: No (02/13/2016 06:42:Aida Mills RN) Gen Hx Other Genetic History: No (02/13/2016 06:42:Aida Mills RN) Gen Hx Drugs/Meds since LMP: No (02/13/2016 06:42:Aida Mills RN)
--- NOTE | 2016-02-14 07:01 | L&D Flow Sheet ---
LD Flowsheet Datetime Report Generated by CPN: 02/14/2016 07:00 Datetime: 02/13/2016 20:23 Bedside Blood Glucose: 185 H (Annotations: BS reading by S Violet RN, pt ate meal approx 45 minutes prior to BS reading. ) (Crystal Amy, RN) Datetime: 02/13/2016 20:07 NBP Sys/Dianne/Mean (mmHg): 103 (QS system process) : 58 (QS system process) : 77 (QS system process) Pulse: 96 (QS system process) Respirations: 17 (Crystal [place] Rose, RN) Datetime: 02/13/2016 20:06 Pulse: 98 (QS system process) SpO2 (%): 98 (QS system process) Datetime: 02/13/2016 20:01 Pulse: 91 (QS system process) Pulse: 85 (QS system process) SpO2 (%): 93 (Annotations: Slow, deep breathing encouraged ) (Crystal [place] Rose, RN) Datetime: 02/13/2016 19:57 NBP Sys/Dianne/Mean (mmHg): 104 (QS system process) : 56 (QS system process) : 74 (QS system process) Pulse: 75 (QS system process) Respirations: 18 (Julia Reyes, RN) Datetime: 02/13/2016 19:56 Pulse: 78 (QS system process) SpO2 (%): 97 (QS system process) Datetime: 02/13/2016 19:43 NBP Sys/Dianne/Mean (mmHg): 99 (QS system process) : 60 (QS system process) : 73 (QS system process) Pulse: 122 (QS system process) Respirations: 16 (Zaina Sandhu RN) Temperature (F): 98.2 (Zaina Sandhu RN) Temperature (C): 36.8 (QS system process) Temperature Route: Oral (Zaina Sandhu RN) Datetime: 02/13/2016 19:38 NBP Sys/Dianne/Mean (mmHg): 96 (QS system process) : 51 (QS system process) : 66 (QS system process) Pulse: 125 (QS system process) Datetime: 02/13/2016 19:33 NBP Sys/Dianne/Mean (mmHg): 100 (QS system process) : 55 (QS system process) : 72 (QS system process) Pulse: 116 (QS system process) Datetime: 02/13/2016 19:28 NBP Sys/Dianne/Mean (mmHg): 102 (QS system process) : 59 (QS system process) : 76 (QS system process) Pulse: 116 (QS system process) Datetime: 02/13/2016 19:23 NBP Sys/Dianne/Mean (mmHg): 96 (QS system process) : 52 (QS system process) : 67 (QS system process) Pulse: 120 (QS system process) Datetime: 02/13/2016 19:18 NBP Sys/Dianne/Mean (mmHg): 96 (QS system process) : 53 (QS system process) : 71 (QS system process) Pulse: 134 (QS system process) Datetime: 02/13/2016 19:13 NBP Sys/Dianne/Mean (mmHg): 97 (QS system process) : 54 (QS system process) : 69 (QS system process) Pulse: 122 (QS system process) Datetime: 02/13/2016 19:08 NBP Sys/Dianne/Mean (mmHg): 97 (QS system process) : 51 (QS system process) : 72 (QS system process) Pulse: 127 (QS system process) Datetime: 02/13/2016 19:03 Stage of : Recovery (Aida Mills RN) NBP Sys/Dianne/Mean (mmHg): 96 (QS system process) : 53 (QS system process) : 69 (QS system process) Pulse: 122 (QS system process) Respirations: 18 (Aida Mills RN) Pain Scale: 1 (Aida Mills RN) Pain Presence: Constant (Aida Mills RN) Pain Type: Burning; Dull (Aida Mills RN) Pain Location: Perineum (Aida Mills RN) Pain Relief Measures: Comfort Measures (Aida Mills RN)
[2016-02-14 07:24] LABS: HGB HCT DIFFERENCE 0.7; MEAN CORPUSCULAR HEMOGLOBIN 29.8 pg (27.0-33.4); MEAN CORPUSCULAR HGB CONC 34.1 g/dL (32.0-36.0); MEAN CORPUSCULAR VOLUME 88 fl (80-97); RED BLOOD COUNT 2.97 10^6/uL (3.72-5.28); RED CELL DISTRIBUTION WIDTH 13.6 % (11.5-14.0); WHITE BLOOD COUNT 13.3 10^3/uL (4.0-10.5)
[2016-02-14 07:27] LABS: HEMOGLOBIN 8.9 g/dL (12.0-15.5)
[2016-02-14] MEDS: FERROUS SULFATE 325 MG TABLET PO SCH ×2 (10:14→18:37)
[2016-02-14] MEDS: FAMOTIDINE 20 MG TABLET PO SCH ×2 (10:14→21:06)
[2016-02-14] MEDS: DOCUSATE SODIUM 100 MG CAPSULE PO SCH ×2 (10:14→18:37)
[2016-02-14] MEDS: SENNOSIDES/DOCUSATE 8.6-50 MG 1 EACH TABLET PO SCH (10:14)
[2016-02-14] MEDS: PRENATAL VITAMIN W-O CA NO5/FE FUMARATE/FA CAPSULE PO SCH (10:14)
[2016-02-14] MEDS ORDERED: CEFAZOLIN 2 GM/D5W RTU 2 GM/50 ML RTUPB IV ONE (10:30)
--- NOTE | 2016-02-14 12:02 | PDOC PROGRESS REPORT ---
Subjective-OB Subjective: Post Delivery Day: 1 31 year old. Denies any needs at this time, states lochia is stable, pain well controlled, voiding without difficulty. Physical Exam (OB) Vital Signs: Temp Pulse Resp BP Pulse Ox 98.2 F 95 17 101/62 98 02/14/16 08:15 02/14/16 08:15 02/14/16 08:15 02/14/16 08:15 02/14/16 08:15 Intake & Output 02/13/16 02/14/16 02/15/16 06:59 06:59 06:59 Weight 65.7 kg - Lochia Lochia Amount: Small 10-25 ml Lochia Color: Rubra/Red - Abdomen Description: Soft Hernia Present: No Fundal Height: u/u - u/2 Objective-Diagnostic Laboratory: 02/14/16 06:53 02/14/16 06:53 WBC 13.3 H RBC 2.97 L Hgb 8.9 L D Hct 26.0 L MCV 88 MCH 29.8 MCHC 34.1 RDW 13.6 Plt Count 162 Assessment and Plan(PN) - Assessment and Plan (1) Delivery normal Is this a current diagnosis for this admission?: YesPlan: routin pp care (2) Acute blood loss anemia Is this a current diagnosis for this admission?: YesPlan: ferrous sulfate iron rich diet - Time Spent with Patient Time with patient: Less than 15 minutes Critical Time spent with patient: Less than 15 minutes Medications reviewed and adjusted accordingly: Yes - Disposition Anticipated Discharge: Home Within: within 24 hours
--- NOTE | 2016-02-14 13:15 | L&D Care Plan ---
LD CARE PLANS Datetime Report Generated by CPN: 02/14/2016 13:15 Datetime: 02/13/2016 08:57 Pain State: Actual (Aida Mills RN) Related To: Labor and Delivery Process; Complication(s) of ; Treatment and Procedures; Post (Aida Mills RN) Goal(s): Patients Pain will be Assessed and Managed; Patient will Verbalize Adequate Relief of Pain or the Ability to [place] with Current Pain (Aida Mills RN) Interventions: Assess Pain Severity on Scale of 0 (None) to 5 (Severe); Assess Type, Location and Intensity of Pain Each Time Client Reports Discomfort and Notify Provider if Unusal Pain Develops; Encourage Proper Breathing and Relaxation Techniques; Offer Alternatives Such as Repositioning, Calm Environment, Massages, Diversional Activities, Ice Pack, Splinting, and Ambulation; Administer Analgesics as Ordered; Assist with Epidural Placement as Appropriate; Evaluate Therapeutic Effectiveness of Medication and Treatments (Aida Mills RN) Outcome: Patient will Report Absence or Relief of Pain Consistent with Established Pain Goal (Aida Mills RN) Status: Ongoing (Aida Mills RN) Outcome: Patient will have a Decrease in Signs and Symptoms of Discomfort (Aida Mills RN) Outcome: Pain will be Controlled During Procedures (Aida Mills RN) Status: Ongoing (Aida Mills RN) Anxiety State: Risk For (Aida Mills RN) Related To: Labor and Delivery Process; Perceived or Actual Threat to ; Situational Crisis; Significant Life Event (Aida Mills RN) Goal(s): Patient will have Decreased Anxiety and be able to Function at Acceptable Levels (Aida Mills RN) Interventions: Assess Verbal and Nonverbal Behavioral Indicators of Anxiety; Assist Patient to Identify and Verbalize Symptoms of Anxiety; Identify and Demonstrate Techniques to Control Anxiety; Assist Patient with Coping Mechanisms to Manage Anxiety; Provide Theraputic Touch for the Patient; Explain to Patient, Using a Calm Reassuring Approach and Nonmedical Terms, All Activities, Procedures, and Concerns; Instruct Patient and Family about Post Discharge Care, Limitations, Symptoms to Report and Resources Available (Aida Mills RN) Outcome: Patient will Identify, Verbalize and Demonstrate Techniques to Control Anxiety (Aida Mills RN) Status: Ongoing (Aida Mills RN) Outcome: Patient's Posture, Facial Expressions, Gestures and Activity Level will Reflect Decreased Anxiety (Aida Mills RN) Status: Ongoing (Aida Mills RN) Outcome: Patient will Verbalize a Sense of Control and/or Acceptance of the Situation (Aida Mills RN) Status: Ongoing (Aida Mills RN) Outcome: Patient will Identify and Utilize Support Person (Aida Mills RN) Status: Ongoing (Aida Mills RN) Knowledge Deficit State: Risk For (Aida Mills RN) Related To: Labor and Delivery Process; Treatment and Procedures; Impending Alterations in Family Dynamics (Aida Mills RN) Goal(s): Patient will Accurately Verbalize Understanding of Plan of Care and Treatment; Patient and Family will Accurately Verbalize Understanding of the Disease Process (Aida Mills RN) Interventions: Assess Motivation and Willingness of Patient/Family to Learn; Assess Preferred Learning Mode: One to One Instruction, Reading, Videos, Group Discussion or Demonstration; Assess Barriers to Learning: Pain, Emotional State, Language Barrier, Cognitive Impairment, Visual or Hearing Deficits; Assess Patient and Family Knowledge of Disease Process, Medications and Treatment; Discuss Therapy and/or Treatment Options, Describe Rationale Behind Management, Therapy and Treatment Recommendations; Instruct Patient and Family on Signs and Symptoms to Report; Instruct Patient and Family on Medication Effects and Side Effects; Provide Appropriate and Timely Education Using Multiple Techniques; Provide Patient and Family with Support Group Information and Resources; Give Clear and Thorough Explanations and Demonstrations (Aida Mills RN) Outcome: Patient and Family will Verbalize Understanding of Condition, Treatment and Signs and Symptoms to Report (Aida Mills RN) Status: Ongoing (Aida Mills RN) Outcome: Patient will Identify Perceived Learning Needs and Express Motivation to Learn (Aida Mills RN) Status: Ongoing (Aida Mills RN) Outcome: Patient will Verbalize Understanding of Desired Content, and/or Performs Desired Skill Prior to Discharge (Aida Mills RN) Status: Ongoing (Aida Mills RN) Infection State: Risk For (Aida Mills RN) Related To: Prolonged Labor or Induction; Premature/Prolonged Rupture of Membranes; Invasive Procedures (Aida Mills RN) Goal(s): The Patient will be Free of Infection, Vital Signs Stable and Lab Work within Normal Parameters (Aida Mills RN) Interventions: Instruct and Reinforce Proper Handwashing, Hygiene, and Care Techniques to Patient and Family; Monitor Vital Signs; Monitor Patient for the Following Signs of Infection: Fever, Abdominal Tenderness, Unusual Discharge; Monitor Aminiotic Fluid, Urine and Lochia for Color and Odor; Observe Wounds, Incisions and Invasive Line Sites for Redness, Drainage and Edema; Assess IV Sites per Hospital Policy; Monitor Lab and Test Results and Notify Provider of Abnormal Findings; Assess Nutritional Status and Promote Good Nutrition (Aida Mills RN) Outcome: Patient will Remain Free of Infection (Aida Mills RN) Status: Ongoing (Aida Mills RN) Outcome: Infection will be Recognized Early to Allow for Prompt Treatment (Aida Mills RN) Status: Ongoing (Aida Mills RN) Outcome: Patient will have Vital Signs Within Expected Range (Aida Mills RN) Status: Ongoing (Aida Mills RN) Fluid Volume State: Risk For (Aida Mills RN) Related To: Prolonged Labor or Induction; Anesthesia (Aida Mills RN) Goal(s): Patient will Achieve and Maintain a Balanced Fluid Volume Status; Hemodynamically Stable (Aida Mills RN) Interventions: Monitor Vital Signs; Auscultate Breath Sounds; Monitor Patient for Skin Turgor, Mucous Membranes, Dry Skin, Weakness, Headaches and Confusion; Provide Oral Fluids as Ordered; Initiate and Maintain Intravenous Fluids as Ordered; Monitor Intake and Output as Indicated Per Patient Status; Accurately Measure Blood Loss; Monitor Lab and Test Results as Obtained and Notify Provider of Abnormal Findings; Monitor Patient's Weight (Aida Mills RN) Outcome: Patient will have Clear Lung Sounds (Aida Mills RN) Status: Ongoing (Aida Mills RN) Outcome: Patient will have Vital Signs within Expected Range (Aida Mills RN) Status: Ongoing (Aida Mills RN) Outcome: Urine Output will be within Expected Range (Aida Mills RN) Status: Ongoing (Aida Milsl RN) Outcome: Patient will have Minimal Generalized or Upper Extremity Edema (Aida Mills RN) Status: Ongoing (Aida Mills RN) Injury State: Risk For (Aida Mills RN) Related To: Labor and Delivery Process; Anesthesia; Risk to Status; Uteroplacental Perfusion; Decreased Mobility; Hemorrhage, Placenta Previa and or Placental Abruption (Aida Mills RN) Goal(s): Patient will Remain Free from Injury (Aida Mills RN) Interventions: Monitoring as per Hospital Protocol; Assess Neurological Status; Perform Risk Assessment of Patients with Induction and ; Perform Fall Risk Assessment and Prevention per Hospital Protocol; Perform DVT Risk Assessment and Prophylaxis per Hospital Protocol; Ensure that Oxygen, Suction, and Resuscitation Medications and Equipment are Readily Available; Confirm Patient ID Prior to Procedure(s) and Medication Administration per Hospital Policy (Aida Mills RN) Outcome: Successful Fall Risk Prevention (Aida Mills RN) Status: Ongoing (Aida Mills RN) Outcome: Patient will Deliver without Adverse Sequela (Aida Mills RN) Status: Ongoing (Aida Mills RN) Outcome: Patient's Neurological Status will Remain Stable (Aida Mills RN) Status: Ongoing (Aida Mills RN) Impaired Skin Integrity State: Risk For (Aida Mills RN) Related To: Vaginal Delivery; Invasive Procedures (Aida Mills RN) Goal(s): Patient will Maintain Optimal Skin Integrity, Free of Breakdown, Injury or Infection (Aida Mills RN) Interventions: Complete Screening for Pressure Ulcer Risk and Initiate Protocol per Hospital Policy; Monitor Site of Skin Impairment for Color Changes, Redness, Swelling, Warmth, Pain or Other Signs of Infection; Encourage and Assist with Position Changes; Monitor Patient's Mobility Status; Provide Adequate Nutrition and Fluids; Teach Patient Appropriate Hygienic Care; Teach Patient/Family Skin Care Management (Aida Mills RN) Outcome: Patient will not have Evidence of Injury Such as Skin Breakdown, Scrapes, Cuts, or Bruising (Aida Mills RN) Status: Ongoing (Aida Mills RN) Outcome: Patient will Report Any Altered Sensation or Pain at Site of Skin Impairment (Aida Mills RN) Status: Ongoing (Aida Mills RN) Outcome: Patients Incisions and Wounds will be without Signs or Symptoms of Infection (Aida Mills, [place]) Status: Ongoing (Aida Mills RN) Outcome: Patient will Demonstrate Understanding of Plan to Heal Skin and Prevent Reinjury and Verbalize Risk Factors (Aida Mills RN) Status: Ongoing (Aida Mills RN) Nutrition State: Risk For (Aida Mills RN) Related To: ; (Aida Mills, [place]) Goal(s): Patient will have an Intake of Nutrients Sufficient to Meet Metabolic Needs (Aida Mills RN) Interventions: Nutritional Screening and Assessment per Hospital Policy; Consult Transaction Advisory Services Manager for Further Assessment and Recommendations Regarding Food Preferences and Nutritional Support; Allow Patient to Plan and Order Diet when Possible; Monitor Laboratory Values That Indicate Nutritional Well-being; Consult Stand Grinder for Nutritional Support Regarding Requirements; Document Actual Weight Initially and Weekly (Do Not Estimate); Encourage Patient Participation in Maintaining a Food Log as Indicated; Educate Patient on the Importance of Maintaining an Adequate Caloric Intake (Aida Mills RN) Outcome: Patient will Receive Adequate Calories and Fluid Volume to Meet Metabolic Needs (Aida Mills RN) Status: Ongoing (Aida Mills RN) Outcome: Patient will Select Foods or Meals that Support Adequate Nutrition (Aida Mills RN) Status: Ongoing (Aida Mills RN)
[2016-02-15] MEDS: ACETAMINOPHEN WITH CODEINE #3 TABLET PO PRN ×2 (04:10→08:43)
[2016-02-15] MEDS: IBUPROFEN 800 MG TABLET PO SCH (05:16)
--- NOTE | 2016-02-15 06:22 | L&D General Admission ---
General Admit Datetime Report Generated by CPN: 02/15/2016 06:00 INFORMATION Patient Age: 31 (02/13/2016 06:37:QS system process) EDC: 02/07/2016 00:00 (02/13/2016 06:42:Jonna Lei RN) : 4 (02/13/2016 06:42:Jonna Lei RN) Para: 2 (02/13/2016 06:42:Jonna Lei RN) Term: 2 (02/13/2016 06:42:Jonna Lei RN) : 0 (02/13/2016 06:42:Jonna Lei RN) Spontaneous Abortions: 1 (02/13/2016 06:42:Jonna Lei RN) Induced Abortions: 0 (02/13/2016 06:42:Jonna Lei RN) Livin (02/13/2016 06:42:Jonna Lei RN) Cesareans: 0 (02/13/2016 06:42:Jonna Lei RN) VBACs: 0 (02/13/2016 06:42:Jonna Lei RN) Ectopic: 0 (02/13/2016 06:42:Jonna Lei RN) Multiple Births: 0 (02/13/2016 06:42:Jonna Lei RN) Baby, Number in Womb: 1 (02/13/2016 06:42:Jonna Lei RN) CARE Primary Web User Experience Strategist: [facility] (02/13/2016 06:42:Jonna Lei RN) Adequate Care: Yes (02/13/2016 06:42:Aida Mills RN) Height (in): 66 (02/14/2016 15:49:QS system process) ALLERGIES Medication Allergy: No (02/13/2016 06:42:Jonna Lei RN) Medication Allergies: No Known Drug Allergies (02/13/2016) (02/13/2016 06:51:QS system process) Food Allergies: NONE (02/13/2016 06:42:Aida Mills RN) Environmental Allergies: NONE (02/13/2016 06:42:Aida Mills RN) COMMUNICATION Primary Language: Vietnamese (02/13/2016 06:42:Aida Mills RN) Medical Tx Preferred Language: Vietnamese (02/13/2016 06:42:Aida Mills RN) Communication Barrier(s): None (02/13/2016 06:42:Aida Mills RN) DEMOGRAPHICS Address: [address] [place] [id number] (02/13/2016 06:37:QS system process) Zipcode: [address] (02/13/2016 06:37:QS system process) Home (02/13/2016 06:37:QS system process) SSN: [id number] (02/13/2016 06:37:QS system process) Next of Kin Name: CHRISTINAROSELYN PALACIOS (02/13/2016 06:37:QS system process) Next of Kin (02/13/2016 06:37:QS system process) Next of Kin Relationship: SPO (02/13/2016 06:37:QS system process) Date of : 1985 (02/13/2016 06:37:QS system process) Marital Status: Single (02/13/2016 06:37:QS system process) Sex: Female (02/13/2016 06:37:QS system process) Race: (02/13/2016 06:37:QS system process) Ethnicity: Non- or (02/13/2016 06:37:QS system process) Yarsanism: Cheondoism (02/13/2016 06:37:QS system process) DRUG AND ALCOHOL USE Alcohol: No (02/13/2016 06:42:Aida Mills RN) Cigarettes: Never Smoker. [id number] (02/13/2016 06:42:Aida Mills RN) Marijuana: No (02/13/2016 06:42:Aida Mills RN) Cocaine: No (02/13/2016 06:42:Aida Mills RN) Other Illicit Drugs: No (02/13/2016 06:42:Aida Mills RN) VACCINE HISTORY Influenza Vaccine: Yes (02/13/2016 06:42:Aida Mills RN) Influenza Date: 12/2015 (02/13/2016 06:42:Aida Mills RN) Pneumococcal Vaccine: No (02/13/2016 06:42:Aida Mills RN) Tetanus Vaccine: Yes (02/13/2016 06:42:Aida Mills RN) Tdap Vaccine: Yes (02/13/2016 06:42:Aida Mills RN) Tdap Date: 01/2016 (02/13/2016 06:42:Aida Mills RN) Hepatitis B Vaccine: Yes (02/13/2016 06:42:Aida Mills RN) Warp Tier: [facility] (02/13/2016 06:42:Aida Mills RN) Feeding Preference: Breast (02/13/2016 06:42:Aida Mills RN) Benefit of Breast Feed Discussed: Yes (02/13/2016 06:42:Aida Mills RN) Circumcision: Yes (02/13/2016 06:42:Aida Mills RN) Classes Attended: No (02/13/2016 06:42:Aida Mills RN) Tubal Ligation: No (02/13/2016 06:42:Aida Mills RN) Tubal Authorization Signed: N/A (02/13/2016 06:42:Aida Mills RN) Consent: N/A (02/13/2016 06:42:Aida Mills RN) Consent Signed: N/A (02/13/2016 06:42:Aida Mills RN) Pain Management Plans: Epidural (02/13/2016 06:42:Aida Mills RN) Plans for Labor and Delivery: None (02/13/2016 06:42:Aida Mills RN) Support Person: CHRISTINA (02/13/2016 06:42:Aida Mills RN) Support Person Relationship: (02/13/2016 06:42:Aida Mills RN) Cultural/Spritual Practice: No (02/13/2016 06:42:Aida Mills RN) Spir/Cult Dietary Needs: No (02/13/2016 06:42:Aida Mills RN) LIVING SITUATION/DISCHARGE PLAN Living Arrangements: House (02/13/2016 06:42:Aida Mills RN) Adequate Access to:: Electric; Heat; Refrigeration; Plumbing/Running water; Phone; Transportation (02/13/2016 06:42:Aida Mills RN) WIC Program: No (02/13/2016 06:42:Aida Mills RN) Discharge Hemmer Lockstitch Person: CHRISTINA (02/13/2016 06:42:Aida Mills RN) Person to Help after Discharge: ARLIN (02/13/2016 06:42:Aida Mills RN) Currently Using Commun Resources: No (02/13/2016 06:42:Aida Mills RN) Outside Agency/Green Building [employer] Distributor: No (02/13/2016 06:42:Aida Mills RN) Car Seat for Discharge: Yes (02/13/2016 06:42:Aida Mills RN) Adoption Requested: No (02/13/2016 06:42:Aida Mills RN) Pt Contact w/ Post : N/A (02/13/2016 06:42:Aida Mills RN) LABS Blood Type: O Positive (02/13/2016 06:42:Jonna Lei RN) Antibody Screen: Negative (02/13/2016 06:42:Jonna Lei RN) Rho(G) this : Not Applicable (02/13/2016 06:42:Jonna Lei RN) Hemoglobin: 8.9 L (02/14/2016 06:53:QS system process) Hematocrit: 26.0 L (02/14/2016 06:53:QS system process) MCV: 88 (02/14/2016 06:53:QS system process) Group Beta Strep: Negative (02/13/2016 06:42:Jonna Lei RN) Gonorrhea: Negative (02/13/2016 06:42:Jonna Lei RN) Chlamydia: Negative (02/13/2016 06:42:Jonna Lei RN) RPR/VDRL: Nonreactive (02/13/2016 06:42:Jonna Lei RN) HIV Results: Negative (02/13/2016 06:42:Jonna Lei RN) Hepatitis B: Negative (02/13/2016 06:42:Jonna Lei RN) Rubella: Immune (02/13/2016 06:42:Jonna Lei RN) OB/PREVIOUS HISTORY Previous Procedures: Ultrasound (02/13/2016 06:42:Aida Mills RN) Current Procedures: Ultrasound (02/13/2016 06:42:Aida Mills RN) History of Previous : No (02/13/2016 06:42:Aida Mills RN) History of Gestational Diabetes: No (02/13/2016 06:42:Aida Mills RN) History of PIH: No (02/13/2016 06:42:Aida Mills RN) History of Incompetent Cervix: No (02/13/2016 06:42:Aida Mills RN) History of Placenta Previa/Abrup: No (02/13/2016 06:42:Aida Mills RN) History of Macrosomia: No (02/13/2016 06:42:Aida Mills RN) History of IUGR: No (02/13/2016 06:42:Aida Mills RN) History of Hemorrhage: No (02/13/2016 06:42:Aida Mills RN) History of Loss/Stillborn: No (02/13/2016 06:42:Aida Mills RN) History of : No (02/13/2016 06:42:Aida Mills RN) History of D (Rh) Sensitization: No (02/13/2016 06:42:Aida Mills RN) History Recurrent Loss/Stillborn: No (02/13/2016 06:42:Aida Mills RN) History Depression/PP Depression: No (02/13/2016 06:42:Aida Mills RN) History of Uterine Anomaly/SAUL: No (02/13/2016 06:42:Aida Mills RN) History of Infertility: No (02/13/2016 06:42:Aida Mills RN) History of ART Treatment: No (02/13/2016 06:42:Aida Mills RN) History of SAUL: No (02/13/2016 06:42:Aida Mills RN) MEDICAL HISTORY Med Hx Diabetes: No (02/13/2016 06:42:Aida Mills RN) Med Hx Hypertension: No (02/13/2016 06:42:Aida Mills RN) Med Hx Heart Disease: No (02/13/2016 06:42:Aida Mills RN) Med Hx Autoimmune Disorder: No (02/13/2016 06:42:Aida Mills RN) Med Hx Kidney Disease/UTI: No (02/13/2016 06:42:Aida Mills RN) Med Hx Neurologic/Epilepsy: No (02/13/2016 06:42:Aida Mills RN) Med Hx Psychiatric Disorders: No (02/13/2016 06:42:Aida Mills RN) Med Hx Hepatitis/Liver Disease: No (02/13/2016 06:42:Aida Mills RN) Med Hx Varicosities/Phlebitis: No (02/13/2016 06:42:Aida Mills RN) Med Hx Thyroid Dysfunction: No (02/13/2016 06:42:Aida Mills RN) Med Hx Trauma/Violence: No (02/13/2016 06:42:Aida Mills RN) Med Hx Blood Transfusion: No (02/13/2016 06:42:Aida Mills RN) Med Hx Pulmonary (Asthma,TB): No (02/13/2016 06:42:Aida Mills RN) Med Hx Breast: No (02/13/2016 06:42:Aida Mills RN) Med Hx BAND LEADER Surgery: No (02/13/2016 06:42:Aida Mills RN) Med Hx Hospitalization/Surgery: Yes (02/13/2016 06:42:Aida Mills RN) Med Hx Anesthetic Complications: No (02/13/2016 06:42:Aida Mills RN) Med Hx Abnormal Pap Smear: No (02/13/2016 06:42:Aida Mills RN) Other Medical Diseases: No (02/13/2016 06:42:Aida Mills RN) Med Hx Significant Family Hx: No (02/13/2016 06:42:Aida Mills RN) INFECTIOUS HISTORY Inf Hx Gonorrhea: No (02/13/2016 06:42:Adia Mills RN) Inf Hx Chlamydia: No (02/13/2016 06:42:Aida Mills RN) Inf Hx Syphilis: No (02/13/2016 06:42:Aida Mills RN) Inf Hx HIV/AIDS: No (02/13/2016 06:42:Aida Mills RN) Inf Hx Human Papilloma Virus: No (02/13/2016 06:42:Aida Mills RN) Inf Hx Pt/Partner Genital Herpes: No (02/13/2016 06:42:Aida Mills RN) Inf Hx Tuberculosis/Exposure: No (02/13/2016 06:42:Aida Mills RN) Inf Hx Hepatitis B,C: No (02/13/2016 06:42:Aida Mills RN) Inf Hx Rash or Viral Illness: No (02/13/2016 06:42:Aida Mills RN) GENETIC HISTORY Gen Hx Age >=35 at ALEM: No (02/13/2016 06:42:Aida Mills RN) Gen Hx Thalassemia: No (02/13/2016 06:42:Aida Mills RN) Gen Hx Congenital Heart Defect: No (02/13/2016 06:42:Aida Mills RN) Gen Hx Neural Tube Defect: No (02/13/2016 06:42:Aida Mills RN) Gen Hx Down's Syndrome: No (02/13/2016 06:42:Aida Mills RN) Gen Hx Bassem-Sachs: No (02/13/2016 06:42:Aida Mills RN) Gen Hx Ludy: No (02/13/2016 06:42:Aida Mills RN) Gen Hx Familial Dysautonomia: No (02/13/2016 06:42:Aida Mills RN) Gen Hx Sickle Cell Disease/Trait: No (02/13/2016 06:42:Aida Mills RN) Gen Hx Hemophilia/Blood Disorder: No (02/13/2016 06:42:Aida Mills RN) Gen Hx Muscular Dystrophy: No (02/13/2016 06:42:Aida Mills RN) Gen Hx Cystic Fibrosis: No (02/13/2016 06:42:Aida Mills RN) Gen Hx [place] Chorea: No (02/13/2016 06:42:Aida Mills RN) Gen Hx Mental Retardation/Autism: No (02/13/2016 06:42:Aida Mills RN) Gen Hx Tested for Fragile X: No (02/13/2016 06:42:Aida Mills RN) Gen Hx Other Inher/Chromosomal: No (02/13/2016 06:42:Aida Mills RN) Gen Hx Maternal Metabolic DO: No (02/13/2016 06:42:Aida Mills RN) Gen Hx Pt Father or FOB Defect: No (02/13/2016 06:42:Aida Mills RN) Gen Hx Other Genetic History: No (02/13/2016 06:42:Aida Mills RN) Gen Hx Drugs/Meds since LMP: No (02/13/2016 06:42:Aida Mills RN)
[2016-02-15 09:13] VITALS: BP 105/69
[2016-02-15] MEDS: FERROUS SULFATE 325 MG TABLET PO SCH (09:32)
[2016-02-15] MEDS: PRENATAL VITAMIN W-O CA NO5/FE FUMARATE/FA CAPSULE PO SCH (09:32)
[2016-02-15] MEDS: FAMOTIDINE 20 MG TABLET PO SCH (09:32)
[2016-02-15] MEDS: SENNOSIDES/DOCUSATE 8.6-50 MG 1 EACH TABLET PO SCH (09:33)
[2016-02-15] MEDS: DOCUSATE SODIUM 100 MG CAPSULE PO SCH (09:33)
--- NOTE | 2016-02-15 10:25 | PDOC DISCHARGE SUMMARY ---
Discharge Summary-OB Discharge Date: 02/15/16 - Final Diagnosis (1) Delivery normal Is this a current diagnosis for this admission?: Yes (2) Acute blood loss anemia Is this a current diagnosis for this admission?: Yes - Discharge Medication Home Medications: [id number]/Iron Fumarate/FA/Dss [ 19 Tablet] 1 tab PO DAILY 03/27/14 Ranitidine HCl 1 tab PO DAILY 02/13/16 Acetaminophen with Codeine [Tylenol #3 Tablet] 2 each PO Q4HP PRN #14 tablet 08/24 Docusate Sodium [Colace 100 mg Capsule] 100 mg PO BID #60 capsule 02/15/16 Ferrous Sulfate [Feosol 325 mg Tablet] 325 mg PO BID #60 tablet 02/15/16 Ibuprofen [Motrin 800 mg Tablet] 800 mg PO Q8 #60 tablet 02/15/16 Gestational Age: 40.6 Reason(s) for Admission: Induction of Labor Procedures: NST Intrapartum Procedure(s): Spontaneous Vaginal Delivery Complication(s): Hemorrhage-Uterine Atony Laceration-Degree: 1st - Data Baby 1 Male at 1 minute: 8 at 5 minutes: 9 Weight: 3840 kg Home with Mother: Yes Complications: No - Diagnosis Test Laboratory: Temp Pulse Resp BP Pulse Ox 97.9 F 89 18 105/69 98 02/15/16 09:08 02/15/16 09:08 02/15/16 09:08 02/15/16 09:08 02/15/16 09:08 02/13/16 02/13/16 02/14/16 06:50 07:14 06:53 RBC 4.18 2.97 L Hgb 12.5 8.9 L D Hct 36.5 26.0 L Urine Opiates Screen NEGATIVE - Discharge information/Instructions Discharge Activity: Activity As Tolerated, Balance Activity w/Rest, No Lifting Over 10 Pounds, No Lifting/Push/Pulling, Pelvic Rest, No tub bath Discharge Diet: Regular Disposition: HOME, SELF-CARE Follow up with: [facility] in: 4, Weeks
--- NOTE | 2016-02-16 06:24 | L&D Current Admission ---
Current Admit Datetime Report Generated by CPN: 02/16/2016 06:00 ADMISSION INFORMATION Current Admit Date/Time: 02/13/2016 07:47 (02/13/2016 07:47:Aida Mills RN) Reason for Admission: Induction of Labor (02/13/2016 07:47:Aida Mills RN) Chief Complaint: Scheduled Induction of Labor (02/13/2016 07:30:Aida Mills RN) EGA per Dates: 40.6 (02/13/2016 07:47:QS system process) Method of Arrival: Ambulatory (02/13/2016 07:47:Aida Mills RN) Reason for Induction: Postterm (02/13/2016 07:47:Aida Mills RN) Records Available: Yes (02/13/2016 07:47:Aida Mills RN) General Admission Information: Reviewed (02/13/2016 07:47:Aida Mills RN) BELONGINGS/ADVANCED DIRECTIVES Valuables/Personal Effects: Cell Phone (02/13/2016 07:47:Aida Mills RN) Other Belongings: SEE VALUABLES CONSENT (02/13/2016 07:47:Aida Mills RN) Disposition of Belongings: Kept with Patient (02/13/2016 07:47:Aida Mills RN) Advance Direct for Healthcare: No, and Wants No Information (02/13/2016 07:47:Aida Mills RN) Indicate Intent if Not With Pt: RECEIVED IN REGISTRATION (02/13/2016 07:47:Aida Mills RN) Durable Power of Cras: No (02/13/2016 07:47:Aida Mills RN) Living Will: No (02/13/2016 07:47:Aida Mills RN) Organ Donor: Yes (02/13/2016 07:47:Aida Mills RN) Pt Rights Information Given: Yes (02/13/2016 07:47:Aida Mills RN) Pt Understands Pt Rights: Yes (02/13/2016 07:47:Aida Mills RN) LEARNING ASSESSMENT Knowledge Level: Understands L_D Process; Understands Care Activities; Understands Diagnosis (02/13/2016 07:47:Aida Mills RN) Barriers to Learning: None (02/13/2016 07:47:Aida Mills RN) Learning Readiness: Motivated (02/13/2016 07:47:Aida Mills RN) Learns Best By: 1 to 1 Instruction; Reading; Videos; Demonstration (02/13/2016 07:47:Aida Mills RN) Learning Needs: Labor and Delivery Process; Pain Management; Symptoms to Report; Treatment Plan; Medication; Diagnosis; Nutrition; Equipment; Infant Care; Community Resources (02/13/2016 07:47:Aida Mills RN) DOMESTIC VIOLANCE SCREENING Dom Viol Threatened/Hurt: No (02/13/2016 07:47:Aida Mills RN) Hx of Abuse/Neglect past 2yrs: No (02/13/2016 07:47:Aida Mills RN) Feel Unsafe Going Home: No (02/13/2016 07:47:Aida Mills RN) Addt'l Observ Indicating Abuse: No (02/13/2016 07:47:Aida Mills RN) Reason Unable to Complete Screen: N/A, Screen Completed (02/13/2016 07:47:Aida Mills RN) Considered Personal Harm/Suicide: No (02/13/2016 07:47:Aida Mills RN) NUTRITIONAL/FUNCTIONAL SCREENING Problem with Appetite >5 Days: No (02/13/2016 07:47:Aida Mills RN) Chew/Swallow Difficulties: No (02/13/2016 07:47:Aida Mills RN) Inappropriate Wt Gain/Loss: No (02/13/2016 07:47:Aida Mills RN) Presence Skin Breakdown/Ulcer: No (02/13/2016 07:47:Aida Mills RN) Special Diet: No (02/13/2016 07:47:Aida Mills RN) Pt Requests Validation Architect Visit: No (02/13/2016 07:47:Aida Mills RN) Hx of Any of the Following?: N/A (02/13/2016 07:47:Aida Mills RN) New Diagnosis of: N/A (02/13/2016 07:47:Aida Mills RN) Requires Assist w/Ambulation: No (02/13/2016 07:47:Aida Mills RN) Uses Assist Device to Ambulate: No (02/13/2016 07:47:Aida Mills RN) Pt Requires Help w/ADL's: No (02/13/2016 07:47:Aida Mills RN)
--- NOTE | 2016-02-16 06:24 | L&D General Admission ---
General Admit Datetime Report Generated by CPN: 02/16/2016 06:00 INFORMATION Patient Age: 31 (02/13/2016 06:37:QS system process) EDC: 02/07/2016 00:00 (02/13/2016 06:42:Jonna Lei RN) : 4 (02/13/2016 06:42:Jonna Lei RN) Para: 2 (02/13/2016 06:42:Jonna Lei RN) Term: 2 (02/13/2016 06:42:Jonna Lei RN) : 0 (02/13/2016 06:42:Jonna Lei RN) Spontaneous Abortions: 1 (02/13/2016 06:42:Jonna Lei RN) Induced Abortions: 0 (02/13/2016 06:42:Jonna Lei RN) Livin (02/13/2016 06:42:Jonna Lei RN) Cesareans: 0 (02/13/2016 06:42:Jonna Lei RN) VBACs: 0 (02/13/2016 06:42:Jonna Lei RN) Ectopic: 0 (02/13/2016 06:42:Jonna Lei RN) Multiple Births: 0 (02/13/2016 06:42:Jonna Lei RN) Baby, Number in Womb: 1 (02/13/2016 06:42:Jonna Lei RN) CARE Primary Outside Solar Sales Consultant: [facility] (02/13/2016 06:42:Jonna Lei RN) Adequate Care: Yes (02/13/2016 06:42:Aida Mills RN) Height (in): 66 (02/15/2016 10:25:QS system process) ALLERGIES Medication Allergy: No (02/13/2016 06:42:Jonna Lei RN) Medication Allergies: No Known Drug Allergies (02/13/2016) (02/13/2016 06:51:QS system process) Food Allergies: NONE (02/13/2016 06:42:Aida Mills RN) Environmental Allergies: NONE (02/13/2016 06:42:Aida Milsl RN) COMMUNICATION Primary Language: Venezuelan (02/13/2016 06:42:Aida Mills RN) Medical Tx Preferred Language: Venezuelan (02/13/2016 06:42:Aida Mills RN) Communication Barrier(s): None (02/13/2016 06:42:Aida Mills RN) DEMOGRAPHICS Address: [address] [place] [id number] (02/13/2016 06:37:QS system process) Zipcode: [address] (02/13/2016 06:37:QS system process) Home (02/13/2016 06:37:QS system process) SSN: [id number] (02/13/2016 06:37:QS system process) Next of Kin Name: CHRISTINAROSELYN PALACIOS (02/13/2016 06:37:QS system process) Next of Kin (02/13/2016 06:37:QS system process) Next of Kin Relationship: SPO (02/13/2016 06:37:QS system process) Date of : 1985 (02/13/2016 06:37:QS system process) Marital Status: Single (02/13/2016 06:37:QS system process) Sex: Female (02/13/2016 06:37:QS system process) Race: (02/13/2016 06:37:QS system process) Ethnicity: Non- or (02/13/2016 06:37:QS system process) Protestant: Tenriism (02/13/2016 06:37:QS system process) DRUG AND ALCOHOL USE Alcohol: No (02/13/2016 06:42:Aida Mills RN) Cigarettes: Never Smoker. [id number] (02/13/2016 06:42:Aida Mills RN) Marijuana: No (02/13/2016 06:42:Aida Mills RN) Cocaine: No (02/13/2016 06:42:Aida Mills RN) Other Illicit Drugs: No (02/13/2016 06:42:Aida Mills RN) VACCINE HISTORY Influenza Vaccine: Yes (02/13/2016 06:42:Aida Mills RN) Influenza Date: 12/2015 (02/13/2016 06:42:Aida Mills RN) Pneumococcal Vaccine: No (02/13/2016 06:42:Aida Mills RN) Tetanus Vaccine: Yes (02/13/2016 06:42:Aida Mills RN) Tdap Vaccine: Yes (02/13/2016 06:42:Aida Mills RN) Tdap Date: 01/2016 (02/13/2016 06:42:Aida Mills RN) Hepatitis B Vaccine: Yes (02/13/2016 06:42:Aida Mills RN) Musical Engineer: [facility] (02/13/2016 06:42:Aida Mills RN) Feeding Preference: Breast (02/13/2016 06:42:Aida Mills RN) Benefit of Breast Feed Discussed: Yes (02/13/2016 06:42:Aida Mills RN) Circumcision: Yes (02/13/2016 06:42:Aida Mills RN) Classes Attended: No (02/13/2016 06:42:Aida Mills RN) Tubal Ligation: No (02/13/2016 06:42:Aida Mills RN) Tubal Authorization Signed: N/A (02/13/2016 06:42:Aida Mills RN) Consent: N/A (02/13/2016 06:42:Aida Mills RN) Consent Signed: N/A (02/13/2016 06:42:Aida Mills RN) Pain Management Plans: Epidural (02/13/2016 06:42:Aida Mills RN) Plans for Labor and Delivery: None (02/13/2016 06:42:Aida Mills RN) Support Person: CHRISITNA (02/13/2016 06:42:Aida Mills RN) Support Person Relationship: (02/13/2016 06:42:Aida Mills RN) Cultural/Spritual Practice: No (02/13/2016 06:42:Aida Mills RN) Spir/Cult Dietary Needs: No (02/13/2016 06:42:Aida Mills RN) LIVING SITUATION/DISCHARGE PLAN Living Arrangements: House (02/13/2016 06:42:Aida Mills RN) Adequate Access to:: Electric; Heat; Refrigeration; Plumbing/Running water; Phone; Transportation (02/13/2016 06:42:Aida Mills RN) WIC Program: No (02/13/2016 06:42:Aida Mills RN) Discharge Relief Manager Person: CHRISTINA (02/13/2016 06:42:Aida Mills RN) Person to Help after Discharge: ARLIN (02/13/2016 06:42:Aida Mills RN) Currently Using Commun Resources: No (02/13/2016 06:42:Aida Mills RN) Outside Agency/Wire Turning Machine Operator: No (02/13/2016 06:42:Aida Mills RN) Car Seat for Discharge: Yes (02/13/2016 06:42:Aida Mills RN) Adoption Requested: No (02/13/2016 06:42:Aida Mills RN) Pt Contact w/ Post : N/A (02/13/2016 06:42:Aida Mills RN) LABS Blood Type: O Positive (02/13/2016 06:42:Jonna Lei RN) Antibody Screen: Negative (02/13/2016 06:42:Jonna Lei RN) Rho(G) this : Not Applicable (02/13/2016 06:42:Jonna Lei RN) Hemoglobin: 8.9 L (02/14/2016 06:53:QS system process) Hematocrit: 26.0 L (02/14/2016 06:53:QS system process) MCV: 88 (02/14/2016 06:53:QS system process) Group Beta Strep: Negative (02/13/2016 06:42:Jonna Lei RN) Gonorrhea: Negative (02/13/2016 06:42:Jonna Lei RN) Chlamydia: Negative (02/13/2016 06:42:Jonna Lei RN) RPR/VDRL: Nonreactive (02/13/2016 06:42:Jonna Lei RN) HIV Results: Negative (02/13/2016 06:42:Jonna Lei RN) Hepatitis B: Negative (02/13/2016 06:42:Jonna Lei RN) Rubella: Immune (02/13/2016 06:42:Jonna Lei RN) OB/PREVIOUS HISTORY Previous Procedures: Ultrasound (02/13/2016 06:42:Aida Mills RN) Current Procedures: Ultrasound (02/13/2016 06:42:Aida Mills RN) History of Previous : No (02/13/2016 06:42:Aida Mills RN) History of Gestational Diabetes: No (02/13/2016 06:42:Aida Mills RN) History of PIH: No (02/13/2016 06:42:Aida Mills RN) History of Incompetent Cervix: No (02/13/2016 06:42:Aida Mills RN) History of Placenta Previa/Abrup: No (02/13/2016 06:42:Aida Mills RN) History of Macrosomia: No (02/13/2016 06:42:Aida Mills RN) History of IUGR: No (02/13/2016 06:42:Aida Mills RN) History of Hemorrhage: No (02/13/2016 06:42:Aida Mills RN) History of Loss/Stillborn: No (02/13/2016 06:42:Aida Mills RN) History of : No (02/13/2016 06:42:Aida Mills RN) History of D (Rh) Sensitization: No (02/13/2016 06:42:Aida Mills RN) History Recurrent Loss/Stillborn: No (02/13/2016 06:42:Aida Mills RN) History Depression/PP Depression: No (02/13/2016 06:42:Aida Mills RN) History of Uterine Anomaly/SAUL: No (02/13/2016 06:42:Aida Mills RN) History of Infertility: No (02/13/2016 06:42:Aida Mills RN) History of ART Treatment: No (02/13/2016 06:42:Aida Mills RN) History of SAUL: No (02/13/2016 06:42:Aida Mills RN) MEDICAL HISTORY Med Hx Diabetes: No (02/13/2016 06:42:Aida Mills RN) Med Hx Hypertension: No (02/13/2016 06:42:Aida Mills RN) Med Hx Heart Disease: No (02/13/2016 06:42:Aida Mills RN) Med Hx Autoimmune Disorder: No (02/13/2016 06:42:Aida Mills RN) Med Hx Kidney Disease/UTI: No (02/13/2016 06:42:Aida Mills RN) Med Hx Neurologic/Epilepsy: No (02/13/2016 06:42:Aida Mills RN) Med Hx Psychiatric Disorders: No (02/13/2016 06:42:Aida Mills RN) Med Hx Hepatitis/Liver Disease: No (02/13/2016 06:42:Aida Mills RN) Med Hx Varicosities/Phlebitis: No (02/13/2016 06:42:Aida Mills RN) Med Hx Thyroid Dysfunction: No (02/13/2016 06:42:Aida Mills RN) Med Hx Trauma/Violence: No (02/13/2016 06:42:Aida Mills RN) Med Hx Blood Transfusion: No (02/13/2016 06:42:Aida Mills RN) Med Hx Pulmonary (Asthma,TB): No (02/13/2016 06:42:Aida Mills RN) Med Hx Breast: No (02/13/2016 06:42:Aida Mills RN) Med Hx AVIONICS MANAGER Surgery: No (02/13/2016 06:42:Aida Mills RN) Med Hx Hospitalization/Surgery: Yes (02/13/2016 06:42:Aida Mills RN) Med Hx Anesthetic Complications: No (02/13/2016 06:42:Aida Mills RN) Med Hx Abnormal Pap Smear: No (02/13/2016 06:42:Aida Mills RN) Other Medical Diseases: No (02/13/2016 06:42:Aida Mills RN) Med Hx Significant Family Hx: No (02/13/2016 06:42:Aida Mills RN) INFECTIOUS HISTORY Inf Hx Gonorrhea: No (02/13/2016 06:42:Aida Mills RN) Inf Hx Chlamydia: No (02/13/2016 06:42:Aida Mills RN) Inf Hx Syphilis: No (02/13/2016 06:42:Aida Mills RN) Inf Hx HIV/AIDS: No (02/13/2016 06:42:Aida Mills RN) Inf Hx Human Papilloma Virus: No (02/13/2016 06:42:Aida Mills RN) Inf Hx Pt/Partner Genital Herpes: No (02/13/2016 06:42:Aida Mills RN) Inf Hx Tuberculosis/Exposure: No (02/13/2016 06:42:Aida Mills RN) Inf Hx Hepatitis B,C: No (02/13/2016 06:42:Aida Mills RN) Inf Hx Rash or Viral Illness: No (02/13/2016 06:42:Aida Mills RN) GENETIC HISTORY Gen Hx Age >=35 at ALEM: No (02/13/2016 06:42:Aida Mills RN) Gen Hx Thalassemia: No (02/13/2016 06:42:Aida Mills RN) Gen Hx Congenital Heart Defect: No (02/13/2016 06:42:Aida Mills RN) Gen Hx Neural Tube Defect: No (02/13/2016 06:42:Aida Mills RN) Gen Hx Down's Syndrome: No (02/13/2016 06:42:Aida Mills RN) Gen Hx Bassem-Sachs: No (02/13/2016 06:42:Aida Mills RN) Gen Hx Ludy: No (02/13/2016 06:42:Aida Mills RN) Gen Hx Familial Dysautonomia: No (02/13/2016 06:42:Aida Mills RN) Gen Hx Sickle Cell Disease/Trait: No (02/13/2016 06:42:Aida Mills RN) Gen Hx Hemophilia/Blood Disorder: No (02/13/2016 06:42:Aida Mills RN) Gen Hx Muscular Dystrophy: No (02/13/2016 06:42:Aida Mills RN) Gen Hx Cystic Fibrosis: No (02/13/2016 06:42:Aida Mills RN) Gen Hx [place] Chorea: No (02/13/2016 06:42:Aida Mills RN) Gen Hx Mental Retardation/Autism: No (02/13/2016 06:42:Aida Mills RN) Gen Hx Tested for Fragile X: No (02/13/2016 06:42:Aida Mills RN) Gen Hx Other Inher/Chromosomal: No (02/13/2016 06:42:Aida Mills RN) Gen Hx Maternal Metabolic DO: No (02/13/2016 06:42:Aida Mills RN) Gen Hx Pt Father or FOB Defect: No (02/13/2016 06:42:Aida Mills RN) Gen Hx Other Genetic History: No (02/13/2016 06:42:Aida Mills RN) Gen Hx Drugs/Meds since LMP: No (02/13/2016 06:42:Aida Mills RN)
--- NOTE | 2016-02-17 06:23 | L&D Current Admission ---
Current Admit Datetime Report Generated by CPN: 02/17/2016 06:00 ADMISSION INFORMATION Current Admit Date/Time: 02/13/2016 07:47 (02/13/2016 07:47:Aida Mills RN) Reason for Admission: Induction of Labor (02/13/2016 07:47:iAda Mills RN) Chief Complaint: Scheduled Induction of Labor (02/13/2016 07:30:Aida Mills RN) EGA per Dates: 40.6 (02/13/2016 07:47:QS system process) Method of Arrival: Ambulatory (02/13/2016 07:47:Aida Mills RN) Reason for Induction: Postterm (02/13/2016 07:47:Aida Mills RN) Records Available: Yes (02/13/2016 07:47:Aida Mills RN) General Admission Information: Reviewed (02/13/2016 07:47:Aida Mills RN) BELONGINGS/ADVANCED DIRECTIVES Valuables/Personal Effects: Cell Phone (02/13/2016 07:47:Aida Mills RN) Other Belongings: SEE VALUABLES CONSENT (02/13/2016 07:47:Aida Mills RN) Disposition of Belongings: Kept with Patient (02/13/2016 07:47:Aida Mills RN) Advance Direct for Healthcare: No, and Wants No Information (02/13/2016 07:47:Aida Mills RN) Indicate Intent if Not With Pt: RECEIVED IN REGISTRATION (02/13/2016 07:47:Aida Mills RN) Durable Power of Hog Sticker: No (02/13/2016 07:47:Aida Mills RN) Living Will: No (02/13/2016 07:47:Aida Mills RN) Organ Donor: Yes (02/13/2016 07:47:Aida Mills RN) Pt Rights Information Given: Yes (02/13/2016 07:47:iAda Mills RN) Pt Understands Pt Rights: Yes (02/13/2016 07:47:Aida Mills RN) LEARNING ASSESSMENT Knowledge Level: Understands L_D Process; Understands Care Activities; Understands Diagnosis (02/13/2016 07:47:Aida Mills RN) Barriers to Learning: None (02/13/2016 07:47:Aida Mills RN) Learning Readiness: Motivated (02/13/2016 07:47:Aida Mills RN) Learns Best By: 1 to 1 Instruction; Reading; Videos; Demonstration (02/13/2016 07:47:Aida Mills RN) Learning Needs: Labor and Delivery Process; Pain Management; Symptoms to Report; Treatment Plan; Medication; Diagnosis; Nutrition; Equipment; Infant Care; Community Resources (02/13/2016 07:47:Aida Mills RN) DOMESTIC VIOLANCE SCREENING Dom Viol Threatened/Hurt: No (02/13/2016 07:47:Aida Mills RN) Hx of Abuse/Neglect past 2yrs: No (02/13/2016 07:47:Aida Mills RN) Feel Unsafe Going Home: No (02/13/2016 07:47:Aida Mills RN) Addt'l Observ Indicating Abuse: No (02/13/2016 07:47:Aida Mills RN) Reason Unable to Complete Screen: N/A, Screen Completed (02/13/2016 07:47:Aida Mills RN) Considered Personal Harm/Suicide: No (02/13/2016 07:47:Aida Mills RN) NUTRITIONAL/FUNCTIONAL SCREENING Problem with Appetite >5 Days: No (02/13/2016 07:47:Aida Mills RN) Chew/Swallow Difficulties: No (02/13/2016 07:47:Aida Mills RN) Inappropriate Wt Gain/Loss: No (02/13/2016 07:47:Aida Mills RN) Presence Skin Breakdown/Ulcer: No (02/13/2016 07:47:Aida Mills RN) Special Diet: No (02/13/2016 07:47:Aida Mills RN) Pt Requests Primary School Principal Visit: No (02/13/2016 07:47:Aida Mills RN) Hx of Any of the Following?: N/A (02/13/2016 07:47:Aida Mills RN) New Diagnosis of: N/A (02/13/2016 07:47:Aida Mills RN) Requires Assist w/Ambulation: No (02/13/2016 07:47:Aida Mills RN) Uses Assist Device to Ambulate: No (02/13/2016 07:47:Aida Mills RN) Pt Requires Help w/ADL's: No (02/13/2016 07:47:Aida Mills RN)
--- NOTE | 2016-02-17 06:23 | L&D General Admission ---
General Admit Datetime Report Generated by CPN: 02/17/2016 06:00 INFORMATION Patient Age: 31 (02/13/2016 06:37:QS system process) EDC: 02/07/2016 00:00 (02/13/2016 06:42:Jonna Lei RN) : 4 (02/13/2016 06:42:Jonna Lei RN) Para: 2 (02/13/2016 06:42:Jonna Lei RN) Term: 2 (02/13/2016 06:42:Jonna Lei RN) : 0 (02/13/2016 06:42:Jonna Lei RN) Spontaneous Abortions: 1 (02/13/2016 06:42:Jonna Lei RN) Induced Abortions: 0 (02/13/2016 06:42:Jonna Lei RN) Livin (02/13/2016 06:42:Jonna Lei RN) Cesareans: 0 (02/13/2016 06:42:Jonna Lei RN) VBACs: 0 (02/13/2016 06:42:Jonna Lei RN) Ectopic: 0 (02/13/2016 06:42:Jonna Lei RN) Multiple Births: 0 (02/13/2016 06:42:Jonna Lei RN) Baby, Number in Womb: 1 (02/13/2016 06:42:Jonna Lei RN) CARE Primary State Appellate Clerk: [facility] (02/13/2016 06:42:Jonna Lei RN) Adequate Care: Yes (02/13/2016 06:42:Aida Mills RN) Height (in): 66 (02/15/2016 10:25:QS system process) ALLERGIES Medication Allergy: No (02/13/2016 06:42:Jonna Lei RN) Medication Allergies: No Known Drug Allergies (02/13/2016) (02/13/2016 06:51:QS system process) Food Allergies: NONE (02/13/2016 06:42:Aida Mills RN) Environmental Allergies: NONE (02/13/2016 06:42:Aida Mills RN) COMMUNICATION Primary Language: Honduran (02/13/2016 06:42:Aida Mills RN) Medical Tx Preferred Language: Honduran (02/13/2016 06:42:Aida Mills RN) Communication Barrier(s): None (02/13/2016 06:42:Aida Mills RN) DEMOGRAPHICS Address: [address] [place] [id number] (02/13/2016 06:37:QS system process) Zipcode: [id number] (02/13/2016 06:37:QS system process) Home (02/13/2016 06:37:QS system process) SSN: [id number] (02/13/2016 06:37:QS system process) Next of Kin Name: CHRISTINAROSELYN PALACIOS (02/13/2016 06:37:QS system process) Next of Kin (02/13/2016 06:37:QS system process) Next of Kin Relationship: SPO (02/13/2016 06:37:QS system process) Date of : 1985 (02/13/2016 06:37:QS system process) Marital Status: Single (02/13/2016 06:37:QS system process) Sex: Female (02/13/2016 06:37:QS system process) Race: (02/13/2016 06:37:QS system process) Ethnicity: Non- or (02/13/2016 06:37:QS system process) Yazdanism: Sabianism (02/13/2016 06:37:QS system process) DRUG AND ALCOHOL USE Alcohol: No (02/13/2016 06:42:Aida Mills RN) Cigarettes: Never Smoker. [id number] (02/13/2016 06:42:Aida Mills RN) Marijuana: No (02/13/2016 06:42:Aida Mills RN) Cocaine: No (02/13/2016 06:42:Aida Mills RN) Other Illicit Drugs: No (02/13/2016 06:42:Aida Mills RN) VACCINE HISTORY Influenza Vaccine: Yes (02/13/2016 06:42:Aida Mills RN) Influenza Date: 12/2015 (02/13/2016 06:42:Aida Mills RN) Pneumococcal Vaccine: No (02/13/2016 06:42:Aida Mills RN) Tetanus Vaccine: Yes (02/13/2016 06:42:Aida Mills RN) Tdap Vaccine: Yes (02/13/2016 06:42:Aida Mills RN) Tdap Date: 01/2016 (02/13/2016 06:42:Aida Mills RN) Hepatitis B Vaccine: Yes (02/13/2016 06:42:Aida Mills RN) Seed Buyer: [facility] (02/13/2016 06:42:Aida Mills RN) Feeding Preference: Breast (02/13/2016 06:42:Aida Mills RN) Benefit of Breast Feed Discussed: Yes (02/13/2016 06:42:Aida Mills RN) Circumcision: Yes (02/13/2016 06:42:Aida Mills RN) Classes Attended: No (02/13/2016 06:42:Aida Mills RN) Tubal Ligation: No (02/13/2016 06:42:Aida Mills RN) Tubal Authorization Signed: N/A (02/13/2016 06:42:Aida Mills RN) Consent: N/A (02/13/2016 06:42:Aida Mills RN) Consent Signed: N/A (02/13/2016 06:42:Aida Mills RN) Pain Management Plans: Epidural (02/13/2016 06:42:Aida Mills RN) Plans for Labor and Delivery: None (02/13/2016 06:42:Aida Mills RN) Support Person: CHRISTINA (02/13/2016 06:42:Aida Mills RN) Support Person Relationship: (02/13/2016 06:42:Aida Mills RN) Cultural/Spritual Practice: No (02/13/2016 06:42:Aida Mills RN) Spir/Cult Dietary Needs: No (02/13/2016 06:42:Aida Mills RN) LIVING SITUATION/DISCHARGE PLAN Living Arrangements: House (02/13/2016 06:42:Aida Mills RN) Adequate Access to:: Electric; Heat; Refrigeration; Plumbing/Running water; Phone; Transportation (02/13/2016 06:42:Aida Mills RN) WIC Program: No (02/13/2016 06:42:Aida Mills RN) Discharge Photographic Developer And Printer Person: CHRISTINA (02/13/2016 06:42:Aida Mills RN) Person to Help after Discharge: ARLIN (02/13/2016 06:42:Aida Mills RN) Currently Using Commun Resources: No (02/13/2016 06:42:Aida Mills RN) Outside Agency/Finger Cobbler: No (02/13/2016 06:42:Aida Mills RN) Car Seat for Discharge: Yes (02/13/2016 06:42:Aida Mills RN) Adoption Requested: No (02/13/2016 06:42:Aida Mills RN) Pt Contact w/ Post : N/A (02/13/2016 06:42:Aida Mills RN) LABS Blood Type: O Positive (02/13/2016 06:42:Jonna Lei RN) Antibody Screen: Negative (02/13/2016 06:42:Jonna Lei RN) Rho(G) this : Not Applicable (02/13/2016 06:42:Jonna Lei RN) Hemoglobin: 8.9 L (02/14/2016 06:53:QS system process) Hematocrit: 26.0 L (02/14/2016 06:53:QS system process) MCV: 88 (02/14/2016 06:53:QS system process) Group Beta Strep: Negative (02/13/2016 06:42:Jonna Lei RN) Gonorrhea: Negative (02/13/2016 06:42:Jonna Lei RN) Chlamydia: Negative (02/13/2016 06:42:Jonna Lei RN) RPR/VDRL: Nonreactive (02/13/2016 06:42:Jonna Lei RN) HIV Results: Negative (02/13/2016 06:42:Jonna Lei RN) Hepatitis B: Negative (02/13/2016 06:42:Jonna Lei RN) Rubella: Immune (02/13/2016 06:42:Jonna Lei RN) OB/PREVIOUS HISTORY Previous Procedures: Ultrasound (02/13/2016 06:42:Aida Mills RN) Current Procedures: Ultrasound (02/13/2016 06:42:Aida Mills RN) History of Previous : No (02/13/2016 06:42:Aida Mills RN) History of Gestational Diabetes: No (02/13/2016 06:42:Aida Mills RN) History of PIH: No (02/13/2016 06:42:Aida Mills RN) History of Incompetent Cervix: No (02/13/2016 06:42:Aida Mills RN) History of Placenta Previa/Abrup: No (02/13/2016 06:42:Aida Mills RN) History of Macrosomia: No (02/13/2016 06:42:Aida Mills RN) History of IUGR: No (02/13/2016 06:42:Aida Mills RN) History of Hemorrhage: No (02/13/2016 06:42:Aida Mills RN) History of Loss/Stillborn: No (02/13/2016 06:42:Aida Mills RN) History of : No (02/13/2016 06:42:Aida Mills RN) History of D (Rh) Sensitization: No (02/13/2016 06:42:Aida Mills RN) History Recurrent Loss/Stillborn: No (02/13/2016 06:42:Aida Mills RN) History Depression/PP Depression: No (02/13/2016 06:42:Aida Mills RN) History of Uterine Anomaly/SAUL: No (02/13/2016 06:42:Aida Mills RN) History of Infertility: No (02/13/2016 06:42:Aida Mills RN) History of ART Treatment: No (02/13/2016 06:42:Aida Mills RN) History of SAUL: No (02/13/2016 06:42:Aida Mills RN) MEDICAL HISTORY Med Hx Diabetes: No (02/13/2016 06:42:Aida Mills RN) Med Hx Hypertension: No (02/13/2016 06:42:Aida Mills RN) Med Hx Heart Disease: No (02/13/2016 06:42:Aida Mills RN) Med Hx Autoimmune Disorder: No (02/13/2016 06:42:Aida Mills RN) Med Hx Kidney Disease/UTI: No (02/13/2016 06:42:Aida Mills RN) Med Hx Neurologic/Epilepsy: No (02/13/2016 06:42:Aida Mills RN) Med Hx Psychiatric Disorders: No (02/13/2016 06:42:Aida Mills RN) Med Hx Hepatitis/Liver Disease: No (02/13/2016 06:42:Aida Mills RN) Med Hx Varicosities/Phlebitis: No (02/13/2016 06:42:Aida Mills RN) Med Hx Thyroid Dysfunction: No (02/13/2016 06:42:Aida Mills RN) Med Hx Trauma/Violence: No (02/13/2016 06:42:Aida Mills RN) Med Hx Blood Transfusion: No (02/13/2016 06:42:Adia Mills RN) Med Hx Pulmonary (Asthma,TB): No (02/13/2016 06:42:Aida Mills RN) Med Hx Breast: No (02/13/2016 06:42:Aida Mills RN) Med Hx UNIVERSITY LIBRARIAN Surgery: No (02/13/2016 06:42:Aida Mills RN) Med Hx Hospitalization/Surgery: Yes (02/13/2016 06:42:Aida Mills RN) Med Hx Anesthetic Complications: No (02/13/2016 06:42:Aida Mills RN) Med Hx Abnormal Pap Smear: No (02/13/2016 06:42:Aida Mills RN) Other Medical Diseases: No (02/13/2016 06:42:Aida Mills RN) Med Hx Significant Family Hx: No (02/13/2016 06:42:Aida Mills RN) INFECTIOUS HISTORY Inf Hx Gonorrhea: No (02/13/2016 06:42:Aida Mills RN) Inf Hx Chlamydia: No (02/13/2016 06:42:Aida Mills RN) Inf Hx Syphilis: No (02/13/2016 06:42:Aida Mills RN) Inf Hx HIV/AIDS: No (02/13/2016 06:42:Aida Mills RN) Inf Hx Human Papilloma Virus: No (02/13/2016 06:42:Aida Mills RN) Inf Hx Pt/Partner Genital Herpes: No (02/13/2016 06:42:Aida Mills RN) Inf Hx Tuberculosis/Exposure: No (02/13/2016 06:42:Aida Mills RN) Inf Hx Hepatitis B,C: No (02/13/2016 06:42:Aida Mills RN) Inf Hx Rash or Viral Illness: No (02/13/2016 06:42:Aida Mills RN) GENETIC HISTORY Gen Hx Age >=35 at ALEM: No (02/13/2016 06:42:Aida Mills RN) Gen Hx Thalassemia: No (02/13/2016 06:42:Aida Mills RN) Gen Hx Congenital Heart Defect: No (02/13/2016 06:42:Aida Mills RN) Gen Hx Neural Tube Defect: No (02/13/2016 06:42:Aida Mills RN) Gen Hx Down's Syndrome: No (02/13/2016 06:42:Aida Mills RN) Gen Hx Bassem-Sachs: No (02/13/2016 06:42:Aida Mills RN) Gen Hx Ludy: No (02/13/2016 06:42:Aida Mills RN) Gen Hx Familial Dysautonomia: No (02/13/2016 06:42:Aida Mills RN) Gen Hx Sickle Cell Disease/Trait: No (02/13/2016 06:42:Aida Mills RN) Gen Hx Hemophilia/Blood Disorder: No (02/13/2016 06:42:Aida Mills RN) Gen Hx Muscular Dystrophy: No (02/13/2016 06:42:Aida Mills RN) Gen Hx Cystic Fibrosis: No (02/13/2016 06:42:Aida Mills RN) Gen Hx [place] Chorea: No (02/13/2016 06:42:Aida Mills RN) Gen Hx Mental Retardation/Autism: No (02/13/2016 06:42:Aida Mills RN) Gen Hx Tested for Fragile X: No (02/13/2016 06:42:Aida Mills RN) Gen Hx Other Inher/Chromosomal: No (02/13/2016 06:42:Aida Mills RN) Gen Hx Maternal Metabolic DO: No (02/13/2016 06:42:Aida Mills RN) Gen Hx Pt Father or FOB Defect: No (02/13/2016 06:42:Aida Mills RN) Gen Hx Other Genetic History: No (02/13/2016 06:42:Aida Mills RN) Gen Hx Drugs/Meds since LMP: No (02/13/2016 06:42:Aida Mills RN)
--- NOTE | 2016-02-18 06:23 | L&D General Admission ---
General Admit Datetime Report Generated by CPN: 02/18/2016 06:00 INFORMATION Patient Age: 31 (02/13/2016 06:37:QS system process) EDC: 02/07/2016 00:00 (02/13/2016 06:42:Jonna Lei RN) : 4 (02/13/2016 06:42:Jonna Lei RN) Para: 2 (02/13/2016 06:42:Jonna Lei RN) Term: 2 (02/13/2016 06:42:Jonna Lei RN) : 0 (02/13/2016 06:42:Jonna Lei RN) Spontaneous Abortions: 1 (02/13/2016 06:42:Jonna Lei RN) Induced Abortions: 0 (02/13/2016 06:42:Jonna Lei RN) Livin (02/13/2016 06:42:Jonna Lei RN) Cesareans: 0 (02/13/2016 06:42:Jonna Lei RN) VBACs: 0 (02/13/2016 06:42:Jonna Lei RN) Ectopic: 0 (02/13/2016 06:42:Jonna Lei RN) Multiple Births: 0 (02/13/2016 06:42:Jonna Lei RN) Baby, Number in Womb: 1 (02/13/2016 06:42:Jonna Lei RN) CARE Primary Cops: [facility] (02/13/2016 06:42:Jonna Lei RN) Adequate Care: Yes (02/13/2016 06:42:Aida Mills RN) Height (in): 66 (02/15/2016 10:25:QS system process) ALLERGIES Medication Allergy: No (02/13/2016 06:42:Jonna Lei RN) Medication Allergies: No Known Drug Allergies (02/13/2016) (02/13/2016 06:51:QS system process) Food Allergies: NONE (02/13/2016 06:42:Aida Mills RN) Environmental Allergies: NONE (02/13/2016 06:42:Aida Mills RN) COMMUNICATION Primary Language: Israeli (02/13/2016 06:42:Aida Mills RN) Medical Tx Preferred Language: Israeli (02/13/2016 06:42:Aida Mills RN) Communication Barrier(s): None (02/13/2016 06:42:Aida Mills RN) DEMOGRAPHICS Address: [address] [place] [id number] (02/13/2016 06:37:QS system process) Zipcode: [address] (02/13/2016 06:37:QS system process) Home (02/13/2016 06:37:QS system process) SSN: [id number] (02/13/2016 06:37:QS system process) Next of Kin Name: CHRISTINAROSELYN PALACIOS (02/13/2016 06:37:QS system process) Next of Kin (02/13/2016 06:37:QS system process) Next of Kin Relationship: SPO (02/13/2016 06:37:QS system process) Date of : 1985 (02/13/2016 06:37:QS system process) Marital Status: Single (02/13/2016 06:37:QS system process) Sex: Female (02/13/2016 06:37:QS system process) Race: (02/13/2016 06:37:QS system process) Ethnicity: Non- or (02/13/2016 06:37:QS system process) Quaker: Jehovah'S Witness (02/13/2016 06:37:QS system process) DRUG AND ALCOHOL USE Alcohol: No (02/13/2016 06:42:Aida Mills RN) Cigarettes: Never Smoker. [id number] (02/13/2016 06:42:Aida Mills RN) Marijuana: No (02/13/2016 06:42:Aida Mills RN) Cocaine: No (02/13/2016 06:42:Aida Mills RN) Other Illicit Drugs: No (02/13/2016 06:42:Aida Mills RN) VACCINE HISTORY Influenza Vaccine: Yes (02/13/2016 06:42:Aida Mills RN) Influenza Date: 12/2015 (02/13/2016 06:42:Aida Mills RN) Pneumococcal Vaccine: No (02/13/2016 06:42:Aida Mills RN) Tetanus Vaccine: Yes (02/13/2016 06:42:Aida Mills RN) Tdap Vaccine: Yes (02/13/2016 06:42:Aida Mills RN) Tdap Date: 01/2016 (02/13/2016 06:42:Aida Mills RN) Hepatitis B Vaccine: Yes (02/13/2016 06:42:Aida Mills RN) Esthetician Makeup Artist: [facility] (02/13/2016 06:42:Aida Mills RN) Feeding Preference: Breast (02/13/2016 06:42:Aida Mills RN) Benefit of Breast Feed Discussed: Yes (02/13/2016 06:42:Aida Mills RN) Circumcision: Yes (02/13/2016 06:42:Aida Mills RN) Classes Attended: No (02/13/2016 06:42:Aida Mills RN) Tubal Ligation: No (02/13/2016 06:42:Aida Mills RN) Tubal Authorization Signed: N/A (02/13/2016 06:42:Aida Mills RN) Consent: N/A (02/13/2016 06:42:Aida Mills RN) Consent Signed: N/A (02/13/2016 06:42:Aida Mills RN) Pain Management Plans: Epidural (02/13/2016 06:42:Aida Mills RN) Plans for Labor and Delivery: None (02/13/2016 06:42:Aida Mills RN) Support Person: CHRISTINA (02/13/2016 06:42:Aida Mills RN) Support Person Relationship: (02/13/2016 06:42:Aida Mills RN) Cultural/Spritual Practice: No (02/13/2016 06:42:Aida Mills RN) Spir/Cult Dietary Needs: No (02/13/2016 06:42:Aida Mills RN) LIVING SITUATION/DISCHARGE PLAN Living Arrangements: House (02/13/2016 06:42:Aida Mills RN) Adequate Access to:: Electric; Heat; Refrigeration; Plumbing/Running water; Phone; Transportation (02/13/2016 06:42:Aida Mills RN) WIC Program: No (02/13/2016 06:42:Aida Mills RN) Discharge Concrete Mason Person: CHRISTINA (02/13/2016 06:42:Aida Mills RN) Person to Help after Discharge: ARLIN (02/13/2016 06:42:Aida Mills RN) Currently Using Commun Resources: No (02/13/2016 06:42:Aida Mills RN) Outside Agency/Swim Instructor: No (02/13/2016 06:42:Aida Mills RN) Car Seat for Discharge: Yes (02/13/2016 06:42:Aida Mills RN) Adoption Requested: No (02/13/2016 06:42:Aida Mills RN) Pt Contact w/ Post : N/A (02/13/2016 06:42:Aida Mills RN) LABS Blood Type: O Positive (02/13/2016 06:42:Jonna Lei RN) Antibody Screen: Negative (02/13/2016 06:42:Jonna Lei RN) Rho(G) this : Not Applicable (02/13/2016 06:42:Jonna Lei RN) Hemoglobin: 8.9 L (02/14/2016 06:53:QS system process) Hematocrit: 26.0 L (02/14/2016 06:53:QS system process) MCV: 88 (02/14/2016 06:53:QS system process) Group Beta Strep: Negative (02/13/2016 06:42:Jonna Lei RN) Gonorrhea: Negative (02/13/2016 06:42:Jonna Lei RN) Chlamydia: Negative (02/13/2016 06:42:Jonna Lei RN) RPR/VDRL: Nonreactive (02/13/2016 06:42:Jonna Lei RN) HIV Results: Negative (02/13/2016 06:42:Jonna Lei RN) Hepatitis B: Negative (02/13/2016 06:42:Jonna Lei RN) Rubella: Immune (02/13/2016 06:42:Jonna Lei RN) OB/PREVIOUS HISTORY Previous Procedures: Ultrasound (02/13/2016 06:42:Aida Mills RN) Current Procedures: Ultrasound (02/13/2016 06:42:Aida Mills RN) History of Previous : No (02/13/2016 06:42:Aida Mills RN) History of Gestational Diabetes: No (02/13/2016 06:42:Aida Mills RN) History of PIH: No (02/13/2016 06:42:Aida Mills RN) History of Incompetent Cervix: No (02/13/2016 06:42:Aida Mills RN) History of Placenta Previa/Abrup: No (02/13/2016 06:42:Aida Mills RN) History of Macrosomia: No (02/13/2016 06:42:Aida Mills RN) History of IUGR: No (02/13/2016 06:42:Aida Mills RN) History of Hemorrhage: No (02/13/2016 06:42:Aida Mills RN) History of Loss/Stillborn: No (02/13/2016 06:42:Aida Mills RN) History of : No (02/13/2016 06:42:Aida Mills RN) History of D (Rh) Sensitization: No (02/13/2016 06:42:Aida Mills RN) History Recurrent Loss/Stillborn: No (02/13/2016 06:42:Aida Mills RN) History Depression/PP Depression: No (02/13/2016 06:42:Aida Mills RN) History of Uterine Anomaly/SAUL: No (02/13/2016 06:42:Aida Mills RN) History of Infertility: No (02/13/2016 06:42:Aida Mills RN) History of ART Treatment: No (02/13/2016 06:42:Aida Mills RN) History of SAUL: No (02/13/2016 06:42:Aida Mills RN) MEDICAL HISTORY Med Hx Diabetes: No (02/13/2016 06:42:Aida Mills RN) Med Hx Hypertension: No (02/13/2016 06:42:Aida Mills RN) Med Hx Heart Disease: No (02/13/2016 06:42:Aida Mills RN) Med Hx Autoimmune Disorder: No (02/13/2016 06:42:Aida Mills RN) Med Hx Kidney Disease/UTI: No (02/13/2016 06:42:Aida Mills RN) Med Hx Neurologic/Epilepsy: No (02/13/2016 06:42:Aida Mills RN) Med Hx Psychiatric Disorders: No (02/13/2016 06:42:Aida Mills RN) Med Hx Hepatitis/Liver Disease: No (02/13/2016 06:42:Aida Mills RN) Med Hx Varicosities/Phlebitis: No (02/13/2016 06:42:Aida Mills RN) Med Hx Thyroid Dysfunction: No (02/13/2016 06:42:Aida Mills RN) Med Hx Trauma/Violence: No (02/13/2016 06:42:Aida Mills RN) Med Hx Blood Transfusion: No (02/13/2016 06:42:Aida Mills RN) Med Hx Pulmonary (Asthma,TB): No (02/13/2016 06:42:Aida Mills RN) Med Hx Breast: No (02/13/2016 06:42:Aida Mills RN) Med Hx BOAT CANVAS INSTALLER Surgery: No (02/13/2016 06:42:Aida Mills RN) Med Hx Hospitalization/Surgery: Yes (02/13/2016 06:42:Aida Mills RN) Med Hx Anesthetic Complications: No (02/13/2016 06:42:Aida Mills RN) Med Hx Abnormal Pap Smear: No (02/13/2016 06:42:Aida Mills RN) Other Medical Diseases: No (02/13/2016 06:42:Aida Mills RN) Med Hx Significant Family Hx: No (02/13/2016 06:42:Aida Mills RN) INFECTIOUS HISTORY Inf Hx Gonorrhea: No (02/13/2016 06:42:Aida Mills RN) Inf Hx Chlamydia: No (02/13/2016 06:42:Aida Mills RN) Inf Hx Syphilis: No (02/13/2016 06:42:Aida Mills RN) Inf Hx HIV/AIDS: No (02/13/2016 06:42:Aida Mills RN) Inf Hx Human Papilloma Virus: No (02/13/2016 06:42:Aida Mills RN) Inf Hx Pt/Partner Genital Herpes: No (02/13/2016 06:42:Aida Mills RN) Inf Hx Tuberculosis/Exposure: No (02/13/2016 06:42:Aida Mills RN) Inf Hx Hepatitis B,C: No (02/13/2016 06:42:Aida Mills RN) Inf Hx Rash or Viral Illness: No (02/13/2016 06:42:Aida Mills RN) GENETIC HISTORY Gen Hx Age >=35 at ALEM: No (02/13/2016 06:42:Aida Mills RN) Gen Hx Thalassemia: No (02/13/2016 06:42:Aida Mills RN) Gen Hx Congenital Heart Defect: No (02/13/2016 06:42:Aida Mills RN) Gen Hx Neural Tube Defect: No (02/13/2016 06:42:Aida Mills RN) Gen Hx Down's Syndrome: No (02/13/2016 06:42:Aida Mills RN) Gen Hx Bassem-Sachs: No (02/13/2016 06:42:Aida Mills RN) Gen Hx Ludy: No (02/13/2016 06:42:Aida Mills RN) Gen Hx Familial Dysautonomia: No (02/13/2016 06:42:Aida Mills RN) Gen Hx Sickle Cell Disease/Trait: No (02/13/2016 06:42:Aida Mills RN) Gen Hx Hemophilia/Blood Disorder: No (02/13/2016 06:42:Aida Mills RN) Gen Hx Muscular Dystrophy: No (02/13/2016 06:42:Aida Mills RN) Gen Hx Cystic Fibrosis: No (02/13/2016 06:42:Aida Mills RN) Gen Hx [place] Chorea: No (02/13/2016 06:42:Aida Mills RN) Gen Hx Mental Retardation/Autism: No (02/13/2016 06:42:Aida Mills RN) Gen Hx Tested for Fragile X: No (02/13/2016 06:42:Aida Mills RN) Gen Hx Other Inher/Chromosomal: No (02/13/2016 06:42:Aida Mills RN) Gen Hx Maternal Metabolic DO: No (02/13/2016 06:42:Aida Mills RN) Gen Hx Pt Father or FOB Defect: No (02/13/2016 06:42:Aida Mills RN) Gen Hx Other Genetic History: No (02/13/2016 06:42:Aida Mills RN) Gen Hx Drugs/Meds since LMP: No (02/13/2016 06:42:Aida Mills RN)
--- NOTE | 2016-02-19 06:24 | L&D General Admission ---
General Admit Datetime Report Generated by CPN: 02/19/2016 06:00 INFORMATION Patient Age: 31 (02/13/2016 06:37:QS system process) EDC: 02/07/2016 00:00 (02/13/2016 06:42:Jonna Lei RN) : 4 (02/13/2016 06:42:Jonna Lei RN) Para: 2 (02/13/2016 06:42:Jonna Lei RN) Term: 2 (02/13/2016 06:42:Jonna Lei RN) : 0 (02/13/2016 06:42:Jonna Lei RN) Spontaneous Abortions: 1 (02/13/2016 06:42:Jonna Lei RN) Induced Abortions: 0 (02/13/2016 06:42:Jonna Lei RN) Livin (02/13/2016 06:42:Jonna Lei RN) Cesareans: 0 (02/13/2016 06:42:Jonna Lei RN) VBACs: 0 (02/13/2016 06:42:Jonna Lei RN) Ectopic: 0 (02/13/2016 06:42:Jonna Lei RN) Multiple Births: 0 (02/13/2016 06:42:Jonna Lei RN) Baby, Number in Womb: 1 (02/13/2016 06:42:Jonna Lei RN) CARE Primary Goodwill Ambassador: [facility] (02/13/2016 06:42:Jonna Lei RN) Adequate Care: Yes (02/13/2016 06:42:Aida Mills RN) Height (in): 66 (02/15/2016 10:25:QS system process) ALLERGIES Medication Allergy: No (02/13/2016 06:42:Jonna Lei RN) Medication Allergies: No Known Drug Allergies (02/13/2016) (02/13/2016 06:51:QS system process) Food Allergies: NONE (02/13/2016 06:42:Aida Mills RN) Environmental Allergies: NONE (02/13/2016 06:42:Aida Mills RN) COMMUNICATION Primary Language: Djiboutian (02/13/2016 06:42:Aida Mills RN) Medical Tx Preferred Language: Djiboutian (02/13/2016 06:42:Aida Mills RN) Communication Barrier(s): None (02/13/2016 06:42:Aida Mills RN) DEMOGRAPHICS Address: [address] [place] [id number] (02/13/2016 06:37:QS system process) Zipcode: [address] (02/13/2016 06:37:QS system process) Home (02/13/2016 06:37:QS system process) SSN: [id number] (02/13/2016 06:37:QS system process) Next of Kin Name: CHIRSTINAROSELYN PALACIOS (02/13/2016 06:37:QS system process) Next of Kin (02/13/2016 06:37:QS system process) Next of Kin Relationship: SPO (02/13/2016 06:37:QS system process) Date of : 1985 (02/13/2016 06:37:QS system process) Marital Status: Single (02/13/2016 06:37:QS system process) Sex: Female (02/13/2016 06:37:QS system process) Race: (02/13/2016 06:37:QS system process) Ethnicity: Non- or (02/13/2016 06:37:QS system process) Hoahaoism: Muslim (02/13/2016 06:37:QS system process) DRUG AND ALCOHOL USE Alcohol: No (02/13/2016 06:42:Aida Mills RN) Cigarettes: Never Smoker. [id number] (02/13/2016 06:42:Aida Mills RN) Marijuana: No (02/13/2016 06:42:Aida Mills RN) Cocaine: No (02/13/2016 06:42:Aida Mills RN) Other Illicit Drugs: No (02/13/2016 06:42:Aida Mills RN) VACCINE HISTORY Influenza Vaccine: Yes (02/13/2016 06:42:Aida Mills RN) Influenza Date: 12/2015 (02/13/2016 06:42:Aida Mills RN) Pneumococcal Vaccine: No (02/13/2016 06:42:Aida Mills RN) Tetanus Vaccine: Yes (02/13/2016 06:42:Aida Mills RN) Tdap Vaccine: Yes (02/13/2016 06:42:Aida Mills RN) Tdap Date: 01/2016 (02/13/2016 06:42:Aida Mills RN) Hepatitis B Vaccine: Yes (02/13/2016 06:42:Aida Mills RN) Certified Hyperbaric Technologist: [facility] (02/13/2016 06:42:Aida Mills RN) Feeding Preference: Breast (02/13/2016 06:42:Aida Mills RN) Benefit of Breast Feed Discussed: Yes (02/13/2016 06:42:Aida Mills RN) Circumcision: Yes (02/13/2016 06:42:Aida Mills RN) Classes Attended: No (02/13/2016 06:42:Aida Mills RN) Tubal Ligation: No (02/13/2016 06:42:Aida Mills RN) Tubal Authorization Signed: N/A (02/13/2016 06:42:Aida Mills RN) Consent: N/A (02/13/2016 06:42:Aida Mills RN) Consent Signed: N/A (02/13/2016 06:42:Aida Mills RN) Pain Management Plans: Epidural (02/13/2016 06:42:Aida Mills RN) Plans for Labor and Delivery: None (02/13/2016 06:42:Aida Mills RN) Support Person: CHRISTINA (02/13/2016 06:42:Aida Mills RN) Support Person Relationship: (02/13/2016 06:42:Aida Mills RN) Cultural/Spritual Practice: No (02/13/2016 06:42:Aida Mills RN) Spir/Cult Dietary Needs: No (02/13/2016 06:42:Aida Mills RN) LIVING SITUATION/DISCHARGE PLAN Living Arrangements: House (02/13/2016 06:42:Aida Mills RN) Adequate Access to:: Electric; Heat; Refrigeration; Plumbing/Running water; Phone; Transportation (02/13/2016 06:42:Aida Mills RN) WIC Program: No (02/13/2016 06:42:Aida Mills RN) Discharge Artificial Stone Applicator Person: CHRISTINA (02/13/2016 06:42:Aida Mills RN) Person to Help after Discharge: ARLIN (02/13/2016 06:42:Aida Mills RN) Currently Using Commun Resources: No (02/13/2016 06:42:Aida Mills RN) Outside Agency/Nuclear Powerplant Mechanic: No (02/13/2016 06:42:Aida Mills RN) Car Seat for Discharge: Yes (02/13/2016 06:42:Aida Mills RN) Adoption Requested: No (02/13/2016 06:42:Aida Mills RN) Pt Contact w/ Post : N/A (02/13/2016 06:42:iAda Mills RN) LABS Blood Type: O Positive (02/13/2016 06:42:Jonna Lei RN) Antibody Screen: Negative (02/13/2016 06:42:Jonna Lei RN) Rho(G) this : Not Applicable (02/13/2016 06:42:Jonna Lei RN) Hemoglobin: 8.9 L (02/14/2016 06:53:QS system process) Hematocrit: 26.0 L (02/14/2016 06:53:QS system process) MCV: 88 (02/14/2016 06:53:QS system process) Group Beta Strep: Negative (02/13/2016 06:42:Jonna Lei RN) Gonorrhea: Negative (02/13/2016 06:42:Jonna Lei RN) Chlamydia: Negative (02/13/2016 06:42:Jonna Lei RN) RPR/VDRL: Nonreactive (02/13/2016 06:42:Jonna Lei RN) HIV Results: Negative (02/13/2016 06:42:Jonna Lei RN) Hepatitis B: Negative (02/13/2016 06:42:Jonna Lei RN) Rubella: Immune (02/13/2016 06:42:Jonna Lei RN) OB/PREVIOUS HISTORY Previous Procedures: Ultrasound (02/13/2016 06:42:Aida Mills RN) Current Procedures: Ultrasound (02/13/2016 06:42:Aida Mills RN) History of Previous : No (02/13/2016 06:42:Aida Mills RN) History of Gestational Diabetes: No (02/13/2016 06:42:Aida Mills RN) History of PIH: No (02/13/2016 06:42:Aida Mills RN) History of Incompetent Cervix: No (02/13/2016 06:42:Aida Mills RN) History of Placenta Previa/Abrup: No (02/13/2016 06:42:Aida Mills RN) History of Macrosomia: No (02/13/2016 06:42:Aida Mills RN) History of IUGR: No (02/13/2016 06:42:Aida Mills RN) History of Hemorrhage: No (02/13/2016 06:42:Aida Mills RN) History of Loss/Stillborn: No (02/13/2016 06:42:Aida Mills RN) History of : No (02/13/2016 06:42:Aida Mills RN) History of D (Rh) Sensitization: No (02/13/2016 06:42:Aida Mills RN) History Recurrent Loss/Stillborn: No (02/13/2016 06:42:Aida Mills RN) History Depression/PP Depression: No (02/13/2016 06:42:Aida Mills RN) History of Uterine Anomaly/SAUL: No (02/13/2016 06:42:Aida Mills RN) History of Infertility: No (02/13/2016 06:42:Aida Mills RN) History of ART Treatment: No (02/13/2016 06:42:Aida Mills RN) History of SAUL: No (02/13/2016 06:42:Aida Mills RN) MEDICAL HISTORY Med Hx Diabetes: No (02/13/2016 06:42:Aida Mills RN) Med Hx Hypertension: No (02/13/2016 06:42:Aida Mills RN) Med Hx Heart Disease: No (02/13/2016 06:42:Aida Mills RN) Med Hx Autoimmune Disorder: No (02/13/2016 06:42:Aida Mills RN) Med Hx Kidney Disease/UTI: No (02/13/2016 06:42:Aida Mills RN) Med Hx Neurologic/Epilepsy: No (02/13/2016 06:42:Aida Mills RN) Med Hx Psychiatric Disorders: No (02/13/2016 06:42:Aida Mills RN) Med Hx Hepatitis/Liver Disease: No (02/13/2016 06:42:Aida Mills RN) Med Hx Varicosities/Phlebitis: No (02/13/2016 06:42:Aida Mills RN) Med Hx Thyroid Dysfunction: No (02/13/2016 06:42:Aida Mills RN) Med Hx Trauma/Violence: No (02/13/2016 06:42:Aida Mills RN) Med Hx Blood Transfusion: No (02/13/2016 06:42:Aida Mills RN) Med Hx Pulmonary (Asthma,TB): No (02/13/2016 06:42:Aida Mills RN) Med Hx Breast: No (02/13/2016 06:42:Aida Mills RN) Med Hx AUTOMATIC SPINNING LATHE OPERATOR Surgery: No (02/13/2016 06:42:Aida Mills RN) Med Hx Hospitalization/Surgery: Yes (02/13/2016 06:42:Aida Mills RN) Med Hx Anesthetic Complications: No (02/13/2016 06:42:Aida Mills RN) Med Hx Abnormal Pap Smear: No (02/13/2016 06:42:Aida Mills RN) Other Medical Diseases: No (02/13/2016 06:42:Aida Mills RN) Med Hx Significant Family Hx: No (02/13/2016 06:42:Aida Mills RN) INFECTIOUS HISTORY Inf Hx Gonorrhea: No (02/13/2016 06:42:Aida Mills RN) Inf Hx Chlamydia: No (02/13/2016 06:42:Aida Mills RN) Inf Hx Syphilis: No (02/13/2016 06:42:Aida Mills RN) Inf Hx HIV/AIDS: No (02/13/2016 06:42:Aida Mills RN) Inf Hx Human Papilloma Virus: No (02/13/2016 06:42:Aida Mills RN) Inf Hx Pt/Partner Genital Herpes: No (02/13/2016 06:42:Aida Mills RN) Inf Hx Tuberculosis/Exposure: No (02/13/2016 06:42:Aida Mills RN) Inf Hx Hepatitis B,C: No (02/13/2016 06:42:Aida Mills RN) Inf Hx Rash or Viral Illness: No (02/13/2016 06:42:Aida Mills RN) GENETIC HISTORY Gen Hx Age >=35 at ALEM: No (02/13/2016 06:42:Aida Mills RN) Gen Hx Thalassemia: No (02/13/2016 06:42:Aida Mills RN) Gen Hx Congenital Heart Defect: No (02/13/2016 06:42:Aida Mills RN) Gen Hx Neural Tube Defect: No (02/13/2016 06:42:Aida Mills RN) Gen Hx Down's Syndrome: No (02/13/2016 06:42:Aida Mills RN) Gen Hx Bassem-Sachs: No (02/13/2016 06:42:Aida Mills RN) Gen Hx Ludy: No (02/13/2016 06:42:Aida Mills RN) Gen Hx Familial Dysautonomia: No (02/13/2016 06:42:Aida Mills RN) Gen Hx Sickle Cell Disease/Trait: No (02/13/2016 06:42:Aida Mills RN) Gen Hx Hemophilia/Blood Disorder: No (02/13/2016 06:42:Aida Mills RN) Gen Hx Muscular Dystrophy: No (02/13/2016 06:42:Aida Mills RN) Gen Hx Cystic Fibrosis: No (02/13/2016 06:42:Aida Mills RN) Gen Hx [place] Chorea: No (02/13/2016 06:42:Aida Mills RN) Gen Hx Mental Retardation/Autism: No (02/13/2016 06:42:Aida Mills RN) Gen Hx Tested for Fragile X: No (02/13/2016 06:42:Aida Mills RN) Gen Hx Other Inher/Chromosomal: No (02/13/2016 06:42:Aida Mills RN) Gen Hx Maternal Metabolic DO: No (02/13/2016 06:42:Aida Mills RN) Gen Hx Pt Father or FOB Defect: No (02/13/2016 06:42:Aida Mills RN) Gen Hx Other Genetic History: No (02/13/2016 06:42:Aida Mills RN) Gen Hx Drugs/Meds since LMP: No (02/13/2016 06:42:Aida Mills RN)
--- NOTE | 2016-02-20 06:25 | L&D General Admission ---
General Admit Datetime Report Generated by CPN: 02/20/2016 06:00 INFORMATION Patient Age: 31 (02/13/2016 06:37:QS system process) EDC: 02/07/2016 00:00 (02/13/2016 06:42:Jonna Lei RN) : 4 (02/13/2016 06:42:Jonna Lei RN) Para: 2 (02/13/2016 06:42:Jonna Lei RN) Term: 2 (02/13/2016 06:42:Jonna Lei RN) : 0 (02/13/2016 06:42:Jonna Lei RN) Spontaneous Abortions: 1 (02/13/2016 06:42:Jonna Lei RN) Induced Abortions: 0 (02/13/2016 06:42:Jonna Lei RN) Livin (02/13/2016 06:42:Jonna Lei RN) Cesareans: 0 (02/13/2016 06:42:Jonna Lei RN) VBACs: 0 (02/13/2016 06:42:Jonna Lei RN) Ectopic: 0 (02/13/2016 06:42:Jonna Lei RN) Multiple Births: 0 (02/13/2016 06:42:Jonna Lei RN) Baby, Number in Womb: 1 (02/13/2016 06:42:Jonna Lei RN) CARE Primary Dry Wall Plasterer: [facility] (02/13/2016 06:42:Jonna Lei RN) Adequate Care: Yes (02/13/2016 06:42:Aida Mills RN) Height (in): 66 (02/15/2016 10:25:QS system process) ALLERGIES Medication Allergy: No (02/13/2016 06:42:Jonna Lei RN) Medication Allergies: No Known Drug Allergies (02/13/2016) (02/13/2016 06:51:QS system process) Food Allergies: NONE (02/13/2016 06:42:Aida Mills RN) Environmental Allergies: NONE (02/13/2016 06:42:Aida Mills RN) COMMUNICATION Primary Language: Palauan (02/13/2016 06:42:Aida Mills RN) Medical Tx Preferred Language: Palauan (02/13/2016 06:42:Aida Mills RN) Communication Barrier(s): None (02/13/2016 06:42:Aida Mills RN) DEMOGRAPHICS Address: [address] [place] [id number] (02/13/2016 06:37:QS system process) Zipcode: [address] (02/13/2016 06:37:QS system process) Home (02/13/2016 06:37:QS system process) SSN: [id number] (02/13/2016 06:37:QS system process) Next of Kin Name: CHRISTINAROSELYN PALACIOS (02/13/2016 06:37:QS system process) Next of Kin (02/13/2016 06:37:QS system process) Next of Kin Relationship: SPO (02/13/2016 06:37:QS system process) Date of : 1985 (02/13/2016 06:37:QS system process) Marital Status: Single (02/13/2016 06:37:QS system process) Sex: Female (02/13/2016 06:37:QS system process) Race: (02/13/2016 06:37:QS system process) Ethnicity: Non- or (02/13/2016 06:37:QS system process) Buddhist: Alevism (02/13/2016 06:37:QS system process) DRUG AND ALCOHOL USE Alcohol: No (02/13/2016 06:42:Aida Mills RN) Cigarettes: Never Smoker. [id number] (02/13/2016 06:42:Aida Mills RN) Marijuana: No (02/13/2016 06:42:Aida Mills RN) Cocaine: No (02/13/2016 06:42:Aida Mills RN) Other Illicit Drugs: No (02/13/2016 06:42:Aida Mills RN) VACCINE HISTORY Influenza Vaccine: Yes (02/13/2016 06:42:Aida Mills RN) Influenza Date: 12/2015 (02/13/2016 06:42:Aida Mills RN) Pneumococcal Vaccine: No (02/13/2016 06:42:Aida Mills RN) Tetanus Vaccine: Yes (02/13/2016 06:42:Aida Mills RN) Tdap Vaccine: Yes (02/13/2016 06:42:Aida Mills RN) Tdap Date: 01/2016 (02/13/2016 06:42:Aida Mills RN) Hepatitis B Vaccine: Yes (02/13/2016 06:42:Aida Mills RN) Figure Clerk: [facility] (02/13/2016 06:42:Aida Mills RN) Feeding Preference: Breast (02/13/2016 06:42:Aida Mills RN) Benefit of Breast Feed Discussed: Yes (02/13/2016 06:42:Aida Mills RN) Circumcision: Yes (02/13/2016 06:42:Aida Mills RN) Classes Attended: No (02/13/2016 06:42:Aida Mills RN) Tubal Ligation: No (02/13/2016 06:42:Aida Mills RN) Tubal Authorization Signed: N/A (02/13/2016 06:42:Aida Mills RN) Consent: N/A (02/13/2016 06:42:Aida Mills RN) Consent Signed: N/A (02/13/2016 06:42:Aida Mills RN) Pain Management Plans: Epidural (02/13/2016 06:42:Aida Mills RN) Plans for Labor and Delivery: None (02/13/2016 06:42:Aida Mills RN) Support Person: CHRISTINA (02/13/2016 06:42:Aida Mills RN) Support Person Relationship: (02/13/2016 06:42:Aida Mills RN) Cultural/Spritual Practice: No (02/13/2016 06:42:Aida Mills RN) Spir/Cult Dietary Needs: No (02/13/2016 06:42:Aida Mills RN) LIVING SITUATION/DISCHARGE PLAN Living Arrangements: House (02/13/2016 06:42:Aida Mills RN) Adequate Access to:: Electric; Heat; Refrigeration; Plumbing/Running water; Phone; Transportation (02/13/2016 06:42:Aida Mills RN) WIC Program: No (02/13/2016 06:42:Aida Mills RN) Discharge Manufacturing Management Associate Person: CHRISTINA (02/13/2016 06:42:Aida Mills RN) Person to Help after Discharge: ARLIN (02/13/2016 06:42:Aida Mills RN) Currently Using Commun Resources: No (02/13/2016 06:42:Aida Mills RN) Outside Agency/Warehouse Laborer: No (02/13/2016 06:42:Aida Mills RN) Car Seat for Discharge: Yes (02/13/2016 06:42:Aida Mills RN) Adoption Requested: No (02/13/2016 06:42:Aida Mills RN) Pt Contact w/ Post : N/A (02/13/2016 06:42:Aida Mills RN) LABS Blood Type: O Positive (02/13/2016 06:42:Jonna Lei RN) Antibody Screen: Negative (02/13/2016 06:42:Jonna Lei RN) Rho(G) this : Not Applicable (02/13/2016 06:42:Jonna Lei RN) Hemoglobin: 8.9 L (02/14/2016 06:53:QS system process) Hematocrit: 26.0 L (02/14/2016 06:53:QS system process) MCV: 88 (02/14/2016 06:53:QS system process) Group Beta Strep: Negative (02/13/2016 06:42:Jonna Lei RN) Gonorrhea: Negative (02/13/2016 06:42:Jonna Lei RN) Chlamydia: Negative (02/13/2016 06:42:Jonna Lei RN) RPR/VDRL: Nonreactive (02/13/2016 06:42:Jonna Lei RN) HIV Results: Negative (02/13/2016 06:42:Jonna Lei RN) Hepatitis B: Negative (02/13/2016 06:42:Jonna Lei RN) Rubella: Immune (02/13/2016 06:42:Jonna Lei RN) OB/PREVIOUS HISTORY Previous Procedures: Ultrasound (02/13/2016 06:42:Aida Mills RN) Current Procedures: Ultrasound (02/13/2016 06:42:Aida Mills RN) History of Previous : No (02/13/2016 06:42:Aida Mills RN) History of Gestational Diabetes: No (02/13/2016 06:42:Aida Mills RN) History of PIH: No (02/13/2016 06:42:Aida Mills RN) History of Incompetent Cervix: No (02/13/2016 06:42:Aida Mills RN) History of Placenta Previa/Abrup: No (02/13/2016 06:42:Aida Mills RN) History of Macrosomia: No (02/13/2016 06:42:Aida Mills RN) History of IUGR: No (02/13/2016 06:42:Aida Milsl RN) History of Hemorrhage: No (02/13/2016 06:42:Aida Mills RN) History of Loss/Stillborn: No (02/13/2016 06:42:Aida Mills RN) History of : No (02/13/2016 06:42:Aida Mills RN) History of D (Rh) Sensitization: No (02/13/2016 06:42:Aida Mills RN) History Recurrent Loss/Stillborn: No (02/13/2016 06:42:Aida Mills RN) History Depression/PP Depression: No (02/13/2016 06:42:Aida Mills RN) History of Uterine Anomaly/SAUL: No (02/13/2016 06:42:Aida Mills RN) History of Infertility: No (02/13/2016 06:42:Aida Mills RN) History of ART Treatment: No (02/13/2016 06:42:Aida Mills RN) History of SAUL: No (02/13/2016 06:42:Aida Mills RN) MEDICAL HISTORY Med Hx Diabetes: No (02/13/2016 06:42:Aida Mills RN) Med Hx Hypertension: No (02/13/2016 06:42:Aida Mills RN) Med Hx Heart Disease: No (02/13/2016 06:42:Aida Mills RN) Med Hx Autoimmune Disorder: No (02/13/2016 06:42:Aida Mills RN) Med Hx Kidney Disease/UTI: No (02/13/2016 06:42:Aida Mills RN) Med Hx Neurologic/Epilepsy: No (02/13/2016 06:42:Aida Mills RN) Med Hx Psychiatric Disorders: No (02/13/2016 06:42:Aida Mills RN) Med Hx Hepatitis/Liver Disease: No (02/13/2016 06:42:Aida Mills RN) Med Hx Varicosities/Phlebitis: No (02/13/2016 06:42:Aida Mills RN) Med Hx Thyroid Dysfunction: No (02/13/2016 06:42:Aida Mills RN) Med Hx Trauma/Violence: No (02/13/2016 06:42:Aida Mills RN) Med Hx Blood Transfusion: No (02/13/2016 06:42:Aida Mills RN) Med Hx Pulmonary (Asthma,TB): No (02/13/2016 06:42:Aida Mills RN) Med Hx Breast: No (02/13/2016 06:42:Aida Mills RN) Med Hx BIOMETRICS INSTRUCTOR Surgery: No (02/13/2016 06:42:Aida Mills RN) Med Hx Hospitalization/Surgery: Yes (02/13/2016 06:42:Aida Mills RN) Med Hx Anesthetic Complications: No (02/13/2016 06:42:Aida Mills RN) Med Hx Abnormal Pap Smear: No (02/13/2016 06:42:Aida Mills RN) Other Medical Diseases: No (02/13/2016 06:42:Aida Mills RN) Med Hx Significant Family Hx: No (02/13/2016 06:42:Aida Mills RN) INFECTIOUS HISTORY Inf Hx Gonorrhea: No (02/13/2016 06:42:Aida Mills RN) Inf Hx Chlamydia: No (02/13/2016 06:42:Aida Mills RN) Inf Hx Syphilis: No (02/13/2016 06:42:Aida Mills RN) Inf Hx HIV/AIDS: No (02/13/2016 06:42:Aida Mills RN) Inf Hx Human Papilloma Virus: No (02/13/2016 06:42:Aida Mills RN) Inf Hx Pt/Partner Genital Herpes: No (02/13/2016 06:42:Aida Mills RN) Inf Hx Tuberculosis/Exposure: No (02/13/2016 06:42:Aida Mills RN) Inf Hx Hepatitis B,C: No (02/13/2016 06:42:Aida Mills RN) Inf Hx Rash or Viral Illness: No (02/13/2016 06:42:Aida Mills RN) GENETIC HISTORY Gen Hx Age >=35 at ALEM: No (02/13/2016 06:42:Aida Mills RN) Gen Hx Thalassemia: No (02/13/2016 06:42:Aida Mills RN) Gen Hx Congenital Heart Defect: No (02/13/2016 06:42:Aida Mills RN) Gen Hx Neural Tube Defect: No (02/13/2016 06:42:Aida Mills RN) Gen Hx Down's Syndrome: No (02/13/2016 06:42:Aida Mills RN) Gen Hx Bassem-Sachs: No (02/13/2016 06:42:Aida Mills RN) Gen Hx Ludy: No (02/13/2016 06:42:Aida Mills RN) Gen Hx Familial Dysautonomia: No (02/13/2016 06:42:Aida Mills RN) Gen Hx Sickle Cell Disease/Trait: No (02/13/2016 06:42:Aida Mills RN) Gen Hx Hemophilia/Blood Disorder: No (02/13/2016 06:42:Aida Mills RN) Gen Hx Muscular Dystrophy: No (02/13/2016 06:42:Aida Mills RN) Gen Hx Cystic Fibrosis: No (02/13/2016 06:42:Aida Mills RN) Gen Hx [place] Chorea: No (02/13/2016 06:42:Aida Mills RN) Gen Hx Mental Retardation/Autism: No (02/13/2016 06:42:Aida Mills RN) Gen Hx Tested for Fragile X: No (02/13/2016 06:42:Aida Mills RN) Gen Hx Other Inher/Chromosomal: No (02/13/2016 06:42:Aida Mills RN) Gen Hx Maternal Metabolic DO: No (02/13/2016 06:42:Aida Mills RN) Gen Hx Pt Father or FOB Defect: No (02/13/2016 06:42:Aida Mills RN) Gen Hx Other Genetic History: No (02/13/2016 06:42:Aida Mills RN) Gen Hx Drugs/Meds since LMP: No (02/13/2016 06:42:Aida Mills RN)
--- NOTE | 2016-02-20 06:25 | L&D Current Admission ---
Current Admit Datetime Report Generated by CPN: 02/20/2016 06:00 ADMISSION INFORMATION Current Admit Date/Time: 02/13/2016 07:47 (02/13/2016 07:47:Aida Mills RN) Reason for Admission: Induction of Labor (02/13/2016 07:47:Aida Mills RN) Chief Complaint: Scheduled Induction of Labor (02/13/2016 07:30:Aida Mills RN) EGA per Dates: 40.6 (02/13/2016 07:47:QS system process) Method of Arrival: Ambulatory (02/13/2016 07:47:Aida Mills RN) Reason for Induction: Postterm (02/13/2016 07:47:Aida Mills RN) Records Available: Yes (02/13/2016 07:47:Aida Mills RN) General Admission Information: Reviewed (02/13/2016 07:47:Aida Mills RN) BELONGINGS/ADVANCED DIRECTIVES Valuables/Personal Effects: Cell Phone (02/13/2016 07:47:Aida Mills RN) Other Belongings: SEE VALUABLES CONSENT (02/13/2016 07:47:Aida Mills RN) Disposition of Belongings: Kept with Patient (02/13/2016 07:47:Aida Mills RN) Advance Direct for Healthcare: No, and Wants No Information (02/13/2016 07:47:Aida Mills RN) Indicate Intent if Not With Pt: RECEIVED IN REGISTRATION (02/13/2016 07:47:Aida Mills RN) Durable Power of Study Manager: No (02/13/2016 07:47:Aida Mills RN) Living Will: No (02/13/2016 07:47:Aida Mills RN) Organ Donor: Yes (02/13/2016 07:47:Aida Mills RN) Pt Rights Information Given: Yes (02/13/2016 07:47:Aida Mills RN) Pt Understands Pt Rights: Yes (02/13/2016 07:47:Aida Mills RN) LEARNING ASSESSMENT Knowledge Level: Understands L_D Process; Understands Care Activities; Understands Diagnosis (02/13/2016 07:47:Aida Mills RN) Barriers to Learning: None (02/13/2016 07:47:Aida Mills RN) Learning Readiness: Motivated (02/13/2016 07:47:Aida Mills RN) Learns Best By: 1 to 1 Instruction; Reading; Videos; Demonstration (02/13/2016 07:47:Aida Mills RN) Learning Needs: Labor and Delivery Process; Pain Management; Symptoms to Report; Treatment Plan; Medication; Diagnosis; Nutrition; Equipment; Infant Care; Community Resources (02/13/2016 07:47:Aida Mills RN) DOMESTIC VIOLANCE SCREENING Dom Viol Threatened/Hurt: No (02/13/2016 07:47:Aida Mills RN) Hx of Abuse/Neglect past 2yrs: No (02/13/2016 07:47:Aida Mills RN) Feel Unsafe Going Home: No (02/13/2016 07:47:Aida Mills RN) Addt'l Observ Indicating Abuse: No (02/13/2016 07:47:Aida Mills RN) Reason Unable to Complete Screen: N/A, Screen Completed (02/13/2016 07:47:Aida Mills RN) Considered Personal Harm/Suicide: No (02/13/2016 07:47:Aida Mills RN) NUTRITIONAL/FUNCTIONAL SCREENING Problem with Appetite >5 Days: No (02/13/2016 07:47:Aida Mills RN) Chew/Swallow Difficulties: No (02/13/2016 07:47:Aida Mills RN) Inappropriate Wt Gain/Loss: No (02/13/2016 07:47:Aida Mills RN) Presence Skin Breakdown/Ulcer: No (02/13/2016 07:47:Aida Mills RN) Special Diet: No (02/13/2016 07:47:Aida Mills RN) Pt Requests Programming Development Project Manager Visit: No (02/13/2016 07:47:Aida Mills RN) Hx of Any of the Following?: N/A (02/13/2016 07:47:Aida Mills RN) New Diagnosis of: N/A (02/13/2016 07:47:Aida Mills RN) Requires Assist w/Ambulation: No (02/13/2016 07:47:Aida Mills RN) Uses Assist Device to Ambulate: No (02/13/2016 07:47:Aida Mills RN) Pt Requires Help w/ADL's: No (02/13/2016 07:47:Aida Mills RN)
== END 2016-02-15 12:20 | disposition home or self-care (01) | DRG 774 ==
LOC: LR 06:37 → 2S 20:12
PROVIDERS: ADMIT Obstetrics & Gynecology; ATTEND Obstetrics & Gynecology
PROC: 10E0XZZ Delivery of Products of Conception, External Approach (ICD-10-PCS; principal; 2016-02-13)
PROC: 0HQ9XZZ Repair Perineum Skin, External Approach (ICD-10-PCS; 2016-02-13)
PROC: 4A1HXCZ Monitoring of Products of Conception, Cardiac Rate, External Approach (ICD-10-PCS; 2016-02-13)
DX: O48.0 Post-term pregnancy (principal); O72.1 Other immediate postpartum hemorrhage; D62 Acute posthemorrhagic anemia; O99.02 Anemia complicating childbirth; O70.0 First degree perineal laceration during delivery; O76 Abnormality in fetal heart rate and rhythm complicating labor and delivery; Z3A.40 40 weeks gestation of pregnancy; Z37.0 Single live birth
CPT/HCPCS: 36415; 80307; 81005; 82962; 85025; 85027; 86592; 86850; 86900; 86901; 88307; 94760; J0690; J2370; J2405; J2590; J3010; J3490; S0119

== ENCOUNTER 2017-10-18 11:21 | Outpatient (CLI) | payer OTHER ==
--- NOTE | 2017-10-18 11:58 | Non Stress Test Report ---
Non Stress Test Datetime Report Generated by CPN: 10/18/2017 11:58 DEMOGRAPHIC EGA NST: 40.1 INDICATION Indication for Study: Ordered by Provider MONITORING Monitor Explained: Monitor Explained; Test Explained; Patient Verbalized Understanding Time on Monitor: 10/18/2017 11:35 Time off Monitor: 10/18/2017 11:57 NST Duration: 22 NST INTERVENTIONS NST Interventions: PO Hydration; Reposition Patient Physician Notified NST: Saldivar CNM BABY A: [id number] BABY A Movement : Present Contraction Frequency : none FHR Baseline : 135 Accelerations : 15X15 Decelerations : None Variability : Moderate 6-25bpm NST Review: Meets Criteria for Reactive NST NST Review and Verified By : Dominique Adams RN NST Results: Reactive NST REPORT Report Trigger: Send Report
== END 2017-10-18 12:05 | disposition home or self-care (01) ==
LOC: LC 11:21
PROVIDERS: ATTEND Obstetrics & Gynecology
PROC: 4A1HXCZ Monitoring of Products of Conception, Cardiac Rate, External Approach (ICD-10-PCS; principal; 2017-10-18)
DX: O48.0 Post-term pregnancy (principal); Z3A.40 40 weeks gestation of pregnancy
CPT/HCPCS: 59025

== ENCOUNTER 2017-10-27 19:33 | Inpatient (IN) | payer OTHER ==
[2017-10-27 20:04] LABS: APPEARANCE,URINE SLIGHTLY-CLOUDY; BILIRUBIN,URINE NEGATIVE (NEGATIVE); COLOR,URINE YELLOW; GLUCOSE, URINE NEGATIVE (NEGATIVE); KETONES,URINE 20 mg/dL (NEGATIVE); LEUKOCYTE ESTERASE,URINE NEGATIVE (NEGATIVE); NITRITE,URINE NEGATIVE (NEGATIVE); PROTEIN,URINE NEGATIVE (NEGATIVE); URINE SPECIFIC GRAVITY 1.014; UROBILINOGEN,URINE NEGATIVE mg/dL (<2.0)
--- NOTE | 2017-10-27 20:10 | Admission Physical ---
Datetime Report Generated by CPN: 10/27/2017 20:09 CURRENT ADMISSION Chief Complaint: Suspected Ruptured Membranes Indication for Induction: Not Applicable Admit Impression : Term, Intrauterine ; Ruptured Membranes Admit Plan: Admit to Unit; Initiate Labor Augmentation Protocol ALLERGIES Medication Allergies: No Medication Allergies: No Known Drug Allergies (10/18/2017) Latex: No Latex Allergies OBSTETRICAL HISTORY EDC: 10/17/2017 00:00 : 5 Para: 4 Term: 4 : 0 SAB: 3 IAB: 0 Ectopic: 0 Livin Cesareans: 0 VBACs: 0 Multiple Births: 0 Gestational Diabetes: No Rh Sensitization: No Incompetent Cervix: No SAUL: No Infertility: No ART Treatment: No Uterine Anomaly: No IUGR: No Hx Previous C/S: No Macrosomia: No Hx Loss/Stillborn: No PIH: No Hx : No Placenta Previa/Abruption: No Depression/PP Depression: No PTL/PROM: No Post Hemorrhage: No Current Procedures: Ultrasound; NST SEE RECORDS Alcohol: No Marijuana : No Cocaine: No Other Illicit Drugs: No Cigarettes: Never Smoker. 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 Surgery: No Heart Disease: No Hosp/Surgery: No Autoimmune Disorder: No Anesthetic Complications: No Kidney Disease: No Abnormal Pap Smear: No Neuro/Epilepsy: No Psychiatric Disorders: No Other Medical Diseases: No Hepatitis/Liver Disease: No Significant Family History: No Varicosities/Phlebitis: No Trauma/Violence : No Thyroid Dysfunction: No INFECTIOUS HISTORY Gonorrhea: No Genital Herpes: No Chlamydia: No Tuberculosis: No Syphilis: No Hepatitis: No HIV/AIDS Exposure: No Rash or Viral Illness: No HPV: No PHYSICAL EXAM General: Normal HEENT: Normal Neurologic: Normal Thyroid: Normal Heart: Normal Lungs: Normal Breast: Normal Back: Normal Abdomen: Normal Genitourinary Exam: Normal Extremities: Normal DTRs: Normal Pelvic Type: Adequate Vital Signs: Reviewed; Within Normal Limits VAGINAL EXAM Dilatation: 3 Effacement: 25 Station: -2 MEMBRANES Pooling: Positive Membranes: Ruptured Amniotic Fluid Color: Clear FETUS A EGA: 41.3 Monitoring: External US FHR- Baseline: 130 Variability: Moderate 6-25bpm Accelerations: 15X15 Decelerations: None FHR Category: Category I Estimated Weight (gm): 3500 Presentation: Vertex PLANS FOR LABOR AND DELIVERY Labor and Delivery: None Pain Management: Epidural Feeding Preference: Breast Benefit of Breast Feed Discussed: Yes Circumcision: N/A INFORMED CONSENT Signature: with User ID: [email or web address]
[2017-10-27 20:35] LABS: URINE AMPHETAMINES SCREEN NEGATIVE; URINE BARBITURATES SCREEN NEGATIVE; URINE BENZODIAZEPINES SCREEN NEGATIVE; URINE COCAINE SCREEN NEGATIVE; URINE MARIJUANA (THC) SCREEN NEGATIVE; URINE METHADONE SCREEN NEGATIVE; URINE PHENCYCLIDINE SCREEN NEGATIVE
[2017-10-27 20:44] LABS: ABSOLUTE EOSINOPHILS # (AUTO) 0.1 10^3/uL (0.0-0.6); ABSOLUTE LYMPHOCYTES (AUTO) 1.9 10^3/uL (0.5-4.7); ABSOLUTE MONOCYTES (AUTO) 0.5 10^3/uL (0.1-1.4); ABSOLUTE NEUT (AUTO) 8.4 10^3/uL (1.7-8.2); BASOPHILS % (AUTO) 0.4 % (0-2); EOSINOPHILS % (AUTO) 0.5 % (0-6); HEMATOCRIT 39.2 % (36.0-47.0); HEMOGLOBIN 13.2 g/dL (12.0-15.5); LYMPHOCYTES % (AUTO) 17.1 % (13-45); MEAN CORPUSCULAR HGB CONC 33.7 g/dL (32.0-36.0); MEAN CORPUSCULAR VOLUME 89 fl (80-97); PLATELET COUNT 162 10^3/uL (150-450); RED CELL DISTRIBUTION WIDTH 13.7 % (11.5-14.0); TOTAL CELLS COUNTED % (AUTO) 100 %; WHITE BLOOD COUNT 10.9 10^3/uL (4.0-10.5)
[2017-10-27] MEDS ORDERED: RINGERS SOLUTION,LACTATED 1,000 ML IV PRN (21:44)
[2017-10-27] MEDS ORDERED: MISOPROSTOL 0.2 MG TABLET ONE (21:52)
[2017-10-27] MEDS ORDERED: EPHEDRINE SULFATE INJ 50 MG/1 ML AMPULE ONE (21:52)
[2017-10-27] MEDS ORDERED: OXYTOCIN 10 UNIT/ML VIAL ONE (21:52)
[2017-10-27] MEDS ORDERED: LIDOCAINE 1% INJ-PF (10 MG/ML) 30 ML SDV ONE (21:53)
[2017-10-27] MEDS ORDERED: OXYTOCIN/NORMAL SALINE 20 UNIT/1,000 ML RTUINJ ONE (21:53)
[2017-10-27] MEDS ORDERED: FENTANYL/BUPIVACAINE/NS/PF 300 MCG/150 ML RTUINJ EPI ONE (21:53)
[2017-10-27] MEDS ORDERED: BUPIVACAINE HCL 0.5 % INJ/PF 30 ML SDV ONE (22:34)
[2017-10-27] MEDS ORDERED: OXYTOCIN/NORMAL SALINE 20 UNIT/1,000 ML RTUINJ IV PRN (22:45)
[2017-10-28] MEDS ORDERED: PROMETHAZINE HCL INJ 25 MG/1 ML VIAL IV PRN ×2 (01:10→09:00)
[2017-10-28] MEDS ORDERED: ACETAMINOPHEN 325 MG TABLET PO PRN (01:10)
[2017-10-28] MEDS ORDERED: ACETAMINOPHEN WITH CODEINE #3 TABLET PO PRN (01:10)
[2017-10-28] MEDS ORDERED: GLYCERIN/WITCH HAZEL LEAF 1 EACH MED..PAD TP PRN (01:10)
[2017-10-28] MEDS ORDERED: MEASLES,MUMPS&RUBELLA VACC/PF 0.5 ML VIAL SUBCUT PRN ×2 (01:10→09:00)
[2017-10-28] MEDS ORDERED: MAGNESIUM HYDROXIDE SUSP 30 ML UDCUP PO PRN (01:10)
[2017-10-28] MEDS ORDERED: BENZOCAINE/MENTHOL AEROSOL SPRAY 56 ML TOP PRN (01:10)
[2017-10-28] MEDS ORDERED: OXYTOCIN/NORMAL SALINE 20 UNIT/1,000 ML RTUINJ IV PRN (01:10)
[2017-10-28] MEDS ORDERED: DIPHENHYDRAMINE HCL 25 MG CAPSULE PO PRN (01:10)
[2017-10-28] MEDS ORDERED: PROMETHAZINE HCL 25 MG SUPP.RECT PR PRN (01:10)
[2017-10-28] MEDS ORDERED: PROMETHAZINE HCL 25 MG TABLET PO PRN (01:10)
[2017-10-28] MEDS ORDERED: NA PHOS,M-B/NA PHOS,DI-BA (ADULT) 133 ML ENEMA PR PRN (01:10)
[2017-10-28] MEDS ORDERED: DIBUCAINE 1% OINTMENT 28 GM TP PRN (01:10)
[2017-10-28] MEDS ORDERED: DIPH/PERTUSS(ACELL)/TETANUS VAC/PF 0.5 ML SYR (>=10YO) IM PRN ×2 (01:10→09:00)
[2017-10-28] MEDS ORDERED: PSEUDOEPHEDRINE HCL 30 MG TABLET PO PRN (01:10)
[2017-10-28] MEDS ORDERED: IBUPROFEN 800 MG TABLET ONE (02:48)
--- NOTE | 2017-10-28 04:57 | Delivery Summary ---
Del Sum A-C Datetime Report Generated by CPN: 10/28/2017 04:57 DELIVERY PERSONNEL DELIVERY PERSONNEL: [id number] Delivery Doctor:: Jacqueline Eason CNM Labor and Delivery Nurse:: Yesenia Bhandari RN Student Teaching Coordinator/FISH PACKER: Mari Bai, ST Additional Personnel: : Laura Marcelo RN MATERNAL INFORMATION Delivery Anesthesia: Epidural Medications After Delivery: Pitocin Bolus-Please Comment Meds After Delivery Comment: Pitocin 20 units/1000 mL NS bolus Maternal Complications: None Provider Comments: pt progressed to c/c/+2 with urge to push, began pushing and went on to deliver a viable baby girl. Large clot prior to delivery of head. Baby delivered through nuchal x1. Baby placed on maternal abdomen skin to skin and with spontaneous cry and respiratory effort spontaneously at . Cord allowed to stop pulsating then clamped x2 and cut by FOB (cord blood obtained, 3vc noted). Placenta delivered spontaneously intact. Fundus firm @ u-2, moderate bleeding, several clots out with fundal and vaginal sweep then small bleeding and fundus remains firm. Mother and baby skin to skin and bonding at this time. No lacerations noted, small perineal abrasion as stated. LABOR SUMMARY EDC: 10/17/2017 00:00 No. Babies in Womb: 1 Attempted: No Labor Anesthesia: Epidural LABOR INFORMATION Reason for Induction: Not Applicable Onset of Labor: 10/27/2017 20:07 Complete Dilatation: 10/28/2017 00:34 Oxytocin: Augmentation Group B Beta Strep: negative Antibiotics # of Doses: 0 Antibiotics Time of Last Dose: n/a Name of Antibiotic Given: n/a Steroids Given: None Reason Steroids Not Administered: Not Applicable MEMBRANES Membranes Rupture Method: Spontaneous Rupture of Membranes: 10/27/2017 17:30 Length of Rupture (hr): 7.33 Amniotic Fluid Color: Bloody Amniotic Fluid Amount: Moderate Amniotic Fluid Odor: Normal STAGES OF LABOR Stage 1 hr: 4 Stage 1 min: 27 Stage 2 hr: 0 Stage 2 min: 16 Stage 3 hr: 0 Stage 3 min: 6 Total Time in Labor hr: 4 Total Time in Labor min: 49 VAGINAL DELIVERY Episiotomy: None Laceration #1: None Laceration Extension #1: N/A Other Laceration: perineal abrasion-hemostatic Laceration Repair: Not Applicable Laceration Repair Note: abrasion was hemostatic no need for repair Sponge Count Correct: Vaginal Sweep Performed Sharps Count Correct: N/A CSECTION DELIVERY Primary Indication: N/A Secondary Indication: N/A CSection Incidence: N/A Labor: N/A Elective: N/A CSection Incision: N/A BABY A INFORMATION Delivery Date/Time: 10/28/2017 00:50 Method of Delivery: Vaginal Born in Route : No : N/A Forceps: N/A Vacuum Extraction: N/A Shoulder Dystocia : No PRESENTATION/POSITION BABY A Presentation: Cephalic Cephalic Presentation: Vertex Vertex Position: Left Occipital Anterior Breech Presentation: N/A PLACENTA INFORMATION BABY A Placenta Delivery Time : 10/28/2017 00:56 Placenta Method of Delivery: Spontaneous Placenta Status: Delivered SCORES BABY A Heart Rate 1 min: >100 bpm Resp Effort 1 min: Good Cry Reflex Irritability 1 min: Cough or Sneeze or Pulls Away Muscle Tone 1 min: Active Motion Color 1 min: Blue/Pale Resuscitation Effort 1 min: Tactile Stimulation SCORE 1 MIN: 8 Heart Rate 5 min: >100 bpm Resp Effort 5 min: Good Cry Reflex Irritability 5 min: Cough or Sneeze or Pulls Away Muscle Tone 5 min: Active Motion Color 5 min: Body [place], Extremities Blue Resuscitation Effort 5 min: Tactile Stimulation SCORE 5 MIN: 9 INFORMATION BABY A Gestational Age at Delivery: 41.4 Gestational Status: Late Term- 41- 41.6 Weeks Outcome : Liveborn Infant Condition : Stable Infant Sex: Female IDENTIFICATION BABY A Infant Verification Date/Time: 10/28/2017 01:00 ID Band Number: [id number] Mother's Name Verified: Yes RN Verifying : Bonifacio Ingramco, RN Additional Verifying Personnel: KlausAhmet Marcelo, RN WEIGHT/LENGTH BABY A Birthweight (gm): 3290 Weight (lb): 7 Infant Weight (oz): 4 Infant Length (in): 20.50 Length (cm): 52.07 CORD INFORMATION BABY A No. Cord Vessels: 3 Nuchal Cord : Around Neck x1, Loose Cord Blood Taken: Yes-For Eval (Mom's Blood Type - or O+) Suction: Mouth; Nose ASSESSMENT BABY A Skin to Skin: Yes Skin to Skin Time (min): 60 SIGNATURES Assignment: Diana Glasgow MD Signature: with User ID: [email or web address] : with User ID: [email or web address]
[2017-10-28] MEDS: IBUPROFEN 800 MG TABLET PO SCH ×3 (06:51→22:39)
[2017-10-28] MEDS: ACETAMINOPHEN WITH CODEINE #3 TABLET PO PRN ×3 (07:55→20:38)
--- NOTE | 2017-10-28 09:00 | PDOC PROGRESS REPORT ---
Subjective-OB Progress Note for:: 10/28/17 Physical Exam (OB) Vital Signs: Temp Pulse Resp BP Pulse Ox 98.2 F 89 16 105/71 98 10/28/17 07:46 10/28/17 07:46 10/28/17 07:46 10/28/17 07:46 10/28/17 07:46 Intake & Output 10/27/17 10/28/17 10/29/17 06:59 06:59 06:59 Intake Total 1999 Balance 1999 Weight 65.6 kg - PIH/Pre-Eclampsia Clonus: Negative Headache: Absent Epigastric Pain: No Visual Changes: No - Lochia Lochia Amount: Small 10-25 ml Lochia Color: Rubra/Red - Abdomen Description: Soft, Round Hernia Present: No Bowel Sounds: Normoactive Flatus Presence: Present Stool: No Fundal Description: Firm, Midline Fundal Height: u/u - u/2 Objective-Diagnostic Laboratory: 10/27/17 20:23 10/27/17 10/27/17 10/27/17 20:00 20:23 20:23 WBC 10.9 H RBC 4.40 Hgb 13.2 Hct 39.2 MCV 89 MCH 30.0 MCHC 33.7 RDW 13.7 Plt Count 162 Seg Neutrophils % 77.0 Lymphocytes % 17.1 Monocytes % 5.0 Eosinophils % 0.5 Basophils % 0.4 Absolute Neutrophils 8.4 H Absolute Lymphocytes 1.9 Absolute Monocytes 0.5 Absolute Eosinophils 0.1 Absolute Basophils 0.0 Urine Color YELLOW Urine Appearance SLIGHTLY-CLOUDY Urine pH 6.0 Ur Specific [place] 1.014 Urine Protein NEGATIVE Urine Glucose (UA) NEGATIVE Urine Ketones 20 H Urine Blood MODERATE H Urine Nitrite NEGATIVE Ur Leukocyte Esterase NEGATIVE Blood Type O POSITIVE Antibody Screen NEGATIVE
[2017-10-28] MEDS: PRENATAL VITAMIN W DHA CAPSULE PO SCH (09:14)
[2017-10-28] MEDS: DOCUSATE SODIUM 100 MG CAPSULE PO SCH ×2 (09:14→17:32)
[2017-10-28] MEDS: SENNOSIDES/DOCUSATE 8.6-50 MG 1 EACH TABLET PO SCH (09:14)
[2017-10-28] MEDS: FERROUS SULFATE 325 MG TABLET PO SCH ×2 (09:14→17:32)
[2017-10-28] MEDS: FAMOTIDINE 20 MG TABLET PO SCH ×2 (09:14→22:39)
[2017-10-29] MEDS: IBUPROFEN 800 MG TABLET PO SCH ×2 (06:40→13:15)
[2017-10-29 07:29] LABS: HEMATOCRIT 31.3 % (36.0-47.0); MEAN CORPUSCULAR HEMOGLOBIN 31.3 pg (27.0-33.4); MEAN CORPUSCULAR HGB CONC 34.8 g/dL (32.0-36.0); MEAN CORPUSCULAR VOLUME 90 fl (80-97); PLATELET COUNT 154 10^3/uL (150-450); RED BLOOD COUNT 3.48 10^6/uL (3.72-5.28); RED CELL DISTRIBUTION WIDTH 13.7 % (11.5-14.0); WHITE BLOOD COUNT 7.5 10^3/uL (4.0-10.5)
[2017-10-29 08:04] LABS: HEMOGLOBIN 10.9 g/dL (12.0-15.5)
[2017-10-29 09:09] VITALS: BP 125/82
[2017-10-29] MEDS: FAMOTIDINE 20 MG TABLET PO SCH (09:23)
[2017-10-29] MEDS: FERROUS SULFATE 325 MG TABLET PO SCH ×2 (09:23→17:24)
[2017-10-29] MEDS: DOCUSATE SODIUM 100 MG CAPSULE PO SCH ×2 (09:23→17:24)
[2017-10-29] MEDS: PRENATAL VITAMIN W DHA CAPSULE PO SCH (09:23)
[2017-10-29] MEDS: SENNOSIDES/DOCUSATE 8.6-50 MG 1 EACH TABLET PO SCH (09:23)
--- NOTE | 2017-10-29 12:00 | PDOC DISCHARGE SUMMARY ---
Final Diagnosis Discharge Date: 10/29/17 - Final Diagnosis (1) Delivery normal Is this a current diagnosis for this admission?: Yes Discharge Data - Discharge Medication Prescriptions: Ibuprofen [Motrin 800 mg Tablet] 800 mg PO Q8HP PRN #60 tablet PRN Reason: Home Medications: Prenat 115/Iron Fum/Folic/Dss [ 19 Tablet] 1 tab PO DAILY 03/27/14 Ibuprofen [Motrin 800 mg Tablet] 800 mg PO Q8HP PRN #60 tablet 10/29/17 Procedures: NST Intrapartum Procedure(s): Spontaneous Vaginal Delivery - Diagnosis Test Laboratory: Temp Pulse Resp BP Pulse Ox 98.1 F 83 18 125/82 98 10/29/17 08:59 10/29/17 08:59 10/29/17 08:59 10/29/17 08:59 10/29/17 08:59 10/27/17 10/27/17 10/29/17 20:00 20:23 07:00 RBC 4.40 3.48 L Hgb 13.2 10.9 L D Hct 39.2 31.3 L Urine Opiates Screen NEGATIVE - Discharge information/Instructions Discharge Activity: Balance Activity w/Rest, Pelvic Rest Discharge Diet: Regular Disposition: HOME, SELF-CARE Follow up with: [facility] in: 3, Weeks
== END 2017-10-29 19:15 | disposition home or self-care (01) | DRG 775 ==
LOC: LC 19:33 → LR 20:02 → 2N 10-28 04:32
PROVIDERS: ADMIT Obstetrics & Gynecology; ATTEND Obstetrics & Gynecology
PROC: 10E0XZZ Delivery of Products of Conception, External Approach (ICD-10-PCS; principal; 2017-10-28)
DX: O48.0 Post-term pregnancy (principal); O69.81X0 Labor and delivery complicated by cord around neck, without compression, not applicable or unspecified; Z3A.41 41 weeks gestation of pregnancy; Z37.0 Single live birth
CPT/HCPCS: 36415; 80307; 81005; 85025; 85027; 86592; 86850; 86900; 86901; 88307; 94760; J2590; J3010; J3490

== ENCOUNTER 2018-01-01 16:31 | Emergency (ER) | payer OTHER ==
--- NOTE | 2018-01-01 17:08 | ER Document Report ---
ED General - General Chief Complaint: Nausea/Vomiting Stated Complaint: VOMITTING Time Seen by Provider: 01/01/18 17:07 Notes: Patient is a 32-year-old female that presents to the emergency department for chief complaint of nausea and vomiting and abdominal pain. Patient states she started having this pain around 4:30 in the morning, and then started having multiple episodes of vomiting, without diarrhea. She describes the pain as an aching sensation across most of her abdomen, but worse on the left side. Is also had pain in her back, radiating across. She has not been able to keep anything down, despite trying to drink water and Gatorade and zaida herbert. She states her children had similar symptoms last week, but they only lasted a few days and got better. She is approximately 8 weeks . She is currently breast-feeding. Past Medical History: Denies chronic medical conditions Past Surgical History: Denies surgical history Social History: Denies tobacco, alcohol or drug use Family History: Reviewed and noncontributory for presenting illness Allergies: Reviewed, see documented allergy list. REVIEW OF SYSTEMS: Other than noted above, the 12 point review of systems was reviewed with the patient and were negative, all pertinent findings are included in the HPI. PHYSICAL EXAMINATION: Vital signs reviewed, nursing noted reviewed. GENERAL: Patient appears uncomfortable, dry heaving currently HEAD: Atraumatic, normocephalic. EYES: Eyes appear normal, extraocular movements intact, sclera anicteric, conjunctiva are normal. ENT: nares patent, oropharynx clear without exudates. Moist mucous membranes. NECK: Normal range of motion, supple without lymphadenopathy LUNGS: Breath sounds clear to auscultation bilaterally and equal. No wheezes rales or rhonchi. HEART: Heart rate tachycardic, regular rhythm, no audible murmur ABDOMEN: Soft, mild diffuse tenderness to palpation, worse in the left lower quadrant, normoactive bowel sounds. No rebound, guarding, or rigidity. No masses appreciated. EXTREMITIES: Nontender, good range of motion, no pitting or edema. NEUROLOGICAL: No focal neurological deficits. Moves all extremities spontaneously Motor and sensory grossly intact on exam. PSYCH: Appears uncomfortable, but answering questions appropriately SKIN: Warm, Dry, normal turgor, no rashes or lesions noted on exposed skin TRAVEL OUTSIDE OF THE [place] IN LAST 30 DAYS: No - Related Data Allergies/Adverse Reactions: No Known Drug Allergies Allergy (Verified 10/18/17 11:45) Past Medical History - Social History Smoking Status: Never Smoker Family History: Reviewed & Not Pertinent Physical Exam - Vital signs Vitals: Temp Pulse Resp BP Pulse Ox 98.7 F 55 L 18 113/75 97 01/01/18 16:35 01/01/18 16:35 01/01/18 16:35 01/01/18 16:35 01/01/18 16:35 Course - Re-evaluation Re-evalutation: Patient seen and examined vital signs reviewed. Laboratory data and imaging were ordered as appropriate for the patient's presenting symptoms and complaint, with consideration of any critical or life threatening conditions that may be associated with their obtained history and exam as noted above. Patient was treated with IV fluids, IV Zofran and morphine Results were reviewed when available and demonstrated elevated hemoglobin hematocrit, consistent with hemoconcentration, and mild hypernatremia, again consistent with dehydration, for the patient's multiple episodes of vomiting. Her urinalysis did demonstrate hematuria, therefore CT of the abdomen and pelvis was ordered to evaluate for possible renal stone given the patient's nausea, vomiting and abdominal and back pain. CT scan was negative for any acute intra-abdominal process. The patient was re-evaluated and was still having some discomfort, she was given some Phenergan, for her persistent nausea, I also gave her IV Pepcid, she is given a total of 3 L of IV fluid bolus. Evaluation was most consistent with nausea and vomiting, possible gastroenteritis, however patient did have some bacteria in the urine, and some blood, this could be related to urinary tract infection, CT of the abdomen was negative, for stone, will treat the patient with a dose of IV Rocephin prior to discharge, and discharge her home with medicine for nausea including Zofran, and Phenergan, and prescribed 5 days of Keflex, she is advised to return if her symptoms worsen, and to follow-up with her primary care. Patient is agreeable to this plan of care. *Note is created using voice recognition software and may contain spelling, syntax or grammatical errors. Laboratory 01/01/18 01/01/18 01/01/18 17:09 17:09 17:09 WBC 9.9 RBC 5.39 H Hgb 15.8 H Hct 47.9 H MCV 89 MCH 29.3 MCHC 33.0 RDW 14.0 Plt Count 244 Total Counted 100 Seg Neutrophils % Not Reportable Seg Neuts % (Manual) 94 H Lymphocytes % Not Reportable Lymphocytes % (Manual) 3 L Monocytes % Not Reportable Monocytes % (Manual) 3 Eosinophils % Not Reportable Eosinophils % (Manual) 0 Basophils % Not Reportable Basophils % (Manual) 0 Absolute Neutrophils Not Reportable Abs Neuts (Manual) 9.3 H Absolute Lymphocytes Not Reportable Abs Lymphs (Manual) 0.3 L Absolute Monocytes Not Reportable Abs Monocytes (Manual) 0.3 Absolute Eosinophils Not Reportable Absolute Eos (Manual) 0.0 Absolute Basophils Not Reportable Abs Basophils (Manual) 0.0 Platelet Comment ADEQUATE Anisocytosis SLIGHT Sodium 145.1 H Potassium 4.3 Chloride 105 Carbon Dioxide 22 Anion Gap 18 BUN 17 Creatinine 0.72 Est GFR ( Amer) > 60 Est GFR (Non-Af Amer) > 60 Glucose 113 H Calcium 9.5 Total Bilirubin 0.5 Direct Bilirubin 0.2 Neonat Total Bilirubin Not Reportable Neonat Direct Bilirubin Not Reportable Neonat Indirect Bili Not Reportable AST 26 ALT 24 Alkaline Phosphatase 49 Total Protein 8.7 H Albumin 5.1 H Lipase 92.7 Serum HCG, Qual NEGATIVE Urine Color Urine Appearance Urine pH Ur Specific [place] Urine Protein Urine Glucose (UA) Urine Ketones Urine Blood Urine Nitrite Urine Bilirubin Urine Urobilinogen Ur Leukocyte Esterase Urine WBC (Auto) Urine RBC (Auto) Urine Bacteria (Auto) Squamous Epi Cells Auto Urine Mucus (Auto) Urine Ascorbic Acid 01/01/18 21:24 WBC RBC Hgb Hct MCV MCH MCHC RDW Plt Count Total Counted Seg Neutrophils % Seg Neuts % (Manual) Lymphocytes % Lymphocytes % (Manual) Monocytes % Monocytes % (Manual) Eosinophils % Eosinophils % (Manual) Basophils % Basophils % (Manual) Absolute Neutrophils Abs Neuts (Manual) Absolute Lymphocytes Abs Lymphs (Manual) Absolute Monocytes Abs Monocytes (Manual) Absolute Eosinophils Absolute Eos (Manual) Absolute Basophils Abs Basophils (Manual) Platelet Comment Anisocytosis Sodium Potassium Chloride Carbon Dioxide Anion Gap BUN Creatinine Est GFR ( Amer) Est GFR (Non-Af Amer) Glucose Calcium Total Bilirubin Direct Bilirubin Neonat Total Bilirubin Neonat Direct Bilirubin Neonat Indirect Bili AST ALT Alkaline Phosphatase Total Protein Albumin Lipase Serum HCG, Qual Urine Color YELLOW Urine Appearance SLIGHTLY-CLOUDY Urine pH 5.0 Ur Specific [place] 1.023 Urine Protein NEGATIVE Urine Glucose (UA) NEGATIVE Urine Ketones 20 H Urine Blood MODERATE H Urine Nitrite NEGATIVE Urine Bilirubin NEGATIVE Urine Urobilinogen NEGATIVE Ur Leukocyte Esterase NEGATIVE Urine WBC (Auto) 1 Urine RBC (Auto) 1 Urine Bacteria (Auto) TRACE Squamous Epi Cells Auto 1 Urine Mucus (Auto) MOD Urine Ascorbic Acid NEGATIVE Limited or Localized CT 01/01/18 21:52 IMPRESSION: No acute abnormality in the abdomen or pelvis. - Vital Signs Vital signs: Temp Pulse Resp BP Pulse Ox 99.3 F 118 H 16 103/68 97 01/01/18 21:46 01/01/18 17:06 01/01/18 21:01 01/01/18 21:01 01/01/18 21:01 - Laboratory Result Diagrams: 01/01/18 17:09 01/01/18 17:09 Laboratory results interpreted by me: 01/01/18 01/01/18 01/01/18 17:09 17:09 21:24 RBC 5.39 H Hgb 15.8 H Hct 47.9 H Seg Neuts % (Manual) 94 H Lymphocytes % (Manual) 3 L Abs Neuts (Manual) 9.3 H Abs Lymphs (Manual) 0.3 L Sodium 145.1 H Glucose 113 H Total Protein 8.7 H Albumin 5.1 H Urine Ketones 20 H Urine Blood MODERATE H - EKG Interpretation by Me Additional EKG results interpreted by me: EKG demonstrates sinus rhythm with a ventricular rate of 90 bpm, normal axis, QTC 476 ms, no evidence of acute ischemia on this EKG, no ECG for prior comparison. Discharge - Discharge Clinical Impression: Dehydration, Tachycardia UTI (urinary tract infection) Qualifiers: Urinary tract infection type: site unspecified Hematuria presence: with hematuria Qualified Code(s): N39.0 - Urinary tract infection, site not specified Nausea and vomiting Qualifiers: Vomiting type: unspecified Vomiting Intractability: non-intractable Qualified Code(s): R11.2 - Nausea with vomiting, unspecified Condition: Stable Disposition: HOME, SELF-CARE Instructions: Urinary Tract Infection ([facility]), Vomiting ([facility]) Additional Instructions: Please return to the emergency department if you have any worsening, or concern of your symptoms. Please return to the emergency department if you develop chest pain, difficulty breathing, severe abdominal pain, or ongoing vomiting. Please follow-up with your primary care physician in 2-3 days and any other recommended physicians. If prescribed, take all medications as directed. If you have any questions or concerns do not hesitate to return the emergency department for evaluation. Prescriptions: Cephalexin Monohydrate [Keflex 500 mg Capsule] 500 mg PO TID 5 Days #15 capsule Promethazine HCl [Phenergan 25 mg Tablet] 1 tab PO Q6H PRN #15 tablet PRN Reason: nausea and vomiting Referrals: JAIME HICKMAN MD [Primary Care Provider] - Follow up in 3-5 days
[2018-01-01] MEDS ORDERED: NORMAL SALINE 1000 ML 1,000 ML IV ONE (17:15)
[2018-01-01] MEDS ORDERED: ONDANSETRON HCL INJ/PF 4 MG/2 ML SDV IV ONE ×2 (17:15→18:08)
[2018-01-01] MEDS ORDERED: RINGERS SOLUTION,LACTATED 1,000 ML IV ONE ×2 (17:16→19:09)
[2018-01-01 17:21] LABS: HEMATOCRIT 47.9 % (36.0-47.0); HEMOGLOBIN 15.8 g/dL (12.0-15.5); MEAN CORPUSCULAR HEMOGLOBIN 29.3 pg (27.0-33.4); MEAN CORPUSCULAR VOLUME 89 fl (80-97); PLATELET COUNT 244 10^3/uL (150-450); RED BLOOD COUNT 5.39 10^6/uL (3.72-5.28); WHITE BLOOD COUNT 9.9 10^3/uL (4.0-10.5)
[2018-01-01 17:40] LABS: ABSOLUTE LYMPHOCYTES# (MANUAL) 0.3 10^3/uL (0.5-4.7); ABSOLUTE MONOCYTES # (MANUAL) 0.3 10^3/uL (0.1-1.4); ABSOLUTE NEUTROPHILS# (MANUAL) 9.3 10^3/uL (1.7-8.2); ANISOCYTOSIS SLIGHT; BASOPHILS % (MANUAL) 0 % (0-2); EOSINOPHILS % (MANUAL) 0 % (0-6); LYMPHOCYTES % (MANUAL) 3 % (13-45); MONOCYTES % (MANUAL) 3 % (3-13); PLATELET COMMENT ADEQUATE; SEGMENTED NEUTROPHILS % (MAN) 94 % (42-78); TOTAL CELLS COUNTED 100
[2018-01-01 17:42] LABS: ALANINE AMINOTRANSFERASE 24 U/L (9-52); ALBUMIN 5.1 g/dL (3.5-5.0); ALKALINE PHOSPHATASE 49 U/L (38-126); ANION GAP 18 (5-19); ASPARTATE AMINO TRANSFERASE 26 U/L (14-36); BILIRUBIN,DIRECT 0.2 mg/dL (0.0-0.4); BILIRUBIN,TOTAL 0.5 mg/dL (0.2-1.3); BLOOD UREA NITROGEN 17 mg/dL (7-20); CALCIUM 9.5 mg/dL (8.4-10.2); CARBON DIOXIDE 22 mmol/L (22-30); CHLORIDE 105 mmol/L (98-107); GLUCOSE 113 mg/dL (75-110); LIPASE 92.7 U/L (23-300); POTASSIUM 4.3 mmol/L (3.6-5.0); SODIUM 145.1 mmol/L (137-145); TOTAL PROTEIN 8.7 g/dL (6.3-8.2)
[2018-01-01] MEDS ORDERED: MORPHINE SULFATE 10 MG/ML INJ IV ONE (18:08)
[2018-01-01] MEDS ORDERED: HYDROMORPHONE HCL INJ/PF 2 MG/ML AMPULE IV ONE (20:53)
[2018-01-01] MEDS ORDERED: FAMOTIDINE INJ/PF 20 MG/2 ML SDV IV ONE (20:53)
[2018-01-01 21:35] LABS: APPEARANCE,URINE SLIGHTLY-CLOUDY; BILIRUBIN,URINE NEGATIVE (NEGATIVE); COLOR,URINE YELLOW; GLUCOSE, URINE NEGATIVE (NEGATIVE); KETONES,URINE 20 mg/dL (NEGATIVE); LEUKOCYTE ESTERASE,URINE NEGATIVE (NEGATIVE); NITRITE,URINE NEGATIVE (NEGATIVE); PROTEIN,URINE NEGATIVE (NEGATIVE); URINE SPECIFIC GRAVITY 1.023; UROBILINOGEN,URINE NEGATIVE mg/dL (<2.0)
[2018-01-01] MEDS ORDERED: PROMETHAZINE HCL INJ 25 MG/1 ML VIAL IV ONE (21:39)
--- NOTE | 2018-01-01 21:41 | EKG REPORT ---
SEVERITY:- NORMAL ECG - SINUS RHYTHM : Confirmed by: Kaylee Romero MD 01-Jan-2018 21:41:06
--- NOTE | 2018-01-01 22:34 | RADIOLOGY REPORT (SQ) ---
CT ABDOMEN WITHOUT IV CONTRAST HISTORY: Left flank pain. Hematuria. COMPARISON: None. TECHNIQUE: CT scan of the abdomen and pelvis without IV contrast. This exam was performed according to our departmental dose-optimization program, which includes automated exposure control, adjustment of the mA and/or kV according to patient size and/or use of iterative reconstruction technique. FINDINGS: Please note that the evaluation of the solid and hollow abdominal viscera is limited without IV contrast. Lung bases are clear. No pleural or pericardial effusions. Liver, spleen, and pancreas are unremarkable. No gallstones by CT criteria. No adrenal masses are identified. No urinary calculus or obstructive uropathy. Uterus and ovaries are unremarkable. Small amount of free fluid in the pelvic cul-de-sac, likely physiologic. No bowel obstruction. Appendix is not well visualized; however there are no inflammatory changes in the right lower quadrant. Abdominal aorta is normal caliber. No acute osseous findings. IMPRESSION: No acute abnormality in the abdomen or pelvis.
[2018-01-01] MEDS ORDERED: CEFTRIAXONE INJ 1000 MG VIAL IV ONE (22:59)
[2018-01-01] MEDS ORDERED: KETOROLAC TROMETHAMINE INJ/PF 30 MG/1 ML SDV IV ONE (23:06)
[2018-01-01] MEDS ORDERED: ONDANSETRON ODT 4 MG TAB (6 TAB/ER DISP) PO PRN (23:07)
[2018-01-01 23:49] VITALS: BP 102/67
== END 2018-01-01 23:45 | disposition home or self-care (01) ==
LOC: ER 16:31
DX: R11.2 Nausea with vomiting, unspecified (principal); N39.0 Urinary tract infection, site not specified; R31.9 Hematuria, unspecified; E87.0 Hyperosmolality and hypernatremia; E86.0 Dehydration; M54.9 Dorsalgia, unspecified
CPT/HCPCS: 93005; 96376; 99285; 96361; 96375; 96365; 36415; 83690; 84703; 85025; 80053; 81001; 76380; 93010; J1885; J2270; J1170; J2550; J0696; J2405; J7030; J7120; S0028

== ENCOUNTER 2019-03-30 11:02 | Emergency (ER) | payer OTHER ==
[2019-03-30] MEDS ORDERED: PROMETHAZINE HCL INJ 25 MG/1 ML VIAL IM ONE (11:24)
[2019-03-30] MEDS ORDERED: RINGERS SOLUTION,LACTATED 1,000 ML IV ONE ×2 (11:25→13:32)
[2019-03-30] MEDS ORDERED: KETOROLAC TROMETHAMINE INJ/PF 30 MG/1 ML SDV IV ONE (11:25)
--- NOTE | 2019-03-30 11:27 | ER Document Report ---
ED Medical Screen (RME) - General Chief Complaint: Vomiting Stated Complaint: VOMITING Time Seen by Provider: 03/30/19 11:21 Primary Care Provider: JAIME HICKMAN MD [Primary Care Provider] - Follow up as needed TRAVEL OUTSIDE OF THE [place] IN LAST 30 DAYS: No - HPI Notes: 03/30/19 11:26 Patient is a 34-year-old female no significant past medical history who presents with spouse complaining of low back pain, body ache, fever, nausea/vomiting, nasal congestion/discharge, cough over the past 2 days. Patient states that she has not been able to keep anything down. She is currently actively vomiting here in triage. Spouse states that it did start out with lower abdominal pain which has since resolved. Denies drug allergies. I have treated and performed a rapid initial assessment of this patient. A comprehensive ED assessment and evaluation of the patient, analysis of test results and completion of medical decision making process will be conducted by additional ED providers. PHYSICAL EXAMINATION: GENERAL: pt activley vomiting and shaking in triage. answers questions appropriately otherwise. - Related Data Allergies/Adverse Reactions: No Known Drug Allergies Allergy (Verified 10/18/17 11:45) Past Medical History Renal/ Medical History: Denies: Hx Peritoneal Dialysis Physical Exam - Vital signs Vitals: Pulse Resp BP Pulse Ox 132 H 22 H 95/62 L 100 03/30/19 11:07 03/30/19 11:07 03/30/19 11:07 03/30/19 11:07 Course - Vital Signs Vital signs: Temp Pulse Resp BP Pulse Ox 102.7 F H 132 H 22 H 95/62 L 100 03/30/19 11:21 03/30/19 11:07 03/30/19 11:07 03/30/19 11:07 03/30/19 11:07 Doctor's Discharge - Discharge Referrals: JAIME HICKMAN MD [Primary Care Provider] - Follow up as needed
[2019-03-30] MEDS ORDERED: ONDANSETRON HCL INJ/PF 4 MG/2 ML SDV IV ONE (11:48)
--- NOTE | 2019-03-30 11:52 | ER Document Report ---
ED General - General Chief Complaint: Back Pain Stated Complaint: VOMITING Time Seen by Provider: 03/30/19 11:21 Primary Care Provider: JAIME HICKMAN MD [ACTIVE STAFF] - Follow up as needed Mode of Arrival: Wheelchair Information source: Patient Notes: Patient states that she has had cough and congestion for the past 2 days. Fever started yesterday. Patient does report multiple sick contacts in the household with similar symptoms. Patient was at home today around 1030 and passed out briefly for a few seconds. Patient complains of feeling lightheaded and dizzy. Patient reports headache pain for the past 3 days. Patient states that this afternoon she developed low back pain. Patient denies any urinary symptoms. Patient does report nausea and vomiting today. TRAVEL OUTSIDE OF THE [place] IN LAST 30 DAYS: No - HPI Onset: Other - 3 days Onset/Duration: Persistent Quality of pain: Achy, Pressure Pain Level: 4 Associated symptoms: Nonproductive cough, Fever, Headache, Nausea, Vomiting. d enies: Chest pain, Diarrhea, Shortness of breath Exacerbated by: Denies Relieved by: Denies Similar symptoms previously: No Recently seen / treated by doctor: No - Related Data Allergies/Adverse Reactions: No Known Drug Allergies Allergy (Verified 03/30/19 11:51) Past Medical History - General Information source: Patient, Relative - Social History Smoking Status: Never Smoker Frequency of alcohol use: None Drug Abuse: None Lives with: Family Family History: Reviewed & Not Pertinent Patient has suicidal ideation: No Patient has homicidal ideation: No - Medical History Medical History: Negative Renal/ Medical History: Denies: Hx Peritoneal Dialysis Surgical Hx: Negative Review of Systems - Review of Systems Constitutional: Chills, Fever EENT: Nose congestion, Throat pain Cardiovascular: Syncope, Dizziness. denies: Chest pain Respiratory: Cough. denies: Short of breath Gastrointestinal: Nausea, Vomiting. denies: Abdominal pain, Diarrhea Genitourinary: No symptoms reported. denies: Dysuria Female Genitourinary: No symptoms reported Musculoskeletal: Back pain Skin: No symptoms reported. denies: Rash Hematologic/Lymphatic: No symptoms reported Neurological/Psychological: Headaches Physical Exam - Vital signs Vitals: Pulse Resp BP Pulse Ox 132 H 22 H 95/62 L 100 03/30/19 11:07 03/30/19 11:07 03/30/19 11:07 03/30/19 11:07 - General General appearance: Alert In distress: Moderate - HEENT Head: Normocephalic Eyes: Normal Conjunctiva: Normal Nasal: Clear rhinorrhea Mouth/Lips: Normal Mucous membranes: Dry Neck: Normal, Supple. No: Lymphadenopathy, Meningismus - Respiratory Respiratory status: No respiratory distress Chest status: Nontender Breath sounds: Nonproductive cough Chest palpation: Normal - Cardiovascular Rhythm: Tachycardia Heart sounds: S1 appreciated, S2 appreciated Murmur: No - Abdominal Inspection: Normal Distension: No distension Bowel sounds: Normal Tenderness: Nontender Organomegaly: No organomegaly - Back Back: Tender - Lumbar paraspinal, CVA tenderness - bilat - Extremities General upper extremity: Normal inspection, Normal ROM General lower extremity: Normal inspection, Normal ROM - Neurological Neuro grossly intact: Yes Cognition: Normal Zach Coma Scale Eye Opening: Spontaneous [place] Coma Scale Verbal: Oriented [place] Coma Scale Motor: Obeys Commands [place] Coma Scale Total: 15 - Psychological Associated symptoms: Normal affect, Normal mood - Skin Skin Temperature: Warm Skin Moisture: Dry Skin Color: Normal Course - Re-evaluation Re-evalutation: 03/30/19 14:25 Patient nontoxic in appearance although does appear to feel bad. Tachycardia has improved. Patient blood pressure 90s over 60s, review of previous visits demonstrates that patient typically runs low 100s over 60s. Patient's abdomen soft, nontender. No meningeal irritation symptoms. Patient does have lumbar paraspinal tenderness. Dr. Morse consulted and to bedside for examination. Recommends adding throat culture, treating for likely strep pharyngitis with Rocephin and prescription for amoxicillin. Advises making sure patient is able to ambulate without difficulty. 03/30/19 17:16 Patient treated with pain medication, patient reports headache and low back pain have improved to a 2/5 scale. Patient denies needing additional pain medication at this time. 03/30/19 18:10 Patient blood pressure is 93/68, patient is typical blood pressure runs 100 over 60s. Patient does report feeling better at this time. Patient nontoxic in appearance. Patient with 2 normal lactic acid test results. Patient states that pain feels manageable although is agreeable to take a Fioricet for her headache pain at this time. No concern for meningitis or encephalitis at this time, no concern for spinal epidural abscess. Patient without any midline point tenderness of spine. The patient presents with headache without signs of [employer] bleed, stroke, infection, or other serious etiology. The patient is neurologically intact. Given the extremely low risk of these diagnoses further testing and evaluation for these possibilities does not appear to be indicated at this time. The patient has been instructed to return if the symptoms worsen or change in any way. - Vital Signs Vital signs: Temp Pulse Resp BP Pulse Ox 98.2 F 112 H 21 H 93/68 L 98 03/30/19 18:48 03/30/19 12:03 03/30/19 18:01 03/30/19 18:00 03/30/19 18:01 - Laboratory Result Diagrams: 03/30/19 12:05 03/30/19 12:05 Laboratory results interpreted by me: 03/30/19 03/30/19 12:05 12:05 RDW 21.7 H Plt Count 139 L Lymph % (Auto) 8.1 L Absolute Lymphs (auto) 0.4 L Seg Neutrophils % 80.8 H Leukocyte Esterase Rfl TRACE H Urine Ascorbic Acid 20 H Labs- Entire Visit 03/30/19 03/30/19 03/30/19 11:50 12:05 12:05 WBC 4.8 RBC 4.59 Hgb 12.9 Hct 39.5 MCV 86 MCH 28.1 MCHC 32.7 RDW 21.7 H Plt Count 139 L Lymph % (Auto) 8.1 L [place] % (Auto) 10.5 Eos % (Auto) 0.1 Baso % (Auto) 0.5 Absolute Neuts (auto) 3.8 Absolute Lymphs (auto) 0.4 L Absolute Monos (auto) 0.5 Absolute Eos (auto) 0.0 Absolute Basos (auto) 0.0 Seg Neutrophils % 80.8 H Large Platelets PRESENT Platelet Comment DECREASED Hypochromasia SLIGHT Anisocytosis 3+ Ovalocytes SLIGHT PT 13.1 INR 0.99 VBG pH VBG pCO2 VBG HCO3 VBG Base Excess Sodium Potassium Chloride Carbon Dioxide Anion Gap BUN Creatinine Est GFR ( Amer) Est GFR (MDRD) Non-Af Glucose POC Glucose Lactic Acid Calcium Magnesium Total Bilirubin Direct Bilirubin Neonat Total Bilirubin Neonat Direct Bilirubin Neonat Indirect Bili AST ALT Alkaline Phosphatase Total Protein Albumin Lipase Serum HCG, Qual Urine Color Urine Appearance Urine pH Ur Specific [place] Urine Protein Urine Glucose (UA) Urine Ketones Urine Blood Urine Nitrite (Reflex) Urine Bilirubin Urine Urobilinogen Leukocyte Esterase Rfl Urine RBC (Auto) Urine Bacteria (Auto) Urine WBC (Reflex) Squamous Epi Cells Auto Urine Mucus (Auto) Urine Ascorbic Acid Influenza A (Rapid) NEGATIVE Influenza B (Rapid) NEGATIVE 03/30/19 03/30/19 03/30/19 12:05 12:05 12:05 WBC RBC Hgb Hct MCV MCH MCHC RDW Plt Count Lymph % (Auto) [place] % (Auto) Eos % (Auto) Baso % (Auto) Absolute Neuts (auto) Absolute Lymphs (auto) Absolute Monos (auto) Absolute Eos (auto) Absolute Basos (auto) Seg Neutrophils % Large Platelets Platelet Comment Hypochromasia Anisocytosis Ovalocytes PT INR VBG pH 7.39 VBG pCO2 45.6 VBG HCO3 27.0 VBG Base Excess 1.6 Sodium 138.0 Potassium 4.1 Chloride 101 Carbon Dioxide 28 Anion Gap 9 BUN 11 Creatinine 0.61 Est GFR ( Amer) > 60 Est GFR (MDRD) Non-Af > 60 Glucose 99 POC Glucose Lactic Acid 0.7 Calcium 8.7 Magnesium 2.0 Total Bilirubin 0.2 Direct Bilirubin 0.0 Neonat Total Bilirubin Not Reportable Neonat Direct Bilirubin Not Reportable Neonat Indirect Bili Not Reportable AST 25 ALT 21 Alkaline Phosphatase 39 Total Protein 7.2 Albumin 4.4 Lipase 129.5 Serum HCG, Qual Urine Color Urine Appearance Urine pH Ur Specific [place] Urine Protein Urine Glucose (UA) Urine Ketones Urine Blood Urine Nitrite (Reflex) Urine Bilirubin Urine Urobilinogen Leukocyte Esterase Rfl Urine RBC (Auto) Urine Bacteria (Auto) Urine WBC (Reflex) Squamous Epi Cells Auto Urine Mucus (Auto) Urine Ascorbic Acid Influenza A (Rapid) Influenza B (Rapid) 03/30/19 03/30/19 03/30/19 12:05 12:05 12:09 WBC RBC Hgb Hct MCV MCH MCHC RDW Plt Count Lymph % (Auto) [place] % (Auto) Eos % (Auto) Baso % (Auto) Absolute Neuts (auto) Absolute Lymphs (auto) Absolute Monos (auto) Absolute Eos (auto) Absolute Basos (auto) Seg Neutrophils % Large Platelets Platelet Comment Hypochromasia Anisocytosis Ovalocytes PT INR VBG pH VBG pCO2 VBG HCO3 VBG Base Excess Sodium Potassium Chloride Carbon Dioxide Anion Gap BUN Creatinine Est GFR ( Amer) Est GFR (MDRD) Non-Af Glucose POC Glucose 94 Lactic Acid Calcium Magnesium Total Bilirubin Direct Bilirubin Neonat Total Bilirubin Neonat Direct Bilirubin Neonat Indirect Bili AST ALT Alkaline Phosphatase Total Protein Albumin Lipase Serum HCG, Qual NEGATIVE Urine Color YELLOW Urine Appearance SLIGHTLY-CLOUDY Urine pH 6.0 Ur Specific [place] 1.019 Urine Protein NEGATIVE Urine Glucose (UA) NEGATIVE Urine Ketones NEGATIVE Urine Blood NEGATIVE Urine Nitrite (Reflex) NEGATIVE Urine Bilirubin NEGATIVE Urine Urobilinogen NEGATIVE Leukocyte Esterase Rfl TRACE H Urine RBC (Auto) 2 Urine Bacteria (Auto) TRACE Urine WBC (Reflex) 5 Squamous Epi Cells Auto 6 Urine Mucus (Auto) RARE Urine Ascorbic Acid 20 H Influenza A (Rapid) Influenza B (Rapid) 03/30/19 14:42 WBC RBC Hgb Hct MCV MCH MCHC RDW Plt Count Lymph % (Auto) [place] % (Auto) Eos % (Auto) Baso % (Auto) Absolute Neuts (auto) Absolute Lymphs (auto) Absolute Monos (auto) Absolute Eos (auto) Absolute Basos (auto) Seg Neutrophils % Large Platelets Platelet Comment Hypochromasia Anisocytosis Ovalocytes PT INR VBG pH VBG pCO2 VBG HCO3 VBG Base Excess Sodium Potassium Chloride Carbon Dioxide Anion Gap BUN Creatinine Est GFR ( Amer) Est GFR (MDRD) Non-Af Glucose POC Glucose Lactic Acid 0.9 Calcium Magnesium Total Bilirubin Direct Bilirubin Neonat Total Bilirubin Neonat Direct Bilirubin Neonat Indirect Bili AST ALT Alkaline Phosphatase Total Protein Albumin Lipase Serum HCG, Qual Urine Color Urine Appearance Urine pH Ur Specific [place] Urine Protein Urine Glucose (UA) Urine Ketones Urine Blood Urine Nitrite (Reflex) Urine Bilirubin Urine Urobilinogen Leukocyte Esterase Rfl Urine RBC (Auto) Urine Bacteria (Auto) Urine WBC (Reflex) Squamous Epi Cells Auto Urine Mucus (Auto) Urine Ascorbic Acid Influenza A (Rapid) Influenza B (Rapid) - Diagnostic Test Radiology reviewed: Reports reviewed Discharge - Discharge Clinical Impression: Tonsillitis, Viral illness Headache Qualifiers: Headache type: unspecified Headache chronicity pattern: unspecified pattern Intractability: not intractable Qualified Code(s): R51 - Headache Low back pain Qualifiers: Chronicity: unspecified Back pain laterality: bilateral Sciatica presence: without sciatica Qualified Code(s): M54.5 - Low back pain Condition: Stable Disposition: HOME, SELF-CARE Instructions: Acetaminophen, Amoxicillin ([facility]), Fever ([facility]), Headache ([facility]), Use of Rjrg-Soj-Burozet Ibuprofen ([facility]), Low Back Pain ([facility]), Tonsillitis ([facility]), Viral Syndrome ([facility]) Additional Instructions: Return immediately for any new or worsening symptoms: Worsening pain, vomiting, persistent fever or any new or worse symptoms Followup with your primary care provider, call tomorrow to make a followup appointment Stay well-hydrated at home Prescriptions: Amoxicillin 500 mg PO TID #30 tablet Butalb/Acetaminophen/Caffeine [Fioricet (50-325-40 mg) Tablet] 1 tab PO Q4H PRN #15 each PRN Reason: Lidocaine [Lidoderm 5% (700 mg) Transdermal Patch] 1 patch TP DAILY PRN #10 adh..patch PRN Reason: Ondansetron [Zofran Odt 4 mg Tablet] 1 tab PO Q6H #15 tab.[email or web address] Referrals: JAIME HICKMAN MD [ACTIVE STAFF] - Follow up as needed
--- NOTE | 2019-03-30 12:16 | RADIOLOGY REPORT (SQ) ---
EXAM DESCRIPTION: CHEST SINGLE VIEW COMPLETED DATE/TIME: 03/30/2019 10:47 am REASON FOR STUDY: cough COMPARISON: None. EXAM PARAMETERS: NUMBER OF VIEWS: One view. TECHNIQUE: Single frontal radiographic view of the chest acquired. RADIATION DOSE: NA LIMITATIONS: None. FINDINGS: LUNGS AND PLEURA: Lungs are hyperinflated. No opacities, masses or pneumothorax. No pleur al effusion. MEDIASTINUM AND HILAR STRUCTURES: No masses. Contour normal. HEART AND VASCULAR STRUCTURES: Heart normal in size. Normal vasculature. BONES: No acute findings. HARDWARE: None in the chest. OTHER: No other significant finding. IMPRESSION: NO ACUTE RADIOGRAPHIC FINDING IN THE CHEST. TECHNICAL DOCUMENTATION: JOB ID: [id number] [employer]- All Rights Reserved Reading location - IP/workstation name: [email or web address]
[2019-03-30 12:25] LABS: VENOUS BLOOD BASE EXCESS 1.6 mmol/L; VENOUS BLOOD PCO2 45.6 mmHg (35-63); VENOUS BLOOD PH 7.39 (7.30-7.42)
[2019-03-30 12:26] LABS: ABSOLUTE LYMPHOCYTES (AUTO) 0.4 10^3/uL (0.5-4.7); ABSOLUTE MONOCYTES (AUTO) 0.5 10^3/uL (0.1-1.4); ABSOLUTE NEUT (AUTO) 3.8 10^3/uL (1.7-8.2); BASOPHILS % (AUTO) 0.5 % (0-2); EOSINOPHILS % (AUTO) 0.1 % (0-6); HEMATOCRIT 39.5 % (36.0-47.0); HEMOGLOBIN 12.9 g/dL (12.0-15.5); LYMPHOCYTES % (AUTO) 8.1 % (13-45); MEAN CORPUSCULAR HEMOGLOBIN 28.1 pg (27.0-33.4); MEAN CORPUSCULAR HGB CONC 32.7 g/dL (32.0-36.0); MEAN CORPUSCULAR VOLUME 86 fl (80-97); MONOCYTES % (AUTO) 10.5 % (3-13); PLATELET COUNT 139 10^3/uL (150-450); RED BLOOD COUNT 4.59 10^6/uL (3.72-5.28); RED CELL DISTRIBUTION WIDTH 21.7 % (11.5-14.0); SEGMENTED NEUTROPHILS % (AUTO) 80.8 % (42-78); TOTAL CELLS COUNTED % (AUTO) 100 %; WHITE BLOOD COUNT 4.8 10^3/uL (4.0-10.5)
[2019-03-30 12:31] LABS: INTERNATIONAL RATION (INR) 0.99; PROTHROMBIN TIME 13.1 SEC (11.4-15.4)
[2019-03-30 12:34] LABS: APPEARANCE,URINE SLIGHTLY-CLOUDY; BILIRUBIN,URINE NEGATIVE (NEGATIVE); COLOR,URINE YELLOW; GLUCOSE, URINE NEGATIVE (NEGATIVE); KETONES,URINE NEGATIVE (NEGATIVE); PROTEIN,URINE NEGATIVE (NEGATIVE); URINE SPECIFIC GRAVITY 1.019; UROBILINOGEN,URINE NEGATIVE mg/dL (<2.0)
[2019-03-30 12:41] LABS: ANISOCYTOSIS 3+; HYPOCHROMASIA SLIGHT; OVALOCYTES SLIGHT; PLATELET COMMENT DECREASED
[2019-03-30 12:42] LABS: PLATELET LARGE PRESENT
[2019-03-30 12:45] LABS: ALBUMIN 4.4 g/dL (3.5-5.0); ALKALINE PHOSPHATASE 39 U/L (38-126); ANION GAP 9 (5-19); ASPARTATE AMINO TRANSFERASE 25 U/L (14-36); BILIRUBIN,TOTAL 0.2 mg/dL (0.2-1.3); BLOOD UREA NITROGEN 11 mg/dL (7-20); CALCIUM 8.7 mg/dL (8.4-10.2); CARBON DIOXIDE 28 mmol/L (22-30); CHLORIDE 101 mmol/L (98-107); GLUCOSE 99 mg/dL (75-110); POTASSIUM 4.1 mmol/L (3.6-5.0); TOTAL PROTEIN 7.2 g/dL (6.3-8.2)
[2019-03-30 12:47] LABS: A TYPE INFLUENZA AG NEGATIVE (NEGATIVE); B INFLUENZA AG NEGATIVE (NEGATIVE)
[2019-03-30] MEDS ORDERED: ACETAMINOPHEN 325 MG TABLET PO ONE (13:32)
[2019-03-30] MEDS ORDERED: CEFTRIAXONE 1 GM/D5W RTU 1 GM/50 ML RTUPB IV ONE (14:24)
[2019-03-30] MEDS ORDERED: FENTANYL CITRATE INJ/PF 100 MCG/2 ML AMPUL IV ONE (15:42)
[2019-03-30] MEDS ORDERED: LIDOCAINE 5% (700 MG) TRANSDERMAL ADH..PATCH TP ONE (17:14)
[2019-03-30] MEDS ORDERED: BUTALB/ACETAMINOPHEN/CAFFEINE 1 TAB EACH PO ONE (18:08)
[2019-03-30 18:37] VITALS: BP 93/68
--- NOTE | 2019-03-30 21:19 | EKG REPORT ---
SEVERITY:- OTHERWISE NORMAL ECG - SINUS TACHYCARDIA : Confirmed by: Dona Hernandez 30-Mar-2019 21:18:52
== END 2019-03-30 18:52 | disposition home or self-care (01) ==
LOC: ER 11:02
DX: J03.90 Acute tonsillitis, unspecified (principal); B34.9 Viral infection, unspecified; R51 Headache; M54.5 Low back pain; R11.2 Nausea with vomiting, unspecified; M79.10 Myalgia, unspecified site; R50.9 Fever, unspecified; R09.81 Nasal congestion; R00.0 Tachycardia, unspecified; R42 Dizziness and giddiness
CPT/HCPCS: 93005; 99284; 96361; 96375; 96365; 36415; 87040; 87070; 82962; 83605; 83690; 83735; 84703; 85025; 85610; 80053; 81001; 82803; 87804; 71045; 93010; J3490; J3010; J1885; J2405; J7120; J0696